=== PATIENT | female | born 1935 | race Caucasian/White ===

== ENCOUNTER → 2016-02-20 | Outpatient (CLI) | payer MEDICARE | LOC: RAD 16:08 | PROVIDERS: ATTEND Internal Medicine | DX: R41.3 Other amnesia (principal) | CPT/HCPCS: 70450 ==

== ENCOUNTER 2016-03-29 23:50 | Emergency (ER) | payer MEDICARE ==
[2016-03-30] MEDS ORDERED: LIDOCAINE 4%/TETRACAINE 0.5%/EPI 0.18% 5 ML TOPICAL SOLN TOP ONE (00:03)
[2016-03-30] MEDS ORDERED: DIPH/PERTUSS(ACELL)/TETANUS VAC/PF 0.5 ML SYR (>=10YO) IM ONE (00:04)
--- NOTE | 2016-03-30 00:05 | ER Document Report ---
ED Wound - General Stated Complaint: ANKLE LACERATION Time seen by provider: 00:00 Notes: Patient is a 80-year-old female that comes emergency department for chief complaint of a bleeding area on her left lateral ankle that started earlier this evening, patient is unsure if she scratched or grazed the area, the area has not stopped bleeding. Patient is on warfarin for atrial fibrillation. Patient states she does not think she is up-to-date on her tetanus. TRAVEL OUTSIDE OF THE [place] IN LAST 30 DAYS: No - Related Data Allergies/Adverse Reactions: hydromorphone HCl [From Dilaudid] Allergy (Intermediate, Verified 11/02/13 01:45 ) itching all over gabapentin [Gabapentin] Allergy (Verified 10/04/14 17:36) pregabalin [From Lyrica] Allergy (Verified 10/04/14 17:36) Past Medical History - General Information source: Patient - Social History Smoking Status: Never Smoker Frequency of alcohol use: None Drug Abuse: None Lives with: Family Family History: Reviewed & Not Pertinent - Past Medical History Cardiac Medical History: Reports: Hx Atrial Fibrillation, Hx Hypercholesterolemia, Hx Hypertension Denies: Hx Heart Attack Pulmonary Medical History: Reports: Hx Bronchitis - 1973, Hx Pneumonia - as a child Denies: Hx Asthma, Hx COPD Neurological Medical History: Denies: Hx Seizures Endocrine Medical History: Reports: Hx Diabetes Mellitus Type 2 GI Medical History: Denies: Hx Hepatitis, Hx Hiatal Hernia, Hx Ulcer Musculoskeltal Medical History: 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 Denies: Hx Mastectomy, Hx Open Heart Surgery, Hx Pacemaker - Immunizations Hx Diphtheria, Pertussis, Tetanus Vaccination: Yes Hx Pneumococcal Vaccination: 02/16/07 Review of Systems - Review of Systems Constitutional: No symptoms reported EENT: No symptoms reported Cardiovascular: No symptoms reported Respiratory: No symptoms reported Gastrointestinal: No symptoms reported Genitourinary: No symptoms reported Female Genitourinary: No symptoms reported Musculoskeletal: No symptoms reported Skin: See HPI Hematologic/Lymphatic: No symptoms reported Neurological/Psychological: No symptoms reported Physical Exam - Vital signs Vitals: Temp Pulse Resp BP Pulse Ox 98.1 F 84 20 122/63 96 03/30/16 01:20 03/30/16 01:20 03/30/16 01:20 03/30/16 01:20 03/30/16 01:20 Interpretation: Normal - General General appearance: Appears well, Alert In distress: None - HEENT Head: Normocephalic, Atraumatic Eyes: Normal Pupils: PERRL - Respiratory Respiratory status: No respiratory distress Chest status: Nontender Breath sounds: Normal Chest palpation: Normal - Cardiovascular Rhythm: Regular Heart sounds: Normal auscultation Murmur: No - Abdominal Inspection: Normal Distension: No distension Bowel sounds: Normal Tenderness: Nontender Organomegaly: No organomegaly - Back Back: Normal, Nontender - Extremities General upper extremity: Normal inspection, Nontender, Normal color, Normal ROM , Normal temperature General lower extremity: Other - Right lateral distal tibial area with a very small superficial laceration and a persistently bleeding varicose vein, otherwise unremarkable lower extremity exam - Neurological Neuro grossly intact: Yes Cognition: Normal Orientation: AAOx4 [place] Coma Scale Eye Opening: Spontaneous [place] Coma Scale Verbal: Oriented [place] Coma Scale Motor: Obeys Commands [place] Coma Scale Total: 15 Speech: Normal Motor strength normal: LUE, RUE, LLE, RLE Sensory: Normal - Psychological Associated symptoms: Normal affect, Normal mood - Skin Skin Temperature: Warm Skin Moisture: Dry Skin Color: Normal Course - Re-evaluation Re-evalutation: Crossing stitch performed because of continuing bleeding from a varicose vein. This was examined and no further bleeding was noted. Dressing applied. Patient will be covered with Bactrim because of lower extremity bleeding/wound and diabetes. Follow-up instructions and return precautions discussed. Patient and daughter state understanding and agreement. - Vital Signs Vital signs: Temp Pulse Resp BP Pulse Ox 98.1 F 84 20 122/63 96 03/30/16 01:20 03/30/16 01:20 03/30/16 01:20 03/30/16 01:20 03/30/16 01:20 Procedures - Laceration/Wound Repair right lateral ankle Wound length (cm): 0.5 Wound's Depth, Shape: Superficial Laceration pre-procedure: Sterile PPE donned, Sterile drapes applied, Other - Surgical cleanser Anesthetic type: Other - l.e.t. 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 Follow-up for removal of suture in about 5 days. Take antibiotic as directed. Return immediately for any concerning worsening symptoms including re-bleeding, swelling, redness, fever, pus drainage, etc. Prescriptions: Sulfamethoxazole/Trimethoprim [Bactrim Ds Tablet] 1 each PO BID #10 tablet
[2016-03-30] MEDS ORDERED: LIDOCAINE 1% INJ-PF (10 MG/ML) 30 ML SDV ONE (00:28)
[2016-03-30 01:30] VITALS: BP 122/63
== END 2016-03-30 01:21 | disposition home or self-care (01) ==
LOC: ER 23:50
PROC: 0HQMXZZ Repair Right Foot Skin, External Approach (ICD-10-PCS; principal; 2016-03-29)
DX: S91.012A Laceration without foreign body, left ankle, initial encounter (principal); Z79.01 Long term (current) use of anticoagulants; W45.8XXA Other foreign body or object entering through skin, initial encounter
CPT/HCPCS: 90471; 90715; 99283; J3490

== ENCOUNTER 2017-07-15 17:31 | Inpatient (IN) | payer MEDICARE ==
[2017-07-15 18:11] LABS: ABSOLUTE EOSINOPHILS # (AUTO) 0.2 10^3/uL (0.0-0.6); ABSOLUTE LYMPHOCYTES (AUTO) 1.8 10^3/uL (0.5-4.7); ABSOLUTE MONOCYTES (AUTO) 0.7 10^3/uL (0.1-1.4); ABSOLUTE NEUT (AUTO) 5.3 10^3/uL (1.7-8.2); BASOPHILS % (AUTO) 0.5 % (0-2); EOSINOPHILS % (AUTO) 2.1 % (0-6); HEMATOCRIT 41.2 % (36.0-47.0); HEMOGLOBIN 13.9 g/dL (12.0-15.5); LYMPHOCYTES % (AUTO) 22.2 % (13-45); MEAN CORPUSCULAR HEMOGLOBIN 31.2 pg (27.0-33.4); MEAN CORPUSCULAR HGB CONC 33.8 g/dL (32.0-36.0); MEAN CORPUSCULAR VOLUME 92 fl (80-97); MONOCYTES % (AUTO) 8.6 % (3-13); PLATELET COUNT 200 10^3/uL (150-450); RED BLOOD COUNT 4.46 10^6/uL (3.72-5.28); RED CELL DISTRIBUTION WIDTH 14.2 % (11.5-14.0); SEGMENTED NEUTROPHILS % (AUTO) 66.6 % (42-78); TOTAL CELLS COUNTED % (AUTO) 100 %
[2017-07-15 19:19] LABS: ALANINE AMINOTRANSFERASE 32 U/L (9-52); ALBUMIN 4.4 g/dL (3.5-5.0); ALKALINE PHOSPHATASE 89 U/L (38-126); ANION GAP 14 (5-19); ASPARTATE AMINO TRANSFERASE 33 U/L (14-36); BILIRUBIN,DIRECT 0.3 mg/dL (0.0-0.4); BILIRUBIN,TOTAL 0.3 mg/dL (0.2-1.3); BLOOD UREA NITROGEN 24 mg/dL (7-20); CALCIUM 9.9 mg/dL (8.4-10.2); CARBON DIOXIDE 29 mmol/L (22-30); CHLORIDE 102 mmol/L (98-107); GLUCOSE 100 mg/dL (75-110); POTASSIUM 4.1 mmol/L (3.6-5.0); SODIUM 144.7 mmol/L (137-145); TOTAL PROTEIN 7.8 g/dL (6.3-8.2)
[2017-07-15 19:23] LABS: ALCOHOL < 10 mg/dL (NONE DETECTED)
--- NOTE | 2017-07-15 19:54 | RADIOLOGY REPORT (SQ) ---
EXAM DESCRIPTION: CT HEAD WITHOUT COMPLETED DATE/TIME: 07/15/2017 7:33 pm REASON FOR STUDY: ams COMPARISON: 02/20/2016 TECHNIQUE: Axial images acquired through the brain without intravenous contrast. Images reviewed wi th bone, brain and subdural windows. Additional sagittal and coronal reconstructions were generated. Images stored on PACS. All CT scanners at this facility use dose modulation, iterative reconstruction, and/or weight based d osing when appropriate to reduce radiation dose to as low as reasonably achievable (ALARA). [facility]: Dose Right [facility]: CareDose [facility]: Dose Right [facility]: Teradose 4D [facility]: Smart PixelOptics RADIATION DOSE: CT Rad equipment meets quality standard of care and radiation dose reduction techniq ues were employed. CTDIvol: 53.2 mGy. DLP: 964 mGy-cm. mGy. LIMITATIONS: None. FINDINGS: VENTRICLES: Slightly prominent. CEREBRUM: Mild cortical atrophy. No masses. No hemorrhage. No midline shift. No evidence for acut e infarction. Few scattered areas of low density in the white matter most likely chronic small vessel ischemic changes. CEREBELLUM: No masses. No hemorrhage. No alteration of density. No evidence for acute infarction. EXTRAAXIAL SPACES: No fluid collections. No masses. ORBITS AND GLOBE: No intra- or extraconal masses. Normal contour of globe without masses. CALVARIUM: No fracture. PARANASAL SINUSES: No fluid or mucosal thickening. SOFT TISSUES: No mass or hematoma. OTHER: No other significant finding. IMPRESSION: MILD CHRONIC MICROVASCULAR ISCHEMIA. NO ACUTE IMAGING FINDINGS IN THE BRAIN. EVIDENCE OF ACUTE STROKE: NO. COMMENT: Quality ID # [id number]: Final reports with documentation of one or more dose reduction techniques (e.g., Automated exposure control, adjustment of the mA and/or kV according to patient size, use of iterative reconstruction technique) TECHNICAL DOCUMENTATION: JOB ID: [id number] [employer]- All Rights Reserved Reading location - IP/workstation name: [email or web address]
--- NOTE | 2017-07-15 20:00 | RADIOLOGY REPORT (SQ) ---
EXAM DESCRIPTION: CHEST SINGLE VIEW COMPLETED DATE/TIME: 07/15/2017 7:47 pm REASON FOR STUDY: ams COMPARISON: 10/01/2015 EXAM PARAMETERS: NUMBER OF VIEWS: One view. TECHNIQUE: Single frontal radiographic view of the chest acquired. RADIATION DOSE: NA LIMITATIONS: None. FINDINGS: LUNGS AND PLEURA: No opacities, masses or pneumothorax. No pleural effusion. MEDIASTINUM AND HILAR STRUCTURES: No masses. Contour normal. HEART AND VASCULAR STRUCTURES: Heart normal in size. Normal vasculature. BONES: No acute findings. HARDWARE: Pacemaker. OTHER: No other significant finding. IMPRESSION: NO ACUTE RADIOGRAPHIC FINDING IN THE CHEST. TECHNICAL DOCUMENTATION: JOB ID: [id number] [employer]- All Rights Reserved Reading location - IP/workstation name: [email or web address]
[2017-07-15] MEDS ORDERED: DILTIAZEM HCL 120 MG CAP.SR.24H PO ONE (20:26)
[2017-07-15] MEDS ORDERED: DILTIAZEM HCL/D5W 125 MG/125 ML RTUINJ IV PRN (20:26)
[2017-07-15 20:38] LABS: INTERNATIONAL RATION (INR) 1.76; PROTHROMBIN TIME 21.4 SEC (11.4-15.4)
[2017-07-15 20:39] LABS: PARTIAL THROMBOPLASTIN TIME 42.6 SEC (23.5-35.8)
[2017-07-15] MEDS ORDERED: DILTIAZEM HCL INJ 25 MG/5 ML VIAL IV ONE (22:23)
[2017-07-15] MEDS ORDERED: NORMAL SALINE 500 ML IV ONE (22:38)
[2017-07-15] MEDS ORDERED: FLECAINIDE ACETATE 100 MG TABLET PO ONE (22:39)
--- NOTE | 2017-07-15 23:11 | EKG REPORT ---
SEVERITY:- ABNORMAL ECG - ATRIAL FIBRILLATION REPOLARIZATION ABNORMALITY, PROB RATE RELATED : Confirmed by: Jairon Sullivan 15-Jul-2017 23:10:23
[2017-07-15] MEDS ORDERED: GLUCAGON,HUMAN RECOMB 1 MG INJ IM PRN (23:39)
[2017-07-15] MEDS ORDERED: DEXTROSE 50%-WATER 25 GM/50 ML DISP.SYRIN IV PRN ×2 (23:39)
[2017-07-15] MEDS ORDERED: DEXTROSE 40% GEL 15 GM TUBE PO PRN ×2 (23:39)
[2017-07-15] MEDS ORDERED: ACETAMINOPHEN 325 MG TABLET PO PRN (23:40)
[2017-07-15] MEDS ORDERED: MAGNESIUM HYDROXIDE SUSP 30 ML UDCUP PO PRN (23:40)
[2017-07-15 23:49] LABS: APPEARANCE,URINE CLOUDY; BILIRUBIN,URINE NEGATIVE (NEGATIVE); GLUCOSE, URINE 150 mg/dL (NEGATIVE); KETONES,URINE NEGATIVE (NEGATIVE); LEUKOCYTE ESTERASE,URINE MODERATE (NEGATIVE); NITRITE,URINE NEGATIVE (NEGATIVE); PROTEIN,URINE 30 mg/dL (NEGATIVE); URINE SPECIFIC GRAVITY 1.019; UROBILINOGEN,URINE NEGATIVE mg/dL (<2.0)
[2017-07-15 23:51] LABS: COLOR,URINE YELLOW
[2017-07-16 00:02] LABS: URINE AMPHETAMINES SCREEN NEGATIVE; URINE BARBITURATES SCREEN NEGATIVE; URINE BENZODIAZEPINES SCREEN NEGATIVE; URINE MARIJUANA (THC) SCREEN NEGATIVE; URINE METHADONE SCREEN NEGATIVE; URINE PHENCYCLIDINE SCREEN NEGATIVE
[2017-07-16 00:03] LABS: URINE COCAINE SCREEN NEGATIVE
[2017-07-16] MEDS ORDERED: WARFARIN SODIUM 5 MG TABLET PO ONE (00:15)
--- NOTE | 2017-07-16 00:29 | ER Document Report ---
ED General - General Chief Complaint: Altered Mental Status Stated Complaint: ALTERED MENTAL STATUS Time Seen by Provider: 07/15/17 18:18 TRAVEL OUTSIDE OF THE [place] IN LAST 30 DAYS: No - HPI Patient complains to provider of: Altered mental state Notes: Patient coming in with an expressive aphasia states ongoing family at bedside states symptoms started day prior to arrival. Patient states she has been having trouble with finding her words and also family at bedside states she had some intermittent slurred speech. Patient is does not give a history of stroke in the past however does have a history of atrial fibrillation. Upon patient patient to monitor the found the patient is in A. fib with RVR. Patient states otherwise compliant with her medications except for her evening doses. Patient denies any chest pain abdominal pain pain fevers chills nausea vomiting diarrhea head trauma. Patient resting comfortably upon my evaluation - Related Data Allergies/Adverse Reactions: hydromorphone HCl [From Dilaudid] Allergy (Intermediate, Verified 11/02/13 01:45 ) itching all over gabapentin [Gabapentin] Allergy (Verified 10/04/14 17:36) pregabalin [From Lyrica] Allergy (Verified 10/04/14 17:36) Past Medical History - Social History Smoking Status: Former Smoker Chew tobacco use (# tins/day): No Frequency of alcohol use: None Drug Abuse: None Family History: Reviewed & Not Pertinent Patient has suicidal ideation: No Patient has homicidal ideation: No - Past Medical History Cardiac Medical History: Reports: Hx Atrial Fibrillation, Hx Hypercholesterolemia, Hx Hypertension Denies: Hx Heart Attack Pulmonary Medical History: Reports: Hx Bronchitis - 1974, Hx Pneumonia - as a child Denies: Hx Asthma, Hx COPD Neurological Medical History: Denies: Hx Seizures Endocrine Medical History: Reports: Hx Diabetes Mellitus Type 2 Renal/ Medical History: Denies: Hx Peritoneal Dialysis GI Medical History: Denies: Hx Hepatitis, Hx Hiatal Hernia, Hx Ulcer Musculoskeltal Medical History: 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 Denies: Hx Mastectomy, Hx Open Heart Surgery, Hx Pacemaker - Immunizations Hx Diphtheria, Pertussis, Tetanus Vaccination: Yes Hx Pneumococcal Vaccination: 02/16/07 Review of Systems - Review of Systems Constitutional: No symptoms reported EENT: No symptoms reported Cardiovascular: No symptoms reported Respiratory: No symptoms reported Gastrointestinal: No symptoms reported Genitourinary: No symptoms reported Female Genitourinary: No symptoms reported Musculoskeletal: No symptoms reported Skin: No symptoms reported Hematologic/Lymphatic: No symptoms reported Neurological/Psychological: Other - Aphasia -: Yes All other systems reviewed and negative Physical Exam - Vital signs Vitals: Resp Pulse Ox 15 96 07/15/17 17:42 07/15/17 17:42 Interpretation: Normal - General General appearance: Appears well, Alert - HEENT Head: Normocephalic, Atraumatic Eyes: Normal Pupils: PERRL - Respiratory Respiratory status: No respiratory distress Chest status: Nontender Breath sounds: Normal Chest palpation: Normal - Cardiovascular Rhythm: Irregularly irregular, Tachycardia Heart sounds: Normal auscultation Murmur: No - Abdominal Inspection: Normal Distension: No distension Bowel sounds: Normal Tenderness: Nontender Organomegaly: No organomegaly - Back Back: Normal, Nontender - Extremities General upper extremity: Normal inspection, Nontender, Normal color, Normal ROM , Normal temperature General lower extremity: Normal inspection, Nontender, Normal color, Normal ROM , Normal temperature, Normal weight bearing. No: Murali's sign - Neurological Neuro grossly intact: Yes Cognition: Normal Orientation: AAOx4 [place] Coma Scale Eye Opening: Spontaneous [place] Coma Scale Verbal: Oriented [place] Coma Scale Motor: Obeys Commands [place] Coma Scale Total: 15 Speech: Normal Motor strength normal: LUE, RUE, LLE, RLE Sensory: Normal - Psychological Associated symptoms: Normal affect, Normal mood - Skin Skin Temperature: Warm Skin Moisture: Dry Skin Color: Normal Course - Re-evaluation Re-evalutation: 07/16/17 02:[address] did not show any signs of acute pathology patient's EKG shows A. fib with RVR patient was started on Cardizem given her home Cardizem dose laboratory studies not reveal any significant pathology for her symptoms patient states that while being here in ER she feels like her speech has improved. Did discuss with the hospitalist will admit the patient for further evaluation. - Vital Signs Vital signs: Temp Pulse Resp BP Pulse Ox 13 143/81 H 92 07/16/17 01:30 07/16/17 01:30 07/16/17 01:30 - Laboratory Result Diagrams: 07/15/17 17:10 07/15/17 18:50 Laboratory results interpreted by me: 07/15/17 07/15/17 07/15/17 17:10 17:10 18:50 RDW 14.2 H PT 21.4 H APTT 42.6 H BUN 24 H Est GFR ( Amer) 55 L Est GFR (Non-Af Amer) 45 L Urine Protein Urine Glucose (UA) Ur Leukocyte Esterase Urine Ascorbic Acid 07/15/17 23:21 RDW PT APTT BUN Est GFR ( Amer) Est GFR (Non-Af Amer) Urine Protein 30 H Urine Glucose (UA) 150 H Ur Leukocyte Esterase MODERATE H Urine Ascorbic Acid 40 H Critical Care Note - Critical Care Note Total time excluding time spent on procedures (mins): 35 Comments: Multiple evaluation for patient with A. fib RVR Discharge - Discharge Clinical Impression: Atrial fibrillation with RVR, Intermittent expressive aphasia Altered mental status Qualifiers: Altered mental status type: unspecified Qualified Code(s): R41.82 - Altered mental status, unspecified Condition: Good Disposition: ADMITTED INPATIENT Admitting Provider: Hospitalist [facility] Admitted: [facility]
[2017-07-16] MEDS ORDERED: FLECAINIDE ACETATE 100 MG TABLET ONE (00:37)
[2017-07-16] MEDS ORDERED: DILTIAZEM HCL 120 MG CAP.SR.24H PO ONE ×2 (01:00→04:00)
[2017-07-16] MEDS ORDERED: CARBAMAZEPINE 100 MG TAB.SR.12H PO ONE ×2 (03:45→03:59)
[2017-07-16 05:40] LABS: ABSOLUTE EOSINOPHILS # (AUTO) 0.2 10^3/uL (0.0-0.6); ABSOLUTE LYMPHOCYTES (AUTO) 1.5 10^3/uL (0.5-4.7); ABSOLUTE MONOCYTES (AUTO) 0.8 10^3/uL (0.1-1.4); ABSOLUTE NEUT (AUTO) 5.3 10^3/uL (1.7-8.2); BASOPHILS % (AUTO) 0.5 % (0-2); EOSINOPHILS % (AUTO) 2.7 % (0-6); HEMOGLOBIN 12.6 g/dL (12.0-15.5); LYMPHOCYTES % (AUTO) 19.1 % (13-45); MEAN CORPUSCULAR HEMOGLOBIN 31.1 pg (27.0-33.4); MEAN CORPUSCULAR VOLUME 91 fl (80-97); MONOCYTES % (AUTO) 10.4 % (3-13); PLATELET COUNT 174 10^3/uL (150-450); RED BLOOD COUNT 4.05 10^6/uL (3.72-5.28); RED CELL DISTRIBUTION WIDTH 14.4 % (11.5-14.0); SEGMENTED NEUTROPHILS % (AUTO) 67.3 % (42-78); TOTAL CELLS COUNTED % (AUTO) 100 %; WHITE BLOOD COUNT 7.9 10^3/uL (4.0-10.5)
--- NOTE | 2017-07-16 05:57 | PDOC H&P ---
History of Present Illness Admission Date/PCP: 07/16/17 00:30 JOVI SANCHEZ MD Patient complains of: Slurred speech History of Present Illness: CLARENCE MOLINA is a 81 year old female with an extensive past medical history of atrial fibrillation, obstructive sleep apnea, obesity, diabetes, chronic pain , bipolar, polymyalgia rheumatica and GERD. She presents with 1 week of altered mental status described as intermittent confusion, word finding difficulty and slurred speech. Each episode has resolved spontaneously to baseline without intervention. She presents to her primary care provider Dr. Ottoniel Oritz and is found to be in A. fib with RVR in the 120s. She is referred to the emergency room for evaluation. She started on IV Cardizem and receives flecainide resulting in a heart rate in 80s. She denies chest pain, headache, nausea vomiting, confusion or recent change in medications. Patient describes exceptional social stressor as her debilitated has been discharged from [facility] to home today. Workup is remarkable for A. fib with RVR and a subtherapeutic INR, she is referred to the hospitalist for admission. Past Medical History Cardiac Medical History: Reports: Atrial Fibrillation, Hyperlipidema, Hypertension Denies: Myocardial Infarction Pulmonary Medical History: Reports: Bronchitis - 1973, Pneumonia - as a child Denies: Asthma, Chronic Obstructive Pulmonary Disease (COPD) Neurological Medical History: Denies: Seizures Endocrine Medical History: Reports: Diabetes Mellitus Type 2 GI Medical History: Denies: Hepatitis, Hiatal Hernia Musculoskeltal Medical History: Reports: Arthritis - generalized Psychiatric Medical History: Denies: Depression Hematology: Denies: Anemia, Sickle Cell Disease Past Surgical History Past Surgical History: Reports: Appendectomy, Hysterectomy, Tonsillectomy Denies: Amputation, Mastectomy, Pacemaker Social History Information Source: Patient Lives with: Spouse/Significant other Smoking Status: Former Smoker Number of Years Smokin Last Time Smoked: 27 Frequency of Alcohol Use: None Hx Recreational Drug Use: No Drugs: None Hx Prescription Drug Abuse: No - Advance Directive Resuscitation Status: Full Code Family History Family History: COPD Parental Family History Reviewed: Yes Children Family History Reviewed: Yes Sibling(s) Family History Reviewed.: Yes Medication/Allergy Home Medications: Aspirin [Aspirin 81 mg Chewable Tablet] 81 mg PO DAILY 09/22/14 Atenolol 100 mg PO BID 09/22/14 Budesonide/Formoterol Fumarate [Symbicort HFA 160-4.5 mcg Inhaler 6 gm] 1 dose IH ASDIR PRN 09/22/14 Cholecalciferol (Vitamin D3) [Vitamin D3 2000 unit Tablet] 1 tab PO DAILY Citalopram Hydrobromide [Celexa 10 mg Tablet] 1 tab PO DAILY 09/22/14 Clobetasol Propionate [Clobetasol Propionate Cream] 1 dose TOP BID 09/22/14 Cyanocobalamin (Vitamin B-12) [Vitamin B-12 SR 2000 mcg Tablet] 2,000 mcg PO DAILY 09/22/14 Diltiazem HCl [Cartia Xt] 120 mg PO BID 09/22/14 Flecainide Acetate [Tambocor 100 mg Tablet] 100 mg PO BID 09/22/14 Levothyroxine Sodium [Synthroid 0.112 mg Tablet] 112 mcg PO DAILY 09/22/14 Lisinopril 20 mg PO DAILY 09/22/14 Methotrexate Sodium [Methotrexate] 15 mg PO ASDIR 09/22/14 NPH, Human Insulin Isophane [Novolin N (NPH) Insulin 100 unit/mL] 40 units SUBCUT MEALS 09/22/14 Nortriptyline HCl [Pamelor 25 mg Capsule] 25 mg PO QHS 09/22/14 Pantoprazole Sodium [Protonix] 40 mg PO BID 09/22/14 Simvastatin 20 mg PO DAILY 09/22/14 Tiotropium [place] [Spiriva Handihaler 18 mcg/dose (30 Dose)] 1 cap IH ASDIR PRN 09/22/14 Warfarin Sodium 5 mg PO DAILY 09/22/14 Carbamazepine [Carbamazepine ER] 100 mg PO BID 10/02/15 Amox Tr/Potassium Clavulanate [Augmentin 250-62.5 mg/5 ml Susp] 500 mg PO Q8 # 14 bottle 10/03/15 Meclizine HCl [Antivert 12.5 mg Tablet] 25 mg PO Q8 PRN #90 tablet 10/03/15 Sulfamethoxazole/Trimethoprim [Bactrim Ds Tablet] 1 each PO BID #10 tablet 03/30 Allergies/Adverse Reactions: hydromorphone HCl [From Dilaudid] Allergy (Intermediate, Verified 11/02/13 01:45 ) itching all over gabapentin [Gabapentin] Allergy (Verified 10/04/14 17:36) pregabalin [From Lyrica] Allergy (Verified 10/04/14 17:36) Review of Systems Constitutional: ABSENT: chills, fever(s), headache(s), weight gain, weight loss Eyes: ABSENT: visual disturbances Ears: ABSENT: hearing changes Cardiovascular: ABSENT: chest pain, dyspnea on exertion, edema, orthropnea, palpitations Respiratory: ABSENT: cough, hemoptysis Gastrointestinal: ABSENT: abdominal pain, constipation, diarrhea, hematemesis, hematochezia, nausea, vomiting Genitourinary: ABSENT: dysuria, hematuria Musculoskeletal: ABSENT: joint swelling Integumentary: ABSENT: rash, wounds Neurological: ABSENT: abnormal gait, abnormal speech, confusion, dizziness, focal weakness, syncope Psychiatric: ABSENT: anxiety, depression, homidical ideation, suicidal ideation Endocrine: ABSENT: cold intolerance, heat intolerance, polydipsia, polyuria Hematologic/Lymphatic: ABSENT: easy bleeding, easy bruising Physical Exam Vital Signs: Temp Pulse Resp BP Pulse Ox 98 F 81 20 138/75 H 92 07/16/17 04:04 07/16/17 04:04 07/16/17 04:04 07/16/17 04:04 07/16/17 04:04 Intake & Output 07/14/17 07/15/17 07/16/17 11:59 11:59 11:59 Weight 95.5 kg General appearance: PRESENT: no acute distress, cooperative, well-developed, well-nourished Head exam: PRESENT: atraumatic, normocephalic Eye exam: PRESENT: conjunctiva pink, EOMI, PERRLA. ABSENT: scleral icterus Ear exam: PRESENT: normal external ear exam Mouth exam: PRESENT: moist, tongue midline Neck exam: ABSENT: carotid bruit, JVD, lymphadenopathy, thyromegaly Respiratory exam: PRESENT: clear to auscultation chelo. ABSENT: rales, rhonchi, wheezes Cardiovascular exam: PRESENT: irregular rhythm, tachycardia. ABSENT: diastolic murmur, rubs, systolic murmur Pulses: PRESENT: normal dorsalis pedis pul Vascular exam: PRESENT: normal capillary refill GI/Abdominal exam: PRESENT: normal bowel sounds, soft. ABSENT: distended, guarding, mass, organolmegaly, rebound, tenderness Rectal exam: PRESENT: deferred Extremities exam: PRESENT: full ROM. ABSENT: calf tenderness, clubbing, pedal edema Neurological exam: PRESENT: alert, awake, oriented to person, oriented to place , oriented to time, oriented to situation, CN II-XII grossly intact. ABSENT: motor sensory deficit Psychiatric exam: PRESENT: anxious. ABSENT: homicidal ideation, suicidal ideation Skin exam: PRESENT: dry, intact, warm. ABSENT: cyanosis, rash Results Laboratory Results: 07/16/17 05:14 07/16/17 05:14 WBC 7.9 RBC 4.05 Hgb 12.6 Hct 37.0 MCV 91 MCH 31.1 MCHC 34.0 RDW 14.4 H Plt Count 174 Seg Neutrophils % 67.3 Lymphocytes % 19.1 Monocytes % 10.4 Eosinophils % 2.7 Basophils % 0.5 Absolute Neutrophils 5.3 Absolute Lymphocytes 1.5 Absolute Monocytes 0.8 Absolute Eosinophils 0.2 Absolute Basophils 0.0 Impressions: Head CT 07/15/17 19:10 IMPRESSION: MILD CHRONIC MICROVASCULAR ISCHEMIA. NO ACUTE IMAGING FINDINGS IN THE BRAIN. EVIDENCE OF ACUTE STROKE: NO. Chest X-Ray 07/15/17 19:11 IMPRESSION: NO ACUTE RADIOGRAPHIC FINDING IN THE CHEST. Assessment & Plan - Diagnosis (1) Altered mental status Qualifiers: Altered mental status type: unspecified Qualified Code(s): R41.82 - Altered mental status, unspecified Is this a current diagnosis for this admission?: Yes Plan: Toxic Encephalopathy versus TIA versus adjustment disorder with delirium. Patient currently at baseline will reevaluate after Tegretol, obtain MRI and carotid artery ultrasound, lipid profile. Permissive hypertension and reassurance (2) Subtherapeutic international normalized ratio (INR) Is this a current diagnosis for this admission?: Yes Plan: Arixtra bridge continue Coumadin follow-up INR (3) Atrial fibrillation with RVR Is this a current diagnosis for this admission?: Yes Plan: IV Cardizem titration to p.o. as possible, follow-up cardiac enzymes TSH - Time Time Spent: 30 to 50 Minutes - Inpatient Certification Medical Necessity: Need Close Monitoring Due to Risk of Patient Decompensation
[2017-07-16 05:59] LABS: ANION GAP 12 (5-19); BLOOD UREA NITROGEN 19 mg/dL (7-20); CARBON DIOXIDE 29 mmol/L (22-30); CHLORIDE 105 mmol/L (98-107); CHOLESTEROL 298.35 mg/dL (0-200); GLUCOSE 79 mg/dL (75-110); POTASSIUM 3.4 mmol/L (3.6-5.0); SODIUM 145.5 mmol/L (137-145); TRIGLYCERIDES 488 mg/dL (<150)
[2017-07-16] MEDS ORDERED: HEPARIN SOD (PORCINE) 5,000 UNIT/ML 1 ML SYRINGE SUBCUT SCH (06:00)
[2017-07-16 06:11] LABS: DIRECT LDL 91 mg/dL (<100)
[2017-07-16 07:19] LABS: INTERNATIONAL RATION (INR) 1.68; PROTHROMBIN TIME 20.6 SEC (11.4-15.4)
[2017-07-16] MEDS ORDERED: FONDAPARINUX SODIUM INJ 5 MG/0.4 ML DISP.SYRIN SUBCUT ONE (08:30)
[2017-07-16] MEDS: DOCUSATE SODIUM 100 MG CAPSULE PO SCH ×2 (09:14→18:14)
[2017-07-16] MEDS: INSULIN GLARGINE,HUM.REC.ANLOG 300 UNIT/3 ML INSULN.PEN SUBCUT SCH (09:14)
[2017-07-16] MEDS: BUDESONIDE/FORMOTEROL 160-4.5 MCG 60 PUFF/6 GM MDI IH SCH ×2 (09:16→18:12)
[2017-07-16] MEDS ORDERED: MECLIZINE HCL 12.5 MG TABLET PO PRN (09:18)
[2017-07-16] MEDS: DILTIAZEM HCL 120 MG CAP.SR.24H PO SCH ×2 (09:52→21:15)
[2017-07-16] MEDS: ASPIRIN 81 MG TABLET, ENT COATED PO SCH (09:53)
[2017-07-16] MEDS ORDERED: LEVOTHYROXINE SODIUM 0.112 MG TABLET PO ONE (10:00)
[2017-07-16] MEDS ORDERED: DILTIAZEM HCL 120 MG CAP.SR.24H PO SCH ×2 (10:00→18:00)
[2017-07-16] MEDS ORDERED: (PENDING PHARMACY ID) (Cholecalciferol (Vitamin D3) [Vitamin D3 2000 Unit Tablet] 2,000 UN PO SCH (10:00)
[2017-07-16] MEDS ORDERED: (PENDING PHARMACY ID) (Lactobacillus Acidophilus [Probiotic] 1 EACH) PO SCH (10:00)
[2017-07-16] MEDS ORDERED: ASPIRIN 81 MG TABLET, CHEWABLE PO SCH (10:00)
[2017-07-16] MEDS ORDERED: (PENDING PHARMACY ID) (Diltiazem Hcl [Diltiazem Er] 120 MG) PO SCH (10:00)
[2017-07-16] MEDS ORDERED: (PENDING PHARMACY ID) (Donepezil Hcl [Aricept] 10 MG) PO SCH (10:00)
[2017-07-16] MEDS ORDERED: [UNRECOGNIZED DRUG - OTHER] PO SCH (10:00)
[2017-07-16] MEDS ORDERED: CARBAMAZEPINE 100 MG TAB.SR.12H PO SCH ×2 (10:00→18:00)
[2017-07-16] MEDS ORDERED: CYANOCOBALAMIN PO SCH (10:00)
[2017-07-16] MEDS: DONEPEZIL HCL 5 MG TABLET PO SCH (10:33)
[2017-07-16] MEDS: LACTOBACILLUS ACIDOPHILUS 250 MG TAB PO SCH ×2 (10:33→18:14)
[2017-07-16] MEDS: FOLIC ACID 1 MG TABLET PO SCH (10:34)
[2017-07-16] MEDS: PRENATAL VITAMIN W DHA CAPSULE PO SCH (10:34)
[2017-07-16] MEDS: PROPAFENONE HCL 150 MG TABLET PO SCH ×2 (10:34→21:15)
[2017-07-16] MEDS: CYANOCOBALAMIN (VITAMIN B-12) 1,000 MCG TABLET PO SCH (10:34)
--- NOTE | 2017-07-16 10:34 | PROGRESS NOTE E ---
Progress Note NAME: CLARENCE MOLINA : 1935 AGE: 81Y DATE: 07/16/2017 ROOM: 318 SUBJECTIVE: The patient is sitting on the side of the bed. The patient states that she feels much better in comparison to when she came in. The patient's main concern is inpatient versus outpatient status as well as concern about her rate control. The patient denies any nausea, vomiting, diarrhea. No shortness of breath, dizziness, chest pain. No fevers or chills. The patient has been afebrile. Blood pressure has been in a good range. The patient does not voice any other concerns at this time. REVIEW OF SYSTEMS: The rest of the review of systems is negative. MEDICATIONS: Medications have been reviewed. OBJECTIVE: GENERAL: The patient is a 81-year-old female who is awake, alert, and oriented to person, place, time, and situation. She is verbal, conversational but slightly delayed, does not appear to be distressed. VITAL SIGNS: As follows: Temperature is 98.3, pulse is 117, respirations 18, blood pressure 137/82, oxygen saturation 95% on room air. SKIN: Warm and dry. No rash. She is not diaphoretic. HEENT: Pupils equal, round, reactive to light and accommodation. Conjunctivae pink. No JVP. CARDIOVASCULAR: Heart is irregularly irregular. There is no rub. CHEST: Clear, symmetrical, unlabored. ABDOMEN: Soft, nontender, nondistended. BACK: No CVA tenderness or sacral edema. EXTREMITIES: No clubbing, cyanosis, edema. PSYCHIATRIC: Appropriate affect. Pleasant mood. DIAGNOSTICS: Lab values are as follows. Hematology obtained on 07/16/2017: WBCs are 7.9, hemoglobin is 12.6, hematocrit is 37.0, platelet count is 174,000. Chemistry obtained on 07/16/2017: Sodium is 145, potassium 3.4, chloride is 104, carbon dioxide 29, BUN 19, creatinine 0.83, glucose 79, calcium is 9.0. Triglycerides are 488, cholesterol is 298, LDL 91, VLDL unable to calculate, HDL is 49. A1c is 8.4. TSH is 3.9. IMPRESSION AND PLAN: 1. ATRIAL FIBRILLATION WITH RAPID VENTRICULAR RESPONSE. The patient has been difficult to rate control. Have resumed the patient's home medications, and she has received IV Cardizem. Will continue to monitor. If this does persist, will proceed with Cardizem drip for conversion and follow. 2. SUBTHERAPEUTIC INR IN THE SETTING OF CHRONIC ANTICOAGULATION. Given the patient remains persistently in AFib, will continue to cover the patient with Arixtra until INR becomes therapeutic and follow. 3. APHASIA. This appeared to resolve as this was the patient's main TIA symptom, currently awaiting carotid Doppler as well as MRI. In the meantime, will continue to control the patient's rate and monitor for evolving symptoms. Will continue CVA protocol to include aspirin and statin therapy. 4. HYPOTHYROIDISM. The patient's TSH is unremarkable. 5. DIABETES MELLITUS, TYPE 2. Will continue the patient's home insulin as well as sliding-scale coverage. 6. HYPERTENSION. The patient's blood pressure has been in acceptable range. 7. DEMENTIA. Will continue the patient's home medications. DISPOSITION: THE PATIENT IS A FULL CODE. Pending the patient's symptomatology and diagnostic findings, will re-evaluate as needed. Time spent on this followup, including assessment/plan, physical examination, patient education, review of records, is 35 minutes. DICTATING PHYSICIAN: BLAISE PHELAN NP [id number] PHY#: [id number] ID: [id number] JOB#: [id number] ACCT: [id number] cc: >
[2017-07-16] MEDS: CARBAMAZEPINE 200 MG TABLET PO SCH ×2 (10:35→21:15)
[2017-07-16] MEDS: CHOLECALCIFEROL (D3) 1,000 UNIT TABLET PO SCH (10:39)
[2017-07-16] MEDS ORDERED: POTASSIUM CHLORIDE 10 MEQ TABLET.SA PO ONE (11:30)
[2017-07-16] MEDS ORDERED: (PENDING PHARMACY ID) (Nph, Human Insulin Isophane [Novolin N (Nph) Insulin 100 Unit/Ml] 4 SUBCUT SCH (13:00)
[2017-07-16] MEDS: INSULIN NPH (ISOPHANE), HUMAN 100 UNIT/ML 3 ML SUBCUT SCH ×2 (13:07→17:29)
[2017-07-16] MEDS: INSULIN LISPRO 100 UNIT/ML 3 ML VIAL SUBCUT PRN ×3 (13:08→21:16)
[2017-07-16] MEDS: CLOBETASOL PROPIONATE 0.05% CREAM 15 GM TP SCH (13:09)
[2017-07-16] MEDS ORDERED: ONDANSETRON HCL INJ/PF 4 MG/2 ML SDV ONE (14:55)
--- NOTE | 2017-07-16 16:06 | RADIOLOGY REPORT (SQ) ---
EXAM DESCRIPTION: CAROTID DOPPLER COMPLETED DATE/TIME: 07/16/2017 3:53 pm REASON FOR STUDY: tia I48.2 CHRONIC ATRIAL FIBRILLATION COMPARISON: None. TECHNIQUE: Grayscale ultrasound, Doppler velocity and spectra, and color Doppler images acquired of the extra-cranial carotid and vertebral arteries. Images stored on PACS. LIMITATIONS: None. FINDINGS: RIGHT CAROTID CCA Velocities: Within normal limits. ICA Velocities Peak systolic 80 cm/s. End diastolic 20 cm/s. Proximal ICA/CCA peak systolic ratio 1.2. Spectra normal. No significant plaque. LEFT CAROTID CCA Velocities: Within normal limits. ICA Velocities Peak systolic 98 cm/s. End diastolic 35 cm/s. Proximal ICA/CCA peak systolic ratio 1.3. Spectra normal. No significant plaque. VERTEBRAL ARTERIES: Antegrade flow. Normal waveforms. SUBCLAVIAN ARTERIES: No finding. OTHER: No other significant finding. IMPRESSION: NO HEMODYNAMICALLY SIGNIFICANT STENOSIS. COMMENT: Quality ID #[id number]: Velocity criteria are extrapolated from the diameter data as defined by t he Society of Radiologists in Ultrasound Consensus Conference. Radiology 2003: 229; 340-346. TECHNICAL DOCUMENTATION: JOB ID: [id number] [employer]- All Rights Reserved Reading location - IP/workstation name: [email or web address]
[2017-07-16] MEDS: LANSOPRAZOLE 30 MG TAB.RAP.DR PO SCH (16:19)
[2017-07-16] MEDS: ATORVASTATIN CALCIUM 40 MG TABLET PO SCH (21:15)
[2017-07-16] MEDS: NORTRIPTYLINE HCL 25 MG CAPSULE PO SCH (21:16)
[2017-07-16] MEDS ORDERED: NORTRIPTYLINE HCL 25 MG CAPSULE PO SCH (22:00)
[2017-07-16] MEDS ORDERED: WARFARIN SODIUM 5 MG TABLET PO SCH (22:00)
[2017-07-17] MEDS: LANSOPRAZOLE 30 MG TAB.RAP.DR PO SCH ×2 (05:24→17:48)
[2017-07-17] MEDS: LEVOTHYROXINE SODIUM 0.112 MG TABLET PO SCH (05:24)
[2017-07-17 05:35] LABS: ANION GAP 13 (5-19); BLOOD UREA NITROGEN 19 mg/dL (7-20); CALCIUM 9.6 mg/dL (8.4-10.2); CARBON DIOXIDE 28 mmol/L (22-30); CHLORIDE 104 mmol/L (98-107); GLUCOSE 133 mg/dL (75-110); POTASSIUM 4.1 mmol/L (3.6-5.0); SODIUM 144.8 mmol/L (137-145)
[2017-07-17] MEDS: INSULIN GLARGINE,HUM.REC.ANLOG 300 UNIT/3 ML INSULN.PEN SUBCUT SCH (08:31)
[2017-07-17] MEDS: INSULIN NPH (ISOPHANE), HUMAN 100 UNIT/ML 3 ML SUBCUT SCH ×3 (08:31→17:48)
[2017-07-17] MEDS: CARBAMAZEPINE 200 MG TABLET PO SCH ×2 (09:48→21:41)
[2017-07-17] MEDS: CYANOCOBALAMIN (VITAMIN B-12) 1,000 MCG TABLET PO SCH (09:48)
[2017-07-17] MEDS: LACTOBACILLUS ACIDOPHILUS 250 MG TAB PO SCH ×2 (09:48→17:48)
[2017-07-17] MEDS: DOCUSATE SODIUM 100 MG CAPSULE PO SCH ×2 (09:48→17:48)
[2017-07-17] MEDS: PRENATAL VITAMIN W DHA CAPSULE PO SCH (09:48)
[2017-07-17] MEDS: CHOLECALCIFEROL (D3) 1,000 UNIT TABLET PO SCH (09:48)
[2017-07-17] MEDS: PROPAFENONE HCL 150 MG TABLET PO SCH ×2 (09:48→21:41)
[2017-07-17] MEDS: ASPIRIN 81 MG TABLET, ENT COATED PO SCH (09:48)
[2017-07-17] MEDS: DONEPEZIL HCL 5 MG TABLET PO SCH (09:48)
[2017-07-17] MEDS: BUDESONIDE/FORMOTEROL 160-4.5 MCG 60 PUFF/6 GM MDI IH SCH ×2 (09:48→17:48)
[2017-07-17] MEDS: FOLIC ACID 1 MG TABLET PO SCH (09:48)
[2017-07-17] MEDS: DILTIAZEM HCL 120 MG CAP.SR.24H PO SCH (09:48)
[2017-07-17] MEDS: FONDAPARINUX SODIUM INJ 5 MG/0.4 ML DISP.SYRIN SUBCUT SCH (09:49)
[2017-07-17] MEDS: INSULIN LISPRO 100 UNIT/ML 3 ML VIAL SUBCUT PRN (12:17)
--- NOTE | 2017-07-17 15:22 | PDOC PROGRESS REPORT ---
Subjective Progress Note for:: 07/17/17 Subjective:: Patient is still feeling weak. No chest pain or difficulty breathing. She is concerned about her who is at home alone. Daughter has agreed to stay with the tonight so patient feels more comfortable staying in the hospital tonight. No palpitations. Appetite poor. No fever or chills. No nausea or vomiting. Moving her bowels and urinating without difficulty. No bleeding. Reason For Visit: APHASIA DM, ANXIETY Physical Exam Vital Signs: Temp Pulse Resp BP Pulse Ox 97.9 F 126 H 19 121/84 93 07/17/17 11:18 07/17/17 14:00 07/17/17 11:18 07/17/17 11:18 07/17/17 11:18 Intake & Output 07/16/17 07/17/17 07/18/17 06:59 06:59 06:59 Intake Total 1400 591 Balance 1400 591 Weight 95.1 kg General appearance: PRESENT: cooperative, mild distress Head exam: PRESENT: atraumatic, normocephalic Eye exam: ABSENT: conjunctival injection, scleral icterus Ear exam: PRESENT: normal external ear exam Mouth exam: PRESENT: moist, tongue midline Respiratory exam: PRESENT: prolonged expiratory phas, unlabored. ABSENT: rales , rhonchi, tachypnea, wheezes Cardiovascular exam: PRESENT: irregular rhythm, tachycardia. ABSENT: systolic murmur GI/Abdominal exam: PRESENT: normal bowel sounds, soft. ABSENT: distended, tenderness Musculoskeletal exam: PRESENT: ambulatory Neurological exam: PRESENT: alert, awake, oriented to person, oriented to place , oriented to situation Psychiatric exam: PRESENT: anxious Skin exam: PRESENT: dry, warm Results Laboratory Results: 07/17/17 04:40 07/17/17 04:40 Sodium 144.8 Potassium 4.1 Chloride 104 Carbon Dioxide 28 Anion Gap 13 BUN 19 Creatinine 0.80 Est GFR ( Amer) > 60 Est GFR (Non-Af Amer) > 60 Glucose 133 H Calcium 9.6 Magnesium 1.8 Impressions: Head CT 07/15/17 19:10 IMPRESSION: MILD CHRONIC MICROVASCULAR ISCHEMIA. NO ACUTE IMAGING FINDINGS IN THE BRAIN. EVIDENCE OF ACUTE STROKE: NO. Chest X-Ray 07/15/17 19:11 IMPRESSION: NO ACUTE RADIOGRAPHIC FINDING IN THE CHEST. Carotid Doppler Study 07/16/17 00:00 IMPRESSION: NO HEMODYNAMICALLY SIGNIFICANT STENOSIS. Assessment & Plan - Diagnosis (1) Atrial fibrillation with RVR Is this a current diagnosis for this admission?: Yes Plan: Patient's heart rate is poorly controlled consistently greater than 110. I have increased her diltiazem to 180 p.o. twice daily from 120 p.o. twice daily. Her anticoagulation with fondaparinux as a bridge to therapeutic INR continues. Will recheck INR in the morning and continue warfarin. At home she is on warfarin 2 mg with a 5 mg tab as needed so I am unclear about how she is actually taking it. We will continue 5 mg for now. (2) Stroke-like symptoms Is this a current diagnosis for this admission?: Yes Plan: Symptoms have resolved. Carotid duplex negative for stenosis. CT of the head negative for acute stroke. Echocardiogram pending. Continue aspirin statin and blood pressure control. (3) Diabetes type 2, uncontrolled Is this a current diagnosis for this admission?: Yes Plan: Blood sugars are intermittently fairly well-controlled and then elevated. There have been multiple major medication changes made since admission so I will hold medications as they are and reassess tomorrow. (4) Altered mental status Qualifiers: Altered mental status type: unspecified Qualified Code(s): R41.82 - Altered mental status, unspecified Is this a current diagnosis for this admission?: Yes Plan: Patient seems to be getting closer to her baseline. Not entirely clear what the etiology of the altered mental status or metabolic encephalopathy was. Could have been related to A. fib with RVR versus TIA. (5) Subtherapeutic international normalized ratio (INR) Is this a current diagnosis for this admission?: Yes (6) Dementia Is this a current diagnosis for this admission?: Yes Plan: Unknown type. Continue her donepezil. - Time Time Spent with patient: 25-34 minutes Medications reviewed and adjusted accordingly: Yes Anticipated discharge: Home - Inpatient Certification Based on my medical assessment, after consideration of the patient's comorbidities, presenting symptoms, or acuity I expect that the services needed warrant INPATIENT care.: Yes I certify that my determination is in accordance with my understanding of Medicare's requirements for reasonable and necessary INPATIENT services [42 CFR 412.3e].: Yes Medical Necessity: Need Close Monitoring Due to Risk of Patient Decompensation, Risk of Complication if Not Cared For in Hospital - Plan Summary Plan Summary: Patient is improving. Workup for stroke like symptoms not yet complete, echocardiogram pending. Increase diltiazem today so we will watch heart rate and blood pressure overnight. Also awaiting therapeutic INR for safety she lives at home with her disabled .
[2017-07-17 16:29] LABS: INTERNATIONAL RATION (INR) 1.49; PROTHROMBIN TIME 18.8 SEC (11.4-15.4)
[2017-07-17] MEDS: CLOBETASOL PROPIONATE 0.05% CREAM 15 GM TP SCH (17:49)
[2017-07-17] MEDS: ATORVASTATIN CALCIUM 40 MG TABLET PO SCH (21:40)
[2017-07-17] MEDS: DILTIAZEM HCL 180 MG CAPSULE.CR PO SCH (21:40)
[2017-07-17] MEDS: NORTRIPTYLINE HCL 25 MG CAPSULE PO SCH (21:41)
[2017-07-17] MEDS ORDERED: WARFARIN SODIUM 3 MG TABLET PO SCH (22:00)
[2017-07-18 05:20] LABS: INTERNATIONAL RATION (INR) 1.44; PROTHROMBIN TIME 18.3 SEC (11.4-15.4)
[2017-07-18] MEDS: LEVOTHYROXINE SODIUM 0.112 MG TABLET PO SCH (05:25)
[2017-07-18] MEDS: LANSOPRAZOLE 30 MG TAB.RAP.DR PO SCH ×2 (05:25→17:22)
[2017-07-18] MEDS: DONEPEZIL HCL 5 MG TABLET PO SCH (10:10)
[2017-07-18] MEDS: PRENATAL VITAMIN W DHA CAPSULE PO SCH (10:11)
[2017-07-18] MEDS: LACTOBACILLUS ACIDOPHILUS 250 MG TAB PO SCH ×2 (10:11→17:22)
[2017-07-18] MEDS: FOLIC ACID 1 MG TABLET PO SCH (10:11)
[2017-07-18] MEDS: DOCUSATE SODIUM 100 MG CAPSULE PO SCH ×2 (10:11→17:25)
[2017-07-18] MEDS: CARBAMAZEPINE 200 MG TABLET PO SCH ×2 (10:12→18:22)
[2017-07-18] MEDS: ASPIRIN 81 MG TABLET, ENT COATED PO SCH (10:12)
[2017-07-18] MEDS: PROPAFENONE HCL 150 MG TABLET PO SCH ×2 (10:12→21:16)
[2017-07-18] MEDS: DILTIAZEM HCL 180 MG CAPSULE.CR PO SCH (10:13)
[2017-07-18] MEDS: CHOLECALCIFEROL (D3) 1,000 UNIT TABLET PO SCH (10:13)
[2017-07-18] MEDS: CYANOCOBALAMIN (VITAMIN B-12) 1,000 MCG TABLET PO SCH (10:13)
[2017-07-18] MEDS: BUDESONIDE/FORMOTEROL 160-4.5 MCG 60 PUFF/6 GM MDI IH SCH ×2 (10:14→17:25)
[2017-07-18] MEDS: CLOBETASOL PROPIONATE 0.05% CREAM 15 GM TP SCH (10:15)
[2017-07-18] MEDS: FONDAPARINUX SODIUM INJ 5 MG/0.4 ML DISP.SYRIN SUBCUT SCH (10:15)
[2017-07-18] MEDS: INSULIN NPH (ISOPHANE), HUMAN 100 UNIT/ML 3 ML SUBCUT SCH ×2 (10:18→12:25)
[2017-07-18] MEDS: INSULIN GLARGINE,HUM.REC.ANLOG 300 UNIT/3 ML INSULN.PEN SUBCUT SCH (10:18)
[2017-07-18] MEDS ORDERED: WARFARIN SODIUM 3 MG TABLET PO SCH (11:41)
[2017-07-18] MEDS ORDERED: DILTIAZEM HCL 180 MG CAPSULE.CR PO SCH (11:49)
[2017-07-18] MEDS ORDERED: GLUCAGON,HUMAN RECOMB 1 MG INJ IM PRN ×3 (12:30→12:37)
[2017-07-18] MEDS ORDERED: DEXTROSE 50%-WATER 25 GM/50 ML DISP.SYRIN IV PRN ×6 (12:30→12:37)
[2017-07-18] MEDS ORDERED: DEXTROSE 40% GEL 15 GM TUBE PO PRN ×4 (12:34→12:37)
[2017-07-18] MEDS ORDERED: INSULIN REG, HUMAN 100 UNIT/ML 3 ML VIAL (PYX) SUBCUT PRN (12:34)
[2017-07-18] MEDS: INSULIN LISPRO 100 UNIT/ML 3 ML VIAL SUBCUT PRN ×2 (17:23→21:51)
[2017-07-18] MEDS: INSULIN LISPRO 100 UNIT/ML 3 ML VIAL SUBCUT SCH (17:23)
--- NOTE | 2017-07-18 17:32 | PDOC PROGRESS REPORT ---
Subjective Progress Note for:: 07/18/17 Subjective:: Patient is not having any chest pain or difficulty breathing. She does still feel like she is having a hard time getting her words out. She is able to ambulate without difficulty. No feeling of palpitations. Eating and drinking without too much difficulty. No bleeding or bruising. She tells me that her home dose of warfarin is 7.5 mg nightly. She did not know that she was subtherapeutic when she came into the hospital. We talked about her symptoms possibly being related to a subtherapeutic INR in the setting of A. fib. Reason For Visit: APHASIA DM, ANXIETY Physical Exam Vital Signs: Temp Pulse Resp BP Pulse Ox 97.6 F 107 H 18 130/67 H 96 07/18/17 07:47 07/18/17 14:00 07/18/17 07:47 07/18/17 07:47 07/18/17 07:47 Intake & Output 07/17/17 07/18/17 07/19/17 06:59 06:59 06:59 Intake Total 1400 1755 458 Output Total 200 Balance 1400 1555 458 Weight 95.1 kg 93.8 kg General appearance: PRESENT: no acute distress, cooperative, obese Head exam: PRESENT: atraumatic, normocephalic Eye exam: ABSENT: conjunctival injection, scleral icterus Mouth exam: PRESENT: moist, tongue midline Respiratory exam: PRESENT: clear to auscultation chelo, unlabored. ABSENT: rales , rhonchi, wheezes Cardiovascular exam: PRESENT: irregular rhythm, tachycardia. ABSENT: systolic murmur Pulses: PRESENT: normal radial pulses GI/Abdominal exam: PRESENT: normal bowel sounds, soft. ABSENT: distended, guarding, tenderness Extremities exam: ABSENT: pedal edema, tenderness Neurological exam: PRESENT: alert, awake, oriented to person, oriented to place , oriented to situation, other - Patient is speaking clearly and intelligibly, intermittently taking a few seconds to find her words. Psychiatric exam: PRESENT: appropriate affect. ABSENT: anxious Skin exam: PRESENT: dry, intact, warm Results Laboratory Results: 07/17/17 04:40 Impressions: Head CT 07/15/17 19:10 IMPRESSION: MILD CHRONIC MICROVASCULAR ISCHEMIA. NO ACUTE IMAGING FINDINGS IN THE BRAIN. EVIDENCE OF ACUTE STROKE: NO. Chest X-Ray 05/30/18 19:11 IMPRESSION: NO ACUTE RADIOGRAPHIC FINDING IN THE CHEST. Carotid Doppler Study 07/16/17 00:00 IMPRESSION: NO HEMODYNAMICALLY SIGNIFICANT STENOSIS. Assessment & Plan - Diagnosis (1) Atrial fibrillation with RVR Is this a current diagnosis for this admission?: Yes Plan: Patient states that her home diltiazem dose is 100 mg p.o. twice daily. Here she was not well controlled on 120 or 180 mg p.o. twice daily. I have increased her dose to 240 mg p.o. twice daily. I think that her blood pressure can tolerate this. I have discussed it with her nurse and we will monitor her closely. For her anticoagulation she will continue on warfarin and I have increased her dose to 7.5 mg nightly. Her INR had been slowly dropping over the past few days. Will check INR again in the morning. On admission she was started on a fondaparinux bridge and that will continue, I have discussed the appropriateness of this in the setting of A. fib anticoagulation with pharmacy and I was given the information by our pharmacist that this would be an appropriate bridge medication. (2) Stroke-like symptoms Is this a current diagnosis for this admission?: Yes Plan: Patient discussed that she is still having a little bit of difficulty getting her words out. We discussed subtherapeutic INR in A. fib as a possible etiology of her symptoms. We are working on full anticoagulation with warfarin. Carotid duplex did not show stenosis. CT head negative. Patient has a pacemaker and cannot get an MRI. She told me specifically that her pacemaker is not MRI compatible though she does not have a card describing the perinatal breastfeeding assistant and type of pacemaker. Echocardiogram pending. (3) Diabetes type 2, uncontrolled Is this a current diagnosis for this admission?: Yes Plan: Blood glucose has been labile. She was 72 this morning and is 300 this afternoon. I will decrease her evening glargine dose from 25-22 units to avoid a.m. hypoglycemia. I have increased her meal lispro dose to be added to the sliding scale. (4) Altered mental status Qualifiers: Altered mental status type: unspecified Qualified Code(s): R41.82 - Altered mental status, unspecified Is this a current diagnosis for this admission?: Yes Plan: Resolved. Possibly related to TIA. (5) Dementia Is this a current diagnosis for this admission?: Yes Plan: This seems mild. We will continue to monitor for safety. - Time Time Spent with patient: 25-34 minutes Medications reviewed and adjusted accordingly: Yes Anticipated discharge: Home - Inpatient Certification Based on my medical assessment, after consideration of the patient's comorbidities, presenting symptoms, or acuity I expect that the services needed warrant INPATIENT care.: Yes I certify that my determination is in accordance with my understanding of Medicare's requirements for reasonable and necessary INPATIENT services [42 CFR 412.3e].: Yes Medical Necessity: Need For Continuous Telemetry Monitoring
[2017-07-18] MEDS: DILTIAZEM HCL 240 MG CAPSULE.CR PO SCH (21:16)
[2017-07-18] MEDS: ATORVASTATIN CALCIUM 40 MG TABLET PO SCH (21:16)
[2017-07-18] MEDS: WARFARIN SODIUM 7.5 MG TABLET PO SCH (21:16)
[2017-07-18] MEDS: NORTRIPTYLINE HCL 25 MG CAPSULE PO SCH (21:16)
[2017-07-19] MEDS ORDERED: METOPROLOL TARTRATE PF/INJ 5 MG/5 ML SDV IV ONE ×2 (00:50→01:00)
[2017-07-19 05:04] LABS: HEMATOCRIT 34.3 % (36.0-47.0); HEMOGLOBIN 11.7 g/dL (12.0-15.5); MEAN CORPUSCULAR HEMOGLOBIN 31.5 pg (27.0-33.4); MEAN CORPUSCULAR HGB CONC 34.2 g/dL (32.0-36.0); MEAN CORPUSCULAR VOLUME 92 fl (80-97); PLATELET COUNT 164 10^3/uL (150-450); RED BLOOD COUNT 3.72 10^6/uL (3.72-5.28); RED CELL DISTRIBUTION WIDTH 13.8 % (11.5-14.0); WHITE BLOOD COUNT 7.4 10^3/uL (4.0-10.5)
[2017-07-19 05:08] LABS: INTERNATIONAL RATION (INR) 1.56; PROTHROMBIN TIME 19.4 SEC (11.4-15.4)
[2017-07-19] MEDS: LANSOPRAZOLE 30 MG TAB.RAP.DR PO SCH ×2 (05:22→17:17)
[2017-07-19] MEDS: LEVOTHYROXINE SODIUM 0.112 MG TABLET PO SCH (05:22)
[2017-07-19 05:29] LABS: ANION GAP 12 (5-19); BLOOD UREA NITROGEN 22 mg/dL (7-20); CALCIUM 9.5 mg/dL (8.4-10.2); CARBON DIOXIDE 27 mmol/L (22-30); CHLORIDE 100 mmol/L (98-107); POTASSIUM 4.4 mmol/L (3.6-5.0); SODIUM 139.1 mmol/L (137-145)
[2017-07-19 05:31] LABS: GLUCOSE 274 mg/dL (75-110)
--- NOTE | 2017-07-19 08:24 | EKG REPORT ---
SEVERITY:- ABNORMAL ECG - ATRIAL FIBRILLATION BORDERLINE PROLONGED QT INTERVAL : Confirmed by: Jairon Sullivan 19-Jul-2017 08:23:34
[2017-07-19] MEDS: INSULIN GLARGINE,HUM.REC.ANLOG 300 UNIT/3 ML INSULN.PEN SUBCUT SCH (08:56)
[2017-07-19] MEDS: FONDAPARINUX SODIUM INJ 5 MG/0.4 ML DISP.SYRIN SUBCUT SCH (08:56)
[2017-07-19] MEDS: PRENATAL VITAMIN W DHA CAPSULE PO SCH (08:57)
[2017-07-19] MEDS: BUDESONIDE/FORMOTEROL 160-4.5 MCG 60 PUFF/6 GM MDI IH SCH ×2 (08:57→17:16)
[2017-07-19] MEDS: DILTIAZEM HCL 240 MG CAPSULE.CR PO SCH (08:57)
[2017-07-19] MEDS: INSULIN LISPRO 100 UNIT/ML 3 ML VIAL SUBCUT PRN ×4 (08:57→21:12)
[2017-07-19] MEDS: INSULIN LISPRO 100 UNIT/ML 3 ML VIAL SUBCUT SCH ×3 (08:57→17:16)
[2017-07-19] MEDS: CYANOCOBALAMIN (VITAMIN B-12) 1,000 MCG TABLET PO SCH (08:58)
[2017-07-19] MEDS: CARBAMAZEPINE 200 MG TABLET PO SCH ×2 (08:58→21:12)
[2017-07-19] MEDS: DOCUSATE SODIUM 100 MG CAPSULE PO SCH ×2 (08:58→17:10)
[2017-07-19] MEDS: DONEPEZIL HCL 5 MG TABLET PO SCH (08:59)
[2017-07-19] MEDS: CHOLECALCIFEROL (D3) 1,000 UNIT TABLET PO SCH (08:59)
[2017-07-19] MEDS: FOLIC ACID 1 MG TABLET PO SCH (08:59)
[2017-07-19] MEDS: ASPIRIN 81 MG TABLET, ENT COATED PO SCH (08:59)
[2017-07-19] MEDS: PROPAFENONE HCL 150 MG TABLET PO SCH (09:00)
[2017-07-19] MEDS: LACTOBACILLUS ACIDOPHILUS 250 MG TAB PO SCH ×2 (09:00→17:17)
[2017-07-19] MEDS: CLOBETASOL PROPIONATE 0.05% CREAM 15 GM TP SCH (09:00)
[2017-07-19] MEDS ORDERED: CEFTRIAXONE 1 GM/D5W RTU 1 GM/50 ML RTUPB IV SCH (13:00)
[2017-07-19] MEDS ORDERED: METOPROLOL TARTRATE 25 MG TABLET PO ONE (13:30)
[2017-07-19] MEDS ORDERED: CEFTRIAXONE SODIUM 1,000 MG in DEXTROSE 5%-WATER 50 ML IV SCH (14:00)
[2017-07-19] MEDS ORDERED: LORAZEPAM 0.5 MG TABLET PO PRN (14:50)
[2017-07-19] MEDS ORDERED: GUAIFENESIN 600 MG TABLET.SA PO ONE (16:00)
[2017-07-19] MEDS: NORTRIPTYLINE HCL 25 MG CAPSULE PO SCH (21:12)
[2017-07-19] MEDS: DILTIAZEM HCL 180 MG CAPSULE.CR PO SCH (21:12)
[2017-07-19] MEDS: METOPROLOL TARTRATE 25 MG TABLET PO SCH (21:12)
[2017-07-19] MEDS: ATORVASTATIN CALCIUM 40 MG TABLET PO SCH (21:12)
[2017-07-19] MEDS: WARFARIN SODIUM 7.5 MG TABLET PO SCH (21:12)
[2017-07-19] MEDS: GUAIFENESIN 600 MG TABLET.SA PO SCH (21:12)
[2017-07-20] MEDS: LANSOPRAZOLE 30 MG TAB.RAP.DR PO SCH ×2 (05:26→17:22)
[2017-07-20] MEDS: LEVOTHYROXINE SODIUM 0.112 MG TABLET PO SCH (05:26)
[2017-07-20 06:35] LABS: HEMATOCRIT 37.4 % (36.0-47.0); HEMOGLOBIN 12.8 g/dL (12.0-15.5); MEAN CORPUSCULAR HEMOGLOBIN 31.1 pg (27.0-33.4); MEAN CORPUSCULAR HGB CONC 34.1 g/dL (32.0-36.0); MEAN CORPUSCULAR VOLUME 91 fl (80-97); PLATELET COUNT 182 10^3/uL (150-450); RED CELL DISTRIBUTION WIDTH 14.1 % (11.5-14.0); WHITE BLOOD COUNT 8.3 10^3/uL (4.0-10.5)
[2017-07-20 06:42] LABS: PROTHROMBIN TIME 21.8 SEC (11.4-15.4)
[2017-07-20 06:59] LABS: ANION GAP 13 (5-19); BLOOD UREA NITROGEN 26 mg/dL (7-20); CALCIUM 9.8 mg/dL (8.4-10.2); CARBON DIOXIDE 26 mmol/L (22-30); CHLORIDE 100 mmol/L (98-107); GLUCOSE 271 mg/dL (75-110); POTASSIUM 4.7 mmol/L (3.6-5.0); SODIUM 139.3 mmol/L (137-145)
[2017-07-20] MEDS: INSULIN GLARGINE,HUM.REC.ANLOG 300 UNIT/3 ML INSULN.PEN SUBCUT SCH (08:06)
[2017-07-20] MEDS: INSULIN LISPRO 100 UNIT/ML 3 ML VIAL SUBCUT SCH ×3 (08:07→17:23)
[2017-07-20] MEDS: INSULIN LISPRO 100 UNIT/ML 3 ML VIAL SUBCUT PRN ×2 (08:08→11:43)
[2017-07-20] MEDS: ASPIRIN 81 MG TABLET, ENT COATED PO SCH (09:05)
[2017-07-20] MEDS: BUDESONIDE/FORMOTEROL 160-4.5 MCG 60 PUFF/6 GM MDI IH SCH ×2 (09:05→17:30)
[2017-07-20] MEDS: GUAIFENESIN 600 MG TABLET.SA PO SCH ×2 (09:05→21:12)
[2017-07-20] MEDS: DONEPEZIL HCL 5 MG TABLET PO SCH (09:06)
[2017-07-20] MEDS: LACTOBACILLUS ACIDOPHILUS 250 MG TAB PO SCH ×2 (09:06→17:22)
[2017-07-20] MEDS: PRENATAL VITAMIN W DHA CAPSULE PO SCH (09:06)
[2017-07-20] MEDS: CHOLECALCIFEROL (D3) 1,000 UNIT TABLET PO SCH (09:06)
[2017-07-20] MEDS: CYANOCOBALAMIN (VITAMIN B-12) 1,000 MCG TABLET PO SCH (09:06)
[2017-07-20] MEDS: DOCUSATE SODIUM 100 MG CAPSULE PO SCH ×2 (09:07→17:22)
[2017-07-20] MEDS: FOLIC ACID 1 MG TABLET PO SCH (09:07)
[2017-07-20] MEDS: CARBAMAZEPINE 200 MG TABLET PO SCH ×2 (09:07→21:11)
[2017-07-20] MEDS: DILTIAZEM HCL 180 MG CAPSULE.CR PO SCH ×2 (09:07→21:12)
[2017-07-20] MEDS: FONDAPARINUX SODIUM INJ 5 MG/0.4 ML DISP.SYRIN SUBCUT SCH (09:08)
[2017-07-20] MEDS: METOPROLOL TARTRATE 25 MG TABLET PO SCH ×2 (09:08→21:11)
[2017-07-20] MEDS: CLOBETASOL PROPIONATE 0.05% CREAM 15 GM TP SCH (11:29)
[2017-07-20 15:12] LABS: ARTERIAL BLOOD BASE EXCESS 2.6 mmol/L; ARTERIAL BLOOD HCO3 26.8 mmol/L (20-26); ARTERIAL BLOOD O2 SATURATION 97.6 % (94-98); ARTERIAL BLOOD PCO2 39.8 mmHg (35-45); ARTERIAL BLOOD PH 7.45 (7.35-7.45); ARTERIAL BLOOD PO2 97.3 mmHg (80-100)
[2017-07-20 15:17] LABS: ARTERIAL BLOOD FIO2 3L
[2017-07-20 15:44] LABS: INTERNATIONAL RATION (INR) 1.91; PROTHROMBIN TIME 22.8 SEC (11.4-15.4)
--- NOTE | 2017-07-20 16:12 | PDOC PROGRESS REPORT ---
Subjective Progress Note for:: 07/20/17 Subjective:: Patient is feeling very sleepy today. She is willing to stay in the hospital if she needs to. She is not as talkative today she was yesterday. She states she has been sleeping a lot. Her appetite is poor. She is feeling weak. No chest pain or difficulty breathing. She would like for me to call her daughter. Reason For Visit: A. fib with RVR, subtherapeutic INR, urinary tract infection, weakness and confusion Physical Exam Vital Signs: Temp Pulse Resp BP Pulse Ox 98.1 F 117 H 20 113/86 H 100 07/20/17 16:01 07/20/17 16:01 07/20/17 16:01 07/20/17 16:01 07/20/17 16:01 Intake & Output 07/19/17 07/20/17 07/21/17 06:59 06:59 06:59 Intake Total 1260 1722 Output Total 100 400 Balance 1160 1322 Weight 94.8 kg 94.5 kg General appearance: PRESENT: cooperative, disheveled, mild distress Eye exam: ABSENT: conjunctival injection, scleral icterus Mouth exam: PRESENT: moist, tongue midline Respiratory exam: PRESENT: clear to auscultation chelo, unlabored. ABSENT: rales , rhonchi, wheezes Cardiovascular exam: PRESENT: RRR. ABSENT: systolic murmur GI/Abdominal exam: PRESENT: normal bowel sounds, soft. ABSENT: distended, guarding, tenderness Neurological exam: PRESENT: altered, oriented to person, oriented to place, oriented to situation. ABSENT: normal gait Psychiatric exam: PRESENT: anxious Skin exam: PRESENT: dry, warm Results Laboratory Results: 07/20/17 05:43 07/20/17 05:43 07/20/17 07/20/17 07/20/17 05:43 05:43 14:55 WBC 8.3 RBC 4.10 Hgb 12.8 Hct 37.4 MCV 91 MCH 31.1 MCHC 34.1 RDW 14.1 H Plt Count 182 Carbonic Acid 1.20 HCO3/H2CO3 Ratio 22:1 ABG pH 7.45 ABG pCO2 39.8 ABG pO2 97.3 ABG HCO3 26.8 H ABG O2 Saturation 97.6 ABG Base Excess 2.6 FiO2 3L Sodium 139.3 Potassium 4.7 Chloride 100 Carbon Dioxide 26 Anion Gap 13 BUN 26 H Creatinine 0.73 Est GFR ( Amer) > 60 Est GFR (Non-Af Amer) > 60 Glucose 271 H Calcium 9.8 Impressions: Head CT 07/15/17 19:10 IMPRESSION: MILD CHRONIC MICROVASCULAR ISCHEMIA. NO ACUTE IMAGING FINDINGS IN THE BRAIN. EVIDENCE OF ACUTE STROKE: NO. Chest X-Ray 07/15/17 19:11 IMPRESSION: NO ACUTE RADIOGRAPHIC FINDING IN THE CHEST. Carotid Doppler Study 07/16/17 00:00 IMPRESSION: NO HEMODYNAMICALLY SIGNIFICANT STENOSIS. Assessment & Plan - Diagnosis (1) Atrial fibrillation with RVR Is this a current diagnosis for this admission?: Yes Plan: Yesterday I stopped her Rythmol. I started her on metoprolol 25 mg every 12 hours. I have down titrated her diltiazem from 240 twice daily to 120 twice daily. Her rate is now well controlled. Pressure is stable. Her INR is up to 1.9 on her regular home dose of Coumadin 7.5 mg nightly. Will recheck INR in the morning. She is on a fondaparinux bridge. (2) Stroke-like symptoms Is this a current diagnosis for this admission?: Yes Plan: Patient came in with strokelike symptoms, a aphasia, subtherapeutic INR in the setting of A. fib. It is possible she was having TIAs. She is almost therapeutic with her INR and is anticoagulated with fondaparinux. Secondary to excessive somnolence and some confusion today CT scan of the head is being repeated. ABG is pending. Carotids were negative several days ago and her echocardiogram result is pending. (3) Diabetes type 2, uncontrolled Is this a current diagnosis for this admission?: Yes Plan: Blood glucose has been better controlled over the past day or so. Will continue to up titrate insulin as indicated for good control. Continue diabetic diet. (4) Altered mental status Qualifiers: Altered mental status type: unspecified Qualified Code(s): R41.82 - Altered mental status, unspecified Is this a current diagnosis for this admission?: Yes Plan: Not entirely clear etiology though it could be that the patient has a healthcare associated delirium with the diagnosis of baseline dementia. I have spoken with her daughter about the possibilities. We are checking CT scan of the head, ABG. She did have Ativan ordered yesterday for anxiety but per her nurse she did not receive any. I have ordered physical therapy so that we can assess her for safety with ambulation. Place fall precautions. (5) Dementia Is this a current diagnosis for this admission?: Yes Plan: When I mentioned dementia the patient's daughter told me that she did not have dementia. I told her that her mom was on Aricept and that is a medication for dementia, daughter was not aware of this. Please see altered mental status above. - Time Time Spent with patient: 35 or more minutes Medications reviewed and adjusted accordingly: Yes - Inpatient Certification Based on my medical assessment, after consideration of the patient's comorbidities, presenting symptoms, or acuity I expect that the services needed warrant INPATIENT care.: Yes I certify that my determination is in accordance with my understanding of Medicare's requirements for reasonable and necessary INPATIENT services [42 CFR 412.3e].: Yes Medical Necessity: Need for Neurological Checks, Risk of Complication if Not Cared For in Hospital
--- NOTE | 2017-07-20 16:28 | RADIOLOGY REPORT (SQ) ---
EXAM DESCRIPTION: CT HEAD WITHOUT COMPLETED DATE/TIME: 07/20/2017 4:15 pm REASON FOR STUDY: CHANGE IN MENTAL STATUS I48.2 CHRONIC ATRIAL FIBRILLATION COMPARISON: 07/15/2017 TECHNIQUE: Axial images acquired through the brain without intravenous contrast. Images reviewed wi th bone, brain and subdural windows. Additional sagittal and coronal reconstructions were generated. Images stored on PACS. All CT scanners at this facility use dose modulation, iterative reconstruction, and/or weight based d osing when appropriate to reduce radiation dose to as low as reasonably achievable (ALARA). [facility]: Dose Right [facility]: CareDose [facility]: Dose Right [facility]: Teradose 4D [facility]: Smart DramaFever RADIATION DOSE: CT Rad equipment meets quality standard of care and radiation dose reduction techniq ues were employed. CTDIvol: 48.5 mGy. DLP: 854 mGy-cm. mGy. LIMITATIONS: None. FINDINGS: VENTRICLES: The ventricles are slightly prominent. CEREBRUM: Mild cortical atrophy is present. No masses. No hemorrhage. No midline shift. No eviden ce for acute infarction. Few scattered areas of low density in the white matter most likely chronic s mall vessel ischemic changes. CEREBELLUM: No masses. No hemorrhage. No alteration of density. No evidence for acute infarction. EXTRAAXIAL SPACES: No fluid collections. No masses. ORBITS AND GLOBE: No intra- or extraconal masses. Normal contour of globe without masses. CALVARIUM: No fracture. PARANASAL SINUSES: No fluid or mucosal thickening. SOFT TISSUES: No mass or hematoma. OTHER: No other significant finding. IMPRESSION: MILD CHRONIC MICROVASCULAR ISCHEMIA. NO ACUTE IMAGING FINDINGS IN THE BRAIN. EVIDENCE OF ACUTE STROKE: NO. COMMENT: Quality ID # [id number]: Final reports with documentation of one or more dose reduction techniques (e.g., Automated exposure control, adjustment of the mA and/or kV according to patient size, use of iterative reconstruction technique) TECHNICAL DOCUMENTATION: JOB ID: [id number] [employer]- All Rights Reserved Reading location - IP/workstation name: [email or web address]
[2017-07-20] MEDS: CEFUROXIME 250 MG TABLET PO SCH (17:22)
--- NOTE | 2017-07-20 18:04 | XCELERA REPORT ---
[address] [address] Transthoracic Echocardiogram Report Name: CLARENCE MOLINA Age: 81 yrs Gender: Female : 1935 Patient Status: Inpatient Patient Location: [address] [place] [address] Study Date: 07/20/2017 10:21 AM Procedure: A complete two-dimensional transthoracic echocardiogram was performed (2D, M-mode, spectral and color flow Doppler). The study was technically adequate with some images being suboptimal in quality. Reason For Study: stroke like symptoms Ordering Physician: CHETNA RICO Performed By: Rosa Rdz Interpretation Summary The left ventricular ejection fraction is normal. LV diastolic function could not be adequately assessed. There is mild concentric left ventricular hypertrophy. The left ventricle is grossly normal size. Wall motion cannot be accurately commented on, but no definite regional wall motion abnormalities noted. The right ventricle is grossly normal size. The right ventricular systolic function is normal. The right atrium is normal in size The left atrium is mildly dilated. There is a trace to mild amount of mitral regurgitation There is no mitral valve stenosis. There is no aortic valve stenosis There is a trace amount of aortic regurgitation There is a mild amount of tricuspid regurgitation Right ventricular systolic pressure is at the upper limits of normal The aortic root is not well visualized but is probably normal size. The inferior vena cava appeared normal and decreased > 50% with respiration (RAP 5-10 mmHg) There is no pericardial effusion. No definite cardiac source of CVA/TIA noted on this particular trans- thoracic study. Consider TAMI if clinically indicated. May consider mobile cardiac telemetry monitoring (MCT) for ruling out transient AFIB. MMode/2D Measurements & Calculations RVDd: 3.3 cm LVIDd: 4.3 cm FS: 44.2 % Ao root diam: 2.4 cm IVSd: 1.4 cm LVIDs: 2.4 cm EDV(Teich): 83.2 ml Ao root area: 4.4 cm2 LVPWd: 1.3 cm ESV(Teich): 20.2 ml EF(Teich): 75.8 % LVOT diam: 1.7 cm LVOT area: 2.3 cm2 Doppler Measurements & Calculations Ao V2 max: LV V1 max PG: PA V2 max: TR max sarah: 137.4 cm/sec 2.8 mmHg 109.8 cm/sec 231.3 cm/sec Ao max PG: LV V1 max: PA max PG: TR max P.6 mmHg 83.4 cm/sec 4.9 mmHg 21.4 mmHg RUCHI(V,D): 1.4 cm2 Left Ventricle The left ventricle is grossly normal size. There is mild concentric left ventricular hypertrophy. The left ventricular ejection fraction is normal. LV diastolic function could not be adequately assessed. Wall motion cannot be accurately commented on, but no definite regional wall motion abnormalities noted. Right Ventricle The right ventricle is grossly normal size. There is normal right ventricular wall thickness. The right ventricular systolic function is normal. Atria The right atrium is normal in size. The left atrium is mildly dilated. Interarterial septum not well visualized and not well dopplered. Cannot comment on ASD/PFO presence. Mitral Valve There is mild mitral leaflet calcification. There is mild mitral annular calcification. There is no mitral valve stenosis. There is a trace to mild amount of mitral regurgitation. Aortic Valve The aortic valve is grossly normal. There is no aortic valve stenosis. There is a trace amount of aortic regurgitation. Tricuspid Valve The tricuspid valve is not well visualized secondary to technical limitations. There is no tricuspid stenosis. There is a mild amount of tricuspid regurgitation. Right ventricular systolic pressure is at the upper limits of normal. Pulmonic Valve The pulmonic valve is not well visualized. Great Vessels The aortic root is not well visualized but is probably normal size. The inferior vena cava appeared normal and decreased > 50% with respiration (RAP 5-10 mmHg). Effusions There is no pericardial effusion. Incidental Findings No definite cardiac source of CVA/TIA noted on this particular trans- thoracic study. Consider TAMI if clinically indicated. May consider mobile cardiac telemetry monitoring (MCT) for ruling out transient AFIB. : CHETNA RICO > Jairon Sullivan
[2017-07-20] MEDS ORDERED: DILTIAZEM HCL INJ 25 MG/5 ML VIAL IV ONE (18:45)
[2017-07-20] MEDS: WARFARIN SODIUM 7.5 MG TABLET PO SCH (21:11)
[2017-07-20] MEDS: ATORVASTATIN CALCIUM 40 MG TABLET PO SCH (21:12)
[2017-07-20] MEDS: NORTRIPTYLINE HCL 25 MG CAPSULE PO SCH (21:12)
[2017-07-20] MEDS ORDERED: DILTIAZEM HCL 120 MG CAP.SR.24H PO SCH ×2 (22:00)
[2017-07-20] MEDS ORDERED: DILTIAZEM HCL 120 MG CAP.SR.24H PO ONE (23:00)
[2017-07-21] MEDS ORDERED: METOPROLOL TARTRATE PF/INJ 5 MG/5 ML SDV IV ONE (01:30)
[2017-07-21] MEDS: LANSOPRAZOLE 30 MG TAB.RAP.DR PO SCH ×2 (05:58→17:14)
[2017-07-21] MEDS: LEVOTHYROXINE SODIUM 0.112 MG TABLET PO SCH (05:58)
[2017-07-21] MEDS: INSULIN LISPRO 100 UNIT/ML 3 ML VIAL SUBCUT SCH ×3 (07:53→17:21)
[2017-07-21] MEDS: INSULIN LISPRO 100 UNIT/ML 3 ML VIAL SUBCUT PRN ×4 (07:54→22:12)
[2017-07-21] MEDS: INSULIN GLARGINE,HUM.REC.ANLOG 300 UNIT/3 ML INSULN.PEN SUBCUT SCH (07:55)
[2017-07-21] MEDS: GUAIFENESIN 600 MG TABLET.SA PO SCH ×2 (09:23→21:58)
[2017-07-21] MEDS: METOPROLOL TARTRATE 25 MG TABLET PO SCH ×2 (09:26→21:54)
[2017-07-21] MEDS: CARBAMAZEPINE 200 MG TABLET PO SCH ×2 (09:26→21:51)
[2017-07-21] MEDS: CHOLECALCIFEROL (D3) 1,000 UNIT TABLET PO SCH (09:26)
[2017-07-21] MEDS: PRENATAL VITAMIN W DHA CAPSULE PO SCH (09:26)
[2017-07-21] MEDS: FOLIC ACID 1 MG TABLET PO SCH (09:27)
[2017-07-21] MEDS: CEFUROXIME 250 MG TABLET PO SCH ×2 (09:27→17:14)
[2017-07-21] MEDS: DOCUSATE SODIUM 100 MG CAPSULE PO SCH ×2 (09:27→17:14)
[2017-07-21] MEDS: LACTOBACILLUS ACIDOPHILUS 250 MG TAB PO SCH ×2 (09:27→17:30)
[2017-07-21] MEDS: ASPIRIN 81 MG TABLET, ENT COATED PO SCH (09:27)
[2017-07-21] MEDS: DILTIAZEM HCL 180 MG CAPSULE.CR PO SCH ×2 (09:27→21:53)
[2017-07-21] MEDS: CYANOCOBALAMIN (VITAMIN B-12) 1,000 MCG TABLET PO SCH (09:27)
[2017-07-21] MEDS: DONEPEZIL HCL 5 MG TABLET PO SCH (09:28)
[2017-07-21] MEDS: BUDESONIDE/FORMOTEROL 160-4.5 MCG 60 PUFF/6 GM MDI IH SCH ×2 (09:31→17:20)
[2017-07-21] MEDS: FONDAPARINUX SODIUM INJ 5 MG/0.4 ML DISP.SYRIN SUBCUT SCH (09:32)
[2017-07-21] MEDS: CLOBETASOL PROPIONATE 0.05% CREAM 15 GM TP SCH (09:32)
--- NOTE | 2017-07-21 14:00 | RADIOLOGY REPORT (SQ) ---
EXAM DESCRIPTION: CTA HEAD COMPLETED DATE/TIME: 07/21/2017 1:38 pm REASON FOR STUDY: worsen MS, slurred speech, r/o CVA, no MRI I48.2 CHRONIC ATRIAL FIBRILLATION COMPARISON: Noncontrast head CT dated 07/20/2017. TECHNIQUE: Post IV contrast scanning, thin section axial imaging through the brain to evaluate the a rterial structures. Source and MIP images are saved and reviewed on PACS. Advanced 3D imaging as volume-rendering, MIPs, SSD performed? yes All CT scanners at this facility use dose modulation, iterative reconstruction, and/or weight based d osing when appropriate to reduce radiation dose to as low as reasonably achievable (ALARA). [facility]: Dose Right [facility]: CareDose [facility]: Dose Right [facility]: Teradose 4D [facility]: [employer] Media CONTRAST TYPE AND DOSE: contrast/concentration: Isovue 370.00 mg/ml; Total Contrast Delivered: 80.0 ml; Total Saline Delivered: 75.0 ml RENAL FUNCTION: Creatinine 0.73. LIMITATIONS: None. FINDINGS: VENTRICLES: Normal size and contour. CEREBRUM: No masses. No hemorrhage. No midline shift. A few areas of low density in the white matter most likely due to chronic micro-vascular ischemic change. No evidence for acute infarction. No abnor mal enhancement. CEREBELLUM: No masses. No hemorrhage. No alteration of density. No evidence for acute infarction. EXTRAAXIAL SPACES: Mild age-related involutional change. No fluid collections. No masses. ORBITS AND GLOBE: No intra- or extraconal masses. Normal contour of globe without masses. CALVARIUM: No fracture. PARANASAL SINUSES: No fluid or mucosal thickening. SOFT TISSUES: No mass or hematoma. OTHER: No other significant finding. [place]: The anterior, middle, posterior cerebral arteries are all patent. No evidence of a neurysm or focal stenosis. POSTERIOR CIRCULATION: The distal vertebral arteries are patent as is the basilar artery. No aneurysm . OTHER: No other significant finding. IMPRESSION: 1. STABLE MILD CHRONIC MICROVASCULAR ISCHEMIC CHANGES. NO ACUTE FINDINGS. NO ENHANCING LESIONS. 2. NO CTA EVIDENCE OF STENOSIS OR ANEURYSM OF THE [place]. TECHNICAL DOCUMENTATION: JOB ID: [id number] Quality ID # [id number]: Final reports with documentation of one or more dose reduction techniques (e.g., Au tomated exposure control, adjustment of the mA and/or kV according to patient size, use of iterative reconstruction technique) 2010 [employer]- All Rights Reserved Reading location - IP/workstation name: [email or web address]
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
[2017-07-21] MEDS ORDERED: INSULIN GLARGINE,HUM.REC.ANLOG 300 UNIT/3 ML INSULN.PEN SUBCUT SCH (14:15)
[2017-07-21] MEDS ORDERED: INSULIN GLARGINE,HUM.REC.ANLOG 300 UNIT/3 ML INSULN.PEN SUBCUT ONE (18:00)
[2017-07-21] MEDS: ATORVASTATIN CALCIUM 40 MG TABLET PO SCH (21:51)
[2017-07-21] MEDS: NORTRIPTYLINE HCL 25 MG CAPSULE PO SCH (21:52)
[2017-07-21] MEDS: WARFARIN SODIUM 7.5 MG TABLET PO SCH (21:55)
[2017-07-22 05:02] LABS: HEMATOCRIT 36.3 % (36.0-47.0); HEMOGLOBIN 12.2 g/dL (12.0-15.5); MEAN CORPUSCULAR HGB CONC 33.8 g/dL (32.0-36.0); MEAN CORPUSCULAR VOLUME 92 fl (80-97); PLATELET COUNT 191 10^3/uL (150-450); RED BLOOD COUNT 3.94 10^6/uL (3.72-5.28); RED CELL DISTRIBUTION WIDTH 13.8 % (11.5-14.0)
[2017-07-22 05:07] LABS: INTERNATIONAL RATION (INR) 2.12; PROTHROMBIN TIME 24.8 SEC (11.4-15.4)
[2017-07-22] MEDS: LANSOPRAZOLE 30 MG TAB.RAP.DR PO SCH ×2 (05:55→16:19)
[2017-07-22] MEDS: LEVOTHYROXINE SODIUM 0.112 MG TABLET PO SCH (05:55)
[2017-07-22] MEDS: INSULIN GLARGINE,HUM.REC.ANLOG 300 UNIT/3 ML INSULN.PEN SUBCUT SCH (07:28)
[2017-07-22] MEDS: INSULIN LISPRO 100 UNIT/ML 3 ML VIAL SUBCUT PRN ×4 (07:28→23:08)
[2017-07-22] MEDS: INSULIN LISPRO 100 UNIT/ML 3 ML VIAL SUBCUT SCH ×3 (07:29→16:20)
[2017-07-22] MEDS: METOPROLOL TARTRATE 25 MG TABLET PO SCH (09:16)
[2017-07-22] MEDS: DONEPEZIL HCL 5 MG TABLET PO SCH (09:17)
[2017-07-22] MEDS: PRENATAL VITAMIN W DHA CAPSULE PO SCH (09:17)
[2017-07-22] MEDS: DILTIAZEM HCL 180 MG CAPSULE.CR PO SCH ×2 (09:17→23:07)
[2017-07-22] MEDS: CARBAMAZEPINE 200 MG TABLET PO SCH (09:17)
[2017-07-22] MEDS: DOCUSATE SODIUM 100 MG CAPSULE PO SCH ×2 (09:17→17:47)
[2017-07-22] MEDS: CHOLECALCIFEROL (D3) 1,000 UNIT TABLET PO SCH (09:18)
[2017-07-22] MEDS: FOLIC ACID 1 MG TABLET PO SCH (09:18)
[2017-07-22] MEDS: CYANOCOBALAMIN (VITAMIN B-12) 1,000 MCG TABLET PO SCH (09:18)
[2017-07-22] MEDS: CEFUROXIME 250 MG TABLET PO SCH (09:18)
[2017-07-22] MEDS: ASPIRIN 81 MG TABLET, ENT COATED PO SCH (09:18)
[2017-07-22] MEDS: GUAIFENESIN 600 MG TABLET.SA PO SCH (09:18)
[2017-07-22] MEDS: BUDESONIDE/FORMOTEROL 160-4.5 MCG 60 PUFF/6 GM MDI IH SCH ×2 (09:23→17:47)
[2017-07-22] MEDS: LACTOBACILLUS ACIDOPHILUS 250 MG TAB PO SCH ×2 (09:23→17:47)
[2017-07-22] MEDS: FONDAPARINUX SODIUM INJ 5 MG/0.4 ML DISP.SYRIN SUBCUT SCH (09:31)
[2017-07-22] MEDS: CLOBETASOL PROPIONATE 0.05% CREAM 15 GM TP SCH (09:33)
--- NOTE | 2017-07-22 12:38 | PDOC PROGRESS REPORT ---
Subjective Progress Note for:: 07/22/17 Subjective:: Patient has been getting progressively less arousable over the last 24 or so hours. When I talked to her this morning she was clearly somnolent, but able to answer some questions. I was called back this afternoon for decreasing level of consciousness. She is lying in bed, no acute distress, will not reliably follow commands. Intermittently moves all 4 extremities. Unintelligible mumbled speech Reason For Visit: APHASIA DM, ANXIETY Physical Exam Vital Signs: Temp Pulse Resp BP Pulse Ox 97.3 F 99 17 115/79 95 07/22/17 11:47 07/22/17 11:47 07/22/17 11:47 07/22/17 11:47 07/22/17 11:47 Intake & Output 07/21/17 07/22/17 07/23/17 05:59 05:59 05:59 Intake Total 1015 1315 205 Output Total 800 Balance 215 1315 205 Weight 205 lb 0.478 oz 206 lb 2.115 oz General appearance: PRESENT: no acute distress, obese Eye exam: PRESENT: PERRLA. ABSENT: nystagmus Respiratory exam: PRESENT: clear to auscultation chelo Cardiovascular exam: PRESENT: other - Irregularly irregular and tach cardiac GI/Abdominal exam: PRESENT: soft Extremities exam: PRESENT: other - No edema. Extremities are cool. She has some mottling of the knees. Neurological exam: PRESENT: other - Limited exam. Appears to respond to noxious stimuli on all 4 extremities.. ABSENT: alert Skin exam: PRESENT: dry, warm Results Laboratory Results: 07/22/17 04:40 07/20/17 05:43 07/22/17 04:40 WBC 10.0 RBC 3.94 Hgb 12.2 Hct 36.3 MCV 92 MCH 31.0 MCHC 33.8 RDW 13.8 Plt Count 191 07/17/17 23:30 Clean Catch Midstream Urine Culture - Final Proteus Mirabilis Enterococcus Faecalis(Group D) Impressions: Chest X-Ray 07/15/17 19:11 IMPRESSION: NO ACUTE RADIOGRAPHIC FINDING IN THE CHEST. Carotid Doppler Study 07/16/17 00:00 IMPRESSION: NO HEMODYNAMICALLY SIGNIFICANT STENOSIS. Head CT 07/20/17 00:00 IMPRESSION: MILD CHRONIC MICROVASCULAR ISCHEMIA. NO ACUTE IMAGING FINDINGS IN THE BRAIN. EVIDENCE OF ACUTE STROKE: NO. Head CTA 07/21/17 00:00 IMPRESSION: 1. STABLE MILD CHRONIC MICROVASCULAR ISCHEMIC CHANGES. NO ACUTE FINDINGS. NO ENHANCING LESIONS. 2. NO CTA EVIDENCE OF STENOSIS OR ANEURYSM OF THE [place]. Assessment & Plan - Diagnosis (1) Acute encephalopathy Is this a current diagnosis for this admission?: Yes Plan: Unclear etiology. Appears to wax and wane. Reviewing the chart it looks like she was very confused and minimally arousable on presentation, became more arousable and was ambulatory with assistance, and has now become unarousable again. Laboratory data is unremarkable. Neurologic exam is nonfocal, she just appears globally weak. She is not gotten any new medications that would cause sedation. Her Tegretol and Pamelor are long-standing medications. I will check a Tegretol level. Check an ABG. 2 different CTs of her head been nondiagnostic, and we cannot get an MRI because of her pacemaker. (2) Atrial fibrillation with RVR Is this a current diagnosis for this admission?: Yes Plan: Current medications are not controlling her rate. I will get a cardiology consultation. (3) Dementia Qualifiers: Dementia type: Alzheimer's disease Is this a current diagnosis for this admission?: Yes Plan: Presumptive Alzheimer's. On Aricept at baseline. (4) Stroke-like symptoms Is this a current diagnosis for this admission?: Yes
[2017-07-22 12:57] LABS: ARTERIAL BLOOD BASE EXCESS 2.2 mmol/L; ARTERIAL BLOOD H2CO3 1.22 mmol/L (1.05-1.35); ARTERIAL BLOOD HCO3 26.6 mmol/L (20-26); ARTERIAL BLOOD PCO2 40.5 mmHg (35-45); ARTERIAL BLOOD PH 7.44 (7.35-7.45); ARTERIAL BLOOD PO2 78.6 mmHg (80-100); ARTERIAL BLOOD TOTAL CO2 27.8 mmol/L (21-25)
[2017-07-22 13:00] LABS: ARTERIAL BLOOD FIO2 3L
[2017-07-22] MEDS ORDERED: IPRATROPIUM/ALBUTEROL 0.5-2.5 MG/3 ML AMPUL NEB PRN (17:01)
--- NOTE | 2017-07-22 20:21 | PDOC CONSULTATION ---
Consultation Consult Date: 07/22/17 Attending physician:: FELISHA RENTERIA History of Present Illness Admission Date/PCP: 07/16/17 09:45 BLAISE RAY MD Patient complains of: Fatigue, tiredness and difficulty with speech History of Present Illness: CLARENCE MOLINA is a 81 year old female with an extensive past medical history of atrial fibrillation, obstructive sleep apnea, obesity, diabetes, chronic pain , bipolar, polymyalgia rheumatica and GERD. She presents with 1 week of altered mental status described as intermittent confusion, word finding difficulty and slurred speech. Each episode has resolved spontaneously to baseline without intervention. She presents to her primary care provider Dr. Ottoniel Ortiz and is found to be in A. fib with RVR in the 120s. She is referred to the emergency room for evaluation. She started on IV Cardizem and receives flecainide resulting in a heart rate in 80s. She denies chest pain, headache, nausea vomiting, confusion or recent change in medications. Patient describes exceptional social stressor as her debilitated has been discharged from retirement to home today. Workup is remarkable for A. fib with RVR and a subtherapeutic INR, she is referred to the hospitalist for admission. Patient was referred to me for further evaluation for atrial fibrillation. It seems patient was on some antiarrhythmic therapy which were subsequently discontinued during this admission. It seems antiarrhythmic she was on was not working for her. I was asked to see if we should restart on any antiarrhythmic. Patient has a backup pacemaker. Patient has history of atrial fibrillation on chronic Coumadin therapy. Patient has been noted to be confused and difficulty with her speech. Her recent presentation is suggestive of possible stroke but CT scan of the brain was negative. Patient cannot have a brain MRI due to pacemaker being present. Past Medical History Cardiac Medical History: Reports: Atrial Fibrillation, Hyperlipidema, Hypertension Denies: Myocardial Infarction Pulmonary Medical History: Reports: Bronchitis - 1974, Pneumonia - as a child Denies: Asthma, Chronic Obstructive Pulmonary Disease (COPD) Neurological Medical History: Denies: Seizures Endocrine Medical History: Reports: Diabetes Mellitus Type 2 GI Medical History: Denies: Hepatitis, Hiatal Hernia Musculoskeltal Medical History: Reports: Arthritis - generalized Psychiatric Medical History: Denies: Depression Hematology: Denies: Anemia, Sickle Cell Disease Past Surgical History Past Surgical History: Reports: Appendectomy, Hysterectomy, Tonsillectomy Denies: Amputation, Mastectomy, Pacemaker Social History Information Source: Relative Lives with: Spouse/Significant other Smoking Status: Former Smoker Number of Years Smokin Last Time Smoked: 27 Frequency of Alcohol Use: None Hx Recreational Drug Use: No Drugs: None Hx Prescription Drug Abuse: No - Advance Directive Resuscitation Status: Full Code Surrogate healthcare decision maker:: Patient's daughter is the surrogate decision-maker Family History Family History: COPD Parental Family History Reviewed: Yes Children Family History Reviewed: Yes Sibling(s) Family History Reviewed.: Yes Medication/Allergy Home Medications: Aspirin [Aspirin EC] 81 mg PO DAILY 07/16/17 Carbamazepine [Tegretol 200 Mg Tablet] 400 mg PO BID 07/16/17 Cholecalciferol (Vitamin D3) [Vitamin D3 2000 unit Tablet] 2,000 unit PO DAILY 07/16/17 Clobetasol Propionate [Clobetasol Propionate Cream] 1 applic TP DAILY 07/16/17 Cyanocobalamin (Vitamin B-12) [Vitamin B-12 SR 2000 mcg Tablet] 2,000 mcg PO DAILY 07/16/17 Diltiazem HCl [Diltiazem ER] 120 mg PO Q12 07/16/17 Donepezil HCl [Aricept] 10 mg PO DAILY 07/16/17 Folic Acid [Folvite 1 mg Tablet] 1 mg PO DAILY 07/16/17 Lactobacillus Acidophilus [Probiotic] 1 each PO ASDIR PRN 07/16/17 Levothyroxine Sodium [Synthroid] 112 mcg PO DAILY 07/16/17 Lisinopril [Prinivil] 40 mg PO DAILY 07/16/17 Meclizine HCl [Antivert 12.5 mg Tablet] 12.5 mg PO TIDP PRN 07/16/17 NPH, Human Insulin Isophane [Novolin N (NPH) Insulin 100 unit/mL] 40 unit SUBCUT PC 07/16/17 Nortriptyline HCl [Pamelor 25 Mg Capsule] 50 mg PO QHS 07/16/17 Pantoprazole Sodium [Protonix] 40 mg PO BID 07/16/17 Prenat 115/Iron Fum/Folic/Dss [ 19 Tablet] 1 tab PO DAILY 07/16/17 Propafenone HCl [Rythmol 150 Mg Tablet] 150 mg PO BID 07/16/17 Warfarin Sodium [Coumadin 2 mg Tablet] 2 mg PO DAILY 07/16/17 Warfarin Sodium [Coumadin 5 mg Tablet] 5 mg PO ASDIR PRN 07/16/17 Allergies/Adverse Reactions: hydromorphone HCl [From Dilaudid] Allergy (Intermediate, Verified 11/02/13 01:45 ) itching all over gabapentin [Gabapentin] Allergy (Verified 10/04/14 17:36) pregabalin [From Lyrica] Allergy (Verified 10/04/14 17:36) Review of Systems ROS unobtainable: Due to mental status Physical Exam Vital Signs: Temp Pulse Resp BP Pulse Ox 98.6 F 62 17 114/80 95 07/22/17 19:51 07/22/17 19:51 07/22/17 19:51 07/22/17 19:51 07/22/17 19:51 Intake & Output 07/21/17 07/22/17 07/23/17 06:59 06:59 06:59 Intake Total 715 1315 410 Output Total 800 Balance -85 1315 410 Weight 93 kg 93.5 kg Exam: GENERAL: well-nourished and in no acute distress. Patient noted to be lethargic but is arousable. Orientation could not be checked. She does answer some simple questions. HEAD: Atraumatic, normocephalic. EYES: Pupils equal round and reactive to light, extraocular movements intact, sclera anicteric, conjunctiva are normal. ENT: TMs normal, nares patent, oropharynx clear without exudates. Moist mucous membranes. No oral ulcerations or bleeding gums noted NECK: supple without lymphadenopathy. Trachea is central. No cervical or axillary lymphadenopathy noted. Carotids are 2+, JVD WNL LUNGS: Respiration seems nonlabored, no significant accessory muscle action noted. Breath sounds clear to auscultation bilaterally and equal noted. No wheezes rales or rhonchi noted. No significant dullness noted on percussion. CHEST: Palpation of the chest wall shows no significant chest wall tenderness. 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 ABDOMEN: Soft, no significant tenderness appreciated, normoactive bowel sounds. No guarding, no rebound. No rigidity noted . No masses appreciated. EXTREMITIES: Pedal pulses are 1-2+, no calf tenderness noted. No clubbing or cyanosis. 1+ pedal edema noted NEUROLOGICAL: Neurological exam shows patient to be lethargic with difficulty finding proper words. A full neurological exam was not performed. Patient however noted to move all 4 extremities. No facial asymmetry noted.. PSYCH: Could not be checked SKIN: No significant ecchymosis, skin is noted to be warm. MUSCULOSKELETAL EXAM: No significant acute joint swelling noted. Results Laboratory Results: 07/22/17 04:40 07/20/17 05:43 07/22/17 07/22/17 04:40 12:40 WBC 10.0 RBC 3.94 Hgb 12.2 Hct 36.3 MCV 92 MCH 31.0 MCHC 33.8 RDW 13.8 Plt Count 191 Carbonic Acid 1.22 HCO3/H2CO3 Ratio 21:1 ABG pH 7.44 ABG pCO2 40.5 ABG pO2 78.6 L ABG HCO3 26.6 H ABG O2 Saturation 96.0 ABG Base Excess 2.2 FiO2 3L 07/17/17 23:30 Clean Catch Midstream Urine Culture - Final Proteus Mirabilis Enterococcus Faecalis(Group D) EKG Comments: Twelve-lead EKG from July 19 shows atrial fibrillation with rapid ventricular response. No acute ST-T wave changes noted. Impressions: Chest X-Ray 07/15/17 19:11 IMPRESSION: NO ACUTE RADIOGRAPHIC FINDING IN THE CHEST. Carotid Doppler Study 07/16/17 00:00 IMPRESSION: NO HEMODYNAMICALLY SIGNIFICANT STENOSIS. Head CT 07/20/17 00:00 IMPRESSION: MILD CHRONIC MICROVASCULAR ISCHEMIA. NO ACUTE IMAGING FINDINGS IN THE BRAIN. EVIDENCE OF ACUTE STROKE: NO. Head CTA 07/21/17 00:00 IMPRESSION: 1. STABLE MILD CHRONIC MICROVASCULAR ISCHEMIC CHANGES. NO ACUTE FINDINGS. NO ENHANCING LESIONS. 2. NO CTA EVIDENCE OF STENOSIS OR ANEURYSM OF THE [place]. Assessment & Plan - Diagnosis (1) Atrial fibrillation with RVR Is this a current diagnosis for this admission?: Yes (2) Diabetes Qualifiers: Diabetes mellitus type: type 2 Diabetes mellitus mcc insulin use: unspecified mcc insulin use status Diabetes mellitus complication status : with unspecified complications Qualified Code(s): E11.8 - Type 2 diabetes mellitus with unspecified complications Is this a current diagnosis for this admission?: Yes (3) Altered mental status Qualifiers: Altered mental status type: unspecified Qualified Code(s): R41.82 - Altered mental status, unspecified Is this a current diagnosis for this admission?: Yes (4) Stroke-like symptoms Is this a current diagnosis for this admission?: Yes - Notes Notes: Atrial fibrillation with rapid ventricular response: Currently would recommend rate control with either Cardizem or beta-radha. Do not feel we need to restart any antiarrhythmic at this point. Patient seems to be tolerating atrial fibrillation well. At this point will recommend continuing chronic anticoagulation. May consider switch to Eliquis which may be easier to monitor and adjust than chronic Coumadin therapy. Diabetes: Currently being well managed by hospitalist. Altered mental status: Because not clear. Tegretol level is noted to come back high. Strokelike symptoms: CT scan and CTA has been negative. Patient cannot have MRI. Continue to observe for any evolutions symptoms. Patient will benefit from physical therapy evaluation. - Time Time Spent: 30 to 50 Minutes - CODE STATUS was discussed, patient remains full code. Surrogate decision-maker patient's daughter. Multiple medical problems were addressed. More than 50% of the time spent coordinating care, discussing management plans with involved caregivers. Management plans discussed with involved personnels. Medical decision making was of moderate to high complexity , patient's has multiple comorbidities. Medications reviewed and adjusted accordingly: Yes
[2017-07-22] MEDS: METOPROLOL SUCCINATE 50 MG TAB.SR.24H PO SCH (23:05)
[2017-07-22] MEDS: ATORVASTATIN CALCIUM 40 MG TABLET PO SCH (23:05)
[2017-07-22] MEDS: WARFARIN SODIUM 7.5 MG TABLET PO SCH (23:07)
[2017-07-22] MEDS: METOPROLOL SUCCINATE 25 MG TAB.SR.24H PO SCH (23:07)
[2017-07-23] MEDS: LEVOTHYROXINE SODIUM 0.112 MG TABLET PO SCH (05:55)
[2017-07-23] MEDS: LANSOPRAZOLE 30 MG TAB.RAP.DR PO SCH ×2 (05:55→16:36)
[2017-07-23 07:15] LABS: ABSOLUTE EOSINOPHILS # (AUTO) 0.2 10^3/uL (0.0-0.6); ABSOLUTE LYMPHOCYTES (AUTO) 2.1 10^3/uL (0.5-4.7); ABSOLUTE MONOCYTES (AUTO) 1.4 10^3/uL (0.1-1.4); ABSOLUTE NEUT (AUTO) 7.3 10^3/uL (1.7-8.2); BASOPHILS % (AUTO) 0.4 % (0-2); EOSINOPHILS % (AUTO) 1.9 % (0-6); HEMATOCRIT 37.9 % (36.0-47.0); HEMOGLOBIN 13.1 g/dL (12.0-15.5); LYMPHOCYTES % (AUTO) 18.8 % (13-45); MEAN CORPUSCULAR HEMOGLOBIN 31.9 pg (27.0-33.4); MEAN CORPUSCULAR HGB CONC 34.7 g/dL (32.0-36.0); MEAN CORPUSCULAR VOLUME 92 fl (80-97); MONOCYTES % (AUTO) 12.6 % (3-13); PLATELET COUNT 199 10^3/uL (150-450); RED BLOOD COUNT 4.12 10^6/uL (3.72-5.28); RED CELL DISTRIBUTION WIDTH 14.4 % (11.5-14.0); SEGMENTED NEUTROPHILS % (AUTO) 66.3 % (42-78); TOTAL CELLS COUNTED % (AUTO) 100 %; WHITE BLOOD COUNT 10.9 10^3/uL (4.0-10.5)
[2017-07-23 07:58] LABS: ALANINE AMINOTRANSFERASE 24 U/L (9-52); ALKALINE PHOSPHATASE 93 U/L (38-126); ANION GAP 10 (5-19); ASPARTATE AMINO TRANSFERASE 36 U/L (14-36); BILIRUBIN,DIRECT 0.4 mg/dL (0.0-0.4); BILIRUBIN,TOTAL 0.5 mg/dL (0.2-1.3); BLOOD UREA NITROGEN 18 mg/dL (7-20); CALCIUM 9.5 mg/dL (8.4-10.2); CARBON DIOXIDE 28 mmol/L (22-30); CHLORIDE 102 mmol/L (98-107); GLUCOSE 232 mg/dL (75-110); POTASSIUM 4.5 mmol/L (3.6-5.0); SODIUM 140.3 mmol/L (137-145); TOTAL PROTEIN 7.8 g/dL (6.3-8.2)
[2017-07-23] MEDS: INSULIN LISPRO 100 UNIT/ML 3 ML VIAL SUBCUT SCH ×3 (08:02→17:08)
[2017-07-23] MEDS: INSULIN LISPRO 100 UNIT/ML 3 ML VIAL SUBCUT PRN ×3 (08:03→17:18)
[2017-07-23] MEDS: INSULIN GLARGINE,HUM.REC.ANLOG 300 UNIT/3 ML INSULN.PEN SUBCUT SCH (08:03)
[2017-07-23] MEDS: BUDESONIDE/FORMOTEROL 160-4.5 MCG 60 PUFF/6 GM MDI IH SCH ×2 (09:21→17:07)
[2017-07-23] MEDS: PRENATAL VITAMIN W DHA CAPSULE PO SCH (09:25)
[2017-07-23] MEDS: DILTIAZEM HCL 180 MG CAPSULE.CR PO SCH ×2 (09:26→21:01)
[2017-07-23] MEDS: METOPROLOL SUCCINATE 25 MG TAB.SR.24H PO SCH ×2 (09:27→21:00)
[2017-07-23] MEDS: DONEPEZIL HCL 5 MG TABLET PO SCH (09:27)
[2017-07-23] MEDS: FOLIC ACID 1 MG TABLET PO SCH (09:27)
[2017-07-23] MEDS: METOPROLOL SUCCINATE 50 MG TAB.SR.24H PO SCH ×2 (09:27→21:02)
[2017-07-23] MEDS: CHOLECALCIFEROL (D3) 1,000 UNIT TABLET PO SCH (09:27)
[2017-07-23] MEDS: ASPIRIN 81 MG TABLET, ENT COATED PO SCH (09:27)
[2017-07-23] MEDS: CYANOCOBALAMIN (VITAMIN B-12) 1,000 MCG TABLET PO SCH (09:28)
[2017-07-23] MEDS: LACTOBACILLUS ACIDOPHILUS 250 MG TAB PO SCH ×2 (09:28→17:07)
[2017-07-23] MEDS: DOCUSATE SODIUM 100 MG CAPSULE PO SCH ×2 (09:28→17:07)
[2017-07-23] MEDS: CLOBETASOL PROPIONATE 0.05% CREAM 15 GM TP SCH (09:28)
--- NOTE | 2017-07-23 16:12 | PDOC PROGRESS REPORT ---
Subjective Progress Note for:: 07/23/17 Subjective:: Wide awake and complaining about back and leg pain Reason For Visit: APHASIA DM, ANXIETY Physical Exam Vital Signs: Temp Pulse Resp BP Pulse Ox 98.2 F 120 H 16 112/69 94 07/23/17 12:00 07/23/17 14:00 07/23/17 12:00 07/23/17 12:00 07/23/17 12:00 Intake & Output 07/22/17 07/23/17 07/24/17 05:59 05:59 05:59 Intake Total 1315 715 237 Balance 1315 715 237 Weight 206 lb 2.115 oz 206 lb 12.697 oz General appearance: PRESENT: no acute distress Respiratory exam: PRESENT: clear to auscultation chelo Cardiovascular exam: PRESENT: other - Irregularly irregular and tachycardic GI/Abdominal exam: PRESENT: soft Extremities exam: PRESENT: +1 edema - Pitting mostly below the knees and sacral Neurological exam: PRESENT: awake, oriented to person, oriented to place, CN II- XII grossly intact. ABSENT: oriented to time, oriented to situation, motor sensory deficit Psychiatric exam: PRESENT: agitated - Mildly. Somewhat argumentative. Did not seem to be able to grasp that her pain medication was putting her to sleep. Skin exam: PRESENT: warm Results Laboratory Results: 07/23/17 06:27 07/23/17 07:20 07/23/17 07/23/17 07/23/17 06:27 06:27 07:20 WBC 10.9 H RBC 4.12 Hgb 13.1 Hct 37.9 MCV 92 MCH 31.9 MCHC 34.7 RDW 14.4 H Plt Count 199 Seg Neutrophils % 66.3 Lymphocytes % 18.8 Monocytes % 12.6 Eosinophils % 1.9 Basophils % 0.4 Absolute Neutrophils 7.3 Absolute Lymphocytes 2.1 Absolute Monocytes 1.4 Absolute Eosinophils 0.2 Absolute Basophils 0.0 Sodium 140.3 Potassium 4.5 Chloride 102 Carbon Dioxide 28 Anion Gap 10 BUN 18 Creatinine 0.65 Est GFR ( Amer) > 60 Est GFR (Non-Af Amer) > 60 Glucose 232 H Calcium 9.5 Phosphorus 4.0 Magnesium 2.0 Total Bilirubin 0.5 AST 36 ALT 24 Alkaline Phosphatase 93 Ammonia Total Protein 7.8 Albumin 4.0 TSH 3.33 07/23/17 07:20 WBC RBC Hgb Hct MCV MCH MCHC RDW Plt Count Seg Neutrophils % Lymphocytes % Monocytes % Eosinophils % Basophils % Absolute Neutrophils Absolute Lymphocytes Absolute Monocytes Absolute Eosinophils Absolute Basophils Sodium Potassium Chloride Carbon Dioxide Anion Gap BUN Creatinine Est GFR ( Amer) Est GFR (Non-Af Amer) Glucose Calcium Phosphorus Magnesium Total Bilirubin AST ALT Alkaline Phosphatase Ammonia < 8.7 L Total Protein Albumin TSH 07/23/17 06:27 NT-Pro-B Natriuret Pep 596 H Impressions: Chest X-Ray 07/15/17 19:11 IMPRESSION: NO ACUTE RADIOGRAPHIC FINDING IN THE CHEST. Carotid Doppler Study 07/16/17 00:00 IMPRESSION: NO HEMODYNAMICALLY SIGNIFICANT STENOSIS. Head CT 07/20/17 00:00 IMPRESSION: MILD CHRONIC MICROVASCULAR ISCHEMIA. NO ACUTE IMAGING FINDINGS IN THE BRAIN. EVIDENCE OF ACUTE STROKE: NO. Head CTA 07/21/17 00:00 IMPRESSION: 1. STABLE MILD CHRONIC MICROVASCULAR ISCHEMIC CHANGES. NO ACUTE FINDINGS. NO ENHANCING LESIONS. 2. NO CTA EVIDENCE OF STENOSIS OR ANEURYSM OF [place]. Assessment & Plan - Diagnosis (1) Acute encephalopathy Is this a current diagnosis for this admission?: Yes Plan: Now appears evident that she was Tegretol toxic. I have held her Tegretol for 24 hours. She complains continuously about pain in her back and legs. Restart Tegretol at a lower dose. (2) Atrial fibrillation with RVR Is this a current diagnosis for this admission?: Yes Plan: Cardiology input noted and appreciated. Continue to increase her medications as blood pressure tolerates to achieve better rate control. (3) Dementia Qualifiers: Dementia type: Alzheimer's disease Is this a current diagnosis for this admission?: Yes Plan: Presumptive Alzheimer's. On Aricept at baseline. Probably needs to have Namenda added in, however given her recent sedation I will hold off on that so as to not complicate the picture. (4) Stroke-like symptoms Is this a current diagnosis for this admission?: Yes Plan: Resolved (5) Chronic back pain greater than 3 months duration Is this a current diagnosis for this admission?: Yes Plan: Continue to try and adjust her medications for symptom control without excessive sedation. Physical therapy should help. Planning for her to go to rehab after discharge here. I think we can move her along soon.
[2017-07-23] MEDS ORDERED: DIGOXIN 0.25 MG TABLET PO ONE (16:30)
[2017-07-23] MEDS ORDERED: FUROSEMIDE INJ/PF 40 MG/4 ML SDV IV ONE (16:45)
--- NOTE | 2017-07-23 20:10 | PDOC PROGRESS REPORT ---
Subjective Progress Note for:: 07/23/17 Subjective:: Patient seems to be doing better with gradual improvement. Patient having difficulty with word finding and other speech difficulty. She is however noted to be more alert today. Patient laying in bed comfortable.. Patient is atrial fibrillation, rate reasonably well controlled. Review of systems: Rest review of systems negative. Medications: Medications have been reviewed. Reason For Visit: APHASIA DM, ANXIETY Physical Exam Vital Signs: Temp Pulse Resp BP Pulse Ox 97.5 F 117 H 16 143/81 H 96 07/23/17 15:48 07/23/17 19:00 07/23/17 15:48 07/23/17 15:48 07/23/17 15:48 Intake & Output 07/22/17 07/23/17 07/24/17 06:59 06:59 06:59 Intake Total 1315 710 479 Balance 1315 710 479 Weight 93.5 kg 93.8 kg Exam: GENERAL: well-nourished and in no acute distress. Patient is alert orientation cannot be properly checked due to speech difficulty.. HEAD: Atraumatic, normocephalic. EYES: Pupils equal round and reactive to light, extraocular movements intact, sclera anicteric, conjunctiva are normal. ENT: TMs normal, nares patent, oropharynx clear without exudates. Moist mucous membranes. No oral ulcerations or bleeding gums noted NECK: supple without lymphadenopathy or JVD. Trachea is central. No cervical or axillary lymphadenopathy noted. Carotids are 2+ LUNGS: Breath sounds bibasilar fine crackles at bases. No significant dullness noted. CHEST: Palpation of chest wall shows no significant chest wall tenderness. 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 ABDOMEN: Soft, no significant tenderness appreciated, normoactive bowel sounds. No guarding, no rebound. No rigidity noted . No masses appreciated. EXTREMITIES: Pedal pulses are 1-2+, no calf tenderness noted, Trace + pedal edema noted. No clubbing or cyanosis. NEUROLOGICAL: Patient is alert she is able to move all 4 extremities with command but actual strength cannot be checked. Patient has speech difficulty. PSYCH: Mood and judgment could not be checked because of speech difficulty. SKIN: No significant ecchymosis, rash, ulcerations or signs of pruritus noted. MUSCULOSKELETAL EXAM: No significant joint swelling noted. Results Laboratory Results: 07/23/17 06:27 07/23/17 07:20 07/23/17 07/23/17 07/23/17 06:27 06:27 07:20 WBC 10.9 H RBC 4.12 Hgb 13.1 Hct 37.9 MCV 92 MCH 31.9 MCHC 34.7 RDW 14.4 H Plt Count 199 Seg Neutrophils % 66.3 Lymphocytes % 18.8 Monocytes % 12.6 Eosinophils % 1.9 Basophils % 0.4 Absolute Neutrophils 7.3 Absolute Lymphocytes 2.1 Absolute Monocytes 1.4 Absolute Eosinophils 0.2 Absolute Basophils 0.0 Sodium 140.3 Potassium 4.5 Chloride 102 Carbon Dioxide 28 Anion Gap 10 BUN 18 Creatinine 0.65 Est GFR ( Amer) > 60 Est GFR (Non-Af Amer) > 60 Glucose 232 H Calcium 9.5 Phosphorus 4.0 Magnesium 2.0 Total Bilirubin 0.5 AST 36 ALT 24 Alkaline Phosphatase 93 Ammonia Total Protein 7.8 Albumin 4.0 TSH 3.33 07/23/17 07:20 WBC RBC Hgb Hct MCV MCH MCHC RDW Plt Count Seg Neutrophils % Lymphocytes % Monocytes % Eosinophils % Basophils % Absolute Neutrophils Absolute Lymphocytes Absolute Monocytes Absolute Eosinophils Absolute Basophils Sodium Potassium Chloride Carbon Dioxide Anion Gap BUN Creatinine Est GFR ( Amer) Est GFR (Non-Af Amer) Glucose Calcium Phosphorus Magnesium Total Bilirubin AST ALT Alkaline Phosphatase Ammonia < 8.7 L Total Protein Albumin TSH 07/23/17 06:27 NT-Pro-B Natriuret Pep 596 H EKG Comments: Shows atrial fibrillation with controlled ventricular response. Impressions: Chest X-Ray 07/15/17 19:11 IMPRESSION: NO ACUTE RADIOGRAPHIC FINDING IN THE CHEST. Carotid Doppler Study 07/16/17 00:00 IMPRESSION: NO HEMODYNAMICALLY SIGNIFICANT STENOSIS. Head CT 07/20/17 00:00 IMPRESSION: MILD CHRONIC MICROVASCULAR ISCHEMIA. NO ACUTE IMAGING FINDINGS IN THE BRAIN. EVIDENCE OF ACUTE STROKE: NO. Head CTA 07/21/17 00:00 IMPRESSION: 1. STABLE MILD CHRONIC MICROVASCULAR ISCHEMIC CHANGES. NO ACUTE FINDINGS. NO ENHANCING LESIONS. 2. NO CTA EVIDENCE OF STENOSIS OR ANEURYSM OF THE [place]. Assessment & Plan - Diagnosis (1) Atrial fibrillation with RVR Is this a current diagnosis for this admission?: Yes (2) Diabetes Qualifiers: Diabetes mellitus type: type 2 Diabetes mellitus technician terminal and repeater insulin use: unspecified technician terminal and repeater insulin use status Diabetes mellitus complication status : with unspecified complications Qualified Code(s): E11.8 - Type 2 diabetes mellitus with unspecified complications Is this a current diagnosis for this admission?: Yes (3) Altered mental status Qualifiers: Altered mental status type: unspecified Qualified Code(s): R41.82 - Altered mental status, unspecified Is this a current diagnosis for this admission?: Yes (4) Stroke-like symptoms Is this a current diagnosis for this admission?: Yes - Notes Notes: Overall generally better. Did not find any family member at bedside today. Will continue to follow. Patient cardiac status seems stable. Medications reviewed. No medication changes recommended. Once we find patient's family members, will discuss switch to Eliquis or other newer oral anticoagulants. Atrial fibrillation with rapid ventricular response: Currently would recommend rate control with either Cardizem or beta-radha. Do not feel we need to restart any antiarrhythmic at this point. Patient seems to be tolerating atrial fibrillation well. At this point will recommend continuing chronic anticoagulation. May consider switch to Eliquis which may be easier to monitor and adjust than chronic Coumadin therapy. Diabetes: Currently being well managed by hospitalist. Altered mental status: Because not clear. Tegretol level is noted to come back high. Strokelike symptoms: CT scan and CTA has been negative. Patient cannot have MRI. Continue to observe for any evolutions symptoms. Status post pacemaker placement: Pacemaker seems to be working adequately. Patient will benefit from physical therapy evaluation. - Time Time with patient: Greater than 35 minutes - CODE STATUS was discussed, patient remains full code. Surrogate decision-maker unchanged. Multiple medical problems were addressed. More than 50% of the time spent coordinating care, discussing management plans with involved caregivers. Management plans discussed with involved personnels. Medical decision making was of moderate to high complexity, patient's has multiple comorbidities. Medications reviewed and adjusted accordingly: Yes
[2017-07-23] MEDS: ATORVASTATIN CALCIUM 40 MG TABLET PO SCH (21:00)
[2017-07-23] MEDS: CARBAMAZEPINE 200 MG TAB.SR.12H PO SCH (21:01)
[2017-07-23] MEDS: WARFARIN SODIUM 7.5 MG TABLET PO SCH (21:02)
[2017-07-23] MEDS ORDERED: NORTRIPTYLINE HCL 25 MG CAPSULE PO SCH (22:00)
[2017-07-24 05:23] LABS: INTERNATIONAL RATION (INR) 1.98; PROTHROMBIN TIME 23.4 SEC (11.4-15.4)
[2017-07-24 05:45] LABS: ALBUMIN 3.6 g/dL (3.5-5.0); ANION GAP 15 (5-19); BLOOD UREA NITROGEN 23 mg/dL (7-20); CALCIUM 9.3 mg/dL (8.4-10.2); CARBON DIOXIDE 26 mmol/L (22-30); CHLORIDE 98 mmol/L (98-107); GLUCOSE 282 mg/dL (75-110); POTASSIUM 4.3 mmol/L (3.6-5.0); SODIUM 138.7 mmol/L (137-145)
[2017-07-24] MEDS: LEVOTHYROXINE SODIUM 0.112 MG TABLET PO SCH (05:48)
[2017-07-24] MEDS: LANSOPRAZOLE 30 MG TAB.RAP.DR PO SCH ×2 (05:48→16:38)
[2017-07-24] MEDS: INSULIN LISPRO 100 UNIT/ML 3 ML VIAL SUBCUT PRN ×3 (08:45→16:36)
[2017-07-24] MEDS: INSULIN LISPRO 100 UNIT/ML 3 ML VIAL SUBCUT SCH ×3 (08:45→15:55)
[2017-07-24] MEDS: INSULIN GLARGINE,HUM.REC.ANLOG 300 UNIT/3 ML INSULN.PEN SUBCUT SCH (08:47)
[2017-07-24] MEDS: CHOLECALCIFEROL (D3) 1,000 UNIT TABLET PO SCH (09:15)
[2017-07-24] MEDS: DOCUSATE SODIUM 100 MG CAPSULE PO SCH ×2 (09:15→17:24)
[2017-07-24] MEDS: DONEPEZIL HCL 5 MG TABLET PO SCH (09:16)
[2017-07-24] MEDS: DILTIAZEM HCL 180 MG CAPSULE.CR PO SCH (09:16)
[2017-07-24] MEDS: LACTOBACILLUS ACIDOPHILUS 250 MG TAB PO SCH ×2 (09:16→17:23)
[2017-07-24] MEDS: FOLIC ACID 1 MG TABLET PO SCH (09:16)
[2017-07-24] MEDS: CARBAMAZEPINE 200 MG TAB.SR.12H PO SCH (09:16)
[2017-07-24] MEDS: METOPROLOL SUCCINATE 50 MG TAB.SR.24H PO SCH (09:16)
[2017-07-24] MEDS: ASPIRIN 81 MG TABLET, ENT COATED PO SCH (09:17)
[2017-07-24] MEDS: PRENATAL VITAMIN W DHA CAPSULE PO SCH (09:17)
[2017-07-24] MEDS: METOPROLOL SUCCINATE 25 MG TAB.SR.24H PO SCH (09:17)
[2017-07-24] MEDS: CYANOCOBALAMIN (VITAMIN B-12) 1,000 MCG TABLET PO SCH (09:17)
[2017-07-24] MEDS: CLOBETASOL PROPIONATE 0.05% CREAM 15 GM TP SCH (09:18)
[2017-07-24] MEDS: BUDESONIDE/FORMOTEROL 160-4.5 MCG 60 PUFF/6 GM MDI IH SCH ×2 (09:18→17:24)
[2017-07-24] MEDS ORDERED: POLYETHYLENE GLYCOL 3350 POWDER 17 GM/1 PACKET PO SCH (10:00)
[2017-07-24] MEDS ORDERED: DIGOXIN 0.125 MG TABLET PO SCH (10:00)
--- NOTE | 2017-07-24 11:25 | PDOC PROGRESS REPORT ---
Subjective Progress Note for:: 07/24/17 Subjective:: Patient seems to be doing better with gradual improvement. Patient is significantly more alert and has marked improvement in her speech. Patient is atrial fibrillation, rate reasonably well controlled. Review of systems: Rest review of systems negative. Medications: Medications have been reviewed. Reason For Visit: APHASIA DM, ANXIETY Physical Exam Vital Signs: Temp Pulse Resp BP Pulse Ox 98.0 F 134 H 20 139/103 H 99 07/24/17 07:34 07/24/17 07:34 07/24/17 07:34 07/24/17 07:34 07/24/17 07:34 Intake & Output 07/23/17 07/24/17 07/25/17 06:59 06:59 06:59 Intake Total 710 1204 Balance 710 1204 Weight 93.8 kg 97.4 kg Exam: GENERAL: well-nourished and in no acute distress. Alert and oriented x 2 HEAD: Atraumatic, normocephalic. EYES: Pupils equal round and reactive to light, extraocular movements intact, sclera anicteric, conjunctiva are normal. ENT: TMs normal, nares patent, oropharynx clear without exudates. Moist mucous membranes. No oral ulcerations or bleeding gums noted NECK: supple without lymphadenopathy. Trachea is central. No cervical or axillary lymphadenopathy noted. Carotids are 2+, JVD WNL LUNGS: Respiration seems nonlabored, no significant accessory muscle action noted. Breath sounds clear to auscultation bilaterally and equal noted. No wheezes rales or rhonchi noted. No significant dullness noted on percussion. CHEST: Palpation of the chest wall shows no significant chest wall tenderness. 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 ABDOMEN: Soft, no significant tenderness appreciated, normoactive bowel sounds. No guarding, no rebound. No rigidity noted . No masses appreciated. EXTREMITIES: Pedal pulses are 1-2+, no calf tenderness noted. No clubbing or cyanosis. negative pedal edema noted NEUROLOGICAL: Focused neurological exam showed no significant neurologic deficit. no focal weakness appreciated. Speech significantly improved. PSYCH: Normal mood, normal affect. Judgment and insight within normal limits. SKIN: No significant ecchymosis, skin is noted to be warm. MUSCULOSKELETAL EXAM: No significant acute joint swelling noted. Results Laboratory Results: 07/23/17 06:27 07/24/17 04:23 07/24/17 04:23 Sodium 138.7 Potassium 4.3 Chloride 98 Carbon Dioxide 26 Anion Gap 15 BUN 23 H Creatinine 0.62 Est GFR ( Amer) > 60 Est GFR (Non-Af Amer) > 60 Glucose 282 H Calcium 9.3 Phosphorus 4.0 Magnesium 1.9 Albumin 3.6 07/23/17 07/24/17 06:27 04:23 NT-Pro-B Natriuret Pep 596 H 790 H EKG Comments: Shows atrial fibrillation with controlled ventricular response Impressions: Chest X-Ray 07/15/17 19:11 IMPRESSION: NO ACUTE RADIOGRAPHIC FINDING IN THE CHEST. Carotid Doppler Study 07/16/17 00:00 IMPRESSION: NO HEMODYNAMICALLY SIGNIFICANT STENOSIS. Head CT 07/20/17 00:00 IMPRESSION: MILD CHRONIC MICROVASCULAR ISCHEMIA. NO ACUTE IMAGING FINDINGS IN THE BRAIN. EVIDENCE OF ACUTE STROKE: NO. Head CTA 07/21/17 00:00 IMPRESSION: 1. STABLE MILD CHRONIC MICROVASCULAR ISCHEMIC CHANGES. NO ACUTE FINDINGS. NO ENHANCING LESIONS. 2. NO CTA EVIDENCE OF STENOSIS OR ANEURYSM OF THE [place]. Assessment & Plan - Diagnosis (1) Atrial fibrillation with RVR Is this a current diagnosis for this admission?: Yes (2) Diabetes Qualifiers: Diabetes mellitus type: type 2 Diabetes mellitus lobsterman insulin use: unspecified group home insulin use status Diabetes mellitus complication status : with unspecified complications Qualified Code(s): E11.8 - Type 2 diabetes mellitus with unspecified complications Is this a current diagnosis for this admission?: Yes (3) Altered mental status Qualifiers: Altered mental status type: unspecified Qualified Code(s): R41.82 - Altered mental status, unspecified Is this a current diagnosis for this admission?: Yes (4) Stroke-like symptoms Is this a current diagnosis for this admission?: Yes (5) Cardiac pacemaker in situ Is this a current diagnosis for this admission?: Yes - Notes Notes: Patient doing reasonably well. I am told that patient is likely to be discharged later on today. Patient is reasonably stable from cardiac standpoint. Atrial fibrillation with rapid ventricular response: Continue with rate control and chronic anticoagulation strategy. Do not feel we need to restart any antiarrhythmic at this point. Patient seems to be tolerating atrial fibrillation well. At this point will recommend continuing chronic anticoagulation. May consider switch to Eliquis which may be easier to monitor and adjust than chronic Coumadin therapy. Diabetes: Currently being well managed by hospitalist. Altered mental status: This has significantly improved. Patient's speech has improved. Most likely related to Tegretol toxicity. Strokelike symptoms: CT scan and CTA has been negative. Patient cannot have MRI. Patient it seems like did not really have a stroke but symptoms could have been related to Tegretol toxicity. Patient will benefit from physical therapy evaluation. - Time Time with patient: Greater than 35 minutes - CODE STATUS was discussed, patient remains full code. Surrogate decision-maker unchanged. Multiple medical problems were addressed. More than 50% of the time spent coordinating care, discussing management plans with involved caregivers. Management plans discussed with involved personnels. Medical decision making was of moderate to high complexity, patient's has multiple comorbidities. Medications reviewed and adjusted accordingly: Yes
--- NOTE | 2017-07-24 12:56 | PDOC TRANSFER SUMMARY ---
General - Admit/Disc Date/PCP Admission Date/Primary Care Provider: 07/16/17 09:45 BLAISE RAY MD Discharge Date: 07/24/17 - Discharge Diagnosis (1) Acute encephalopathy Is this a current diagnosis for this admission?: Yes Summary: Turned out to be Tegretol toxic. She had been on the same dose of Tegretol for quite some time, but apparently metabolizes more slowly now. Restarted at a lower dose. (2) Atrial fibrillation with RVR Is this a current diagnosis for this admission?: Yes Summary: Had previously been on Rythmol which had become ineffective. That was stopped and she was changed over to combination of diltiazem, metoprolol, and digoxin. (3) Dementia Is this a current diagnosis for this admission?: Yes (4) Chronic back pain greater than 3 months duration Is this a current diagnosis for this admission?: Yes Summary: Tegretol and nortriptyline doses were adjusted. - Additional Information Resuscitation Status: Full Code Discharge Diet: Cardiac, Diabetic Discharge Activity: Activity As Tolerated Prescriptions: Atorvastatin Calcium [Lipitor 40 mg Tablet] 40 mg PO QHS #30 tablet Budesonide/Formoterol Fumarate [Symbicort HFA 160-4.5 mcg Inhaler 6 gm] 1 puff IH BID #1 inhaler Carbamazepine [Tegretol Xr 200 mg Tab.sr] 200 mg PO Q12 #60 tab.sr.12h Digoxin [Lanoxin 0.125 mg Tablet] 0.125 mg PO DAILY #30 tablet Diltiazem HCl [Cardizem Cd 180 mg Capsule] 180 mg PO Q12 #60 capsule.cr Furosemide [Lasix 40 mg Tablet] 40 mg PO DAILY #30 tablet Metoprolol Succinate [Toprol Xl 25 mg Tab.sr] 25 mg PO Q12 #60 tab.sr.24h Metoprolol Succinate [Toprol Xl 50 mg Tab.sr] 50 mg PO Q12 #60 tab.sr.24h Nortriptyline HCl [Pamelor 25 mg Capsule] 25 mg PO QHS #30 capsule Warfarin Sodium [Coumadin 7.5 mg Tablet] 7.5 mg PO QHS #30 tablet Home Medications: Aspirin [Aspirin EC] 81 mg PO DAILY 07/16/17 Cholecalciferol (Vitamin D3) [Vitamin D3 2000 unit Tablet] 2,000 unit PO DAILY 07/16/17 Clobetasol Propionate [Clobetasol Propionate Cream] 1 applic TP DAILY 07/16/17 Cyanocobalamin (Vitamin B-12) [Vitamin B-12 SR 2000 mcg Tablet] 2,000 mcg PO DAILY 07/16/17 Donepezil HCl [Aricept] 10 mg PO DAILY 07/16/17 Folic Acid [Folvite 1 mg Tablet] 1 mg PO DAILY 07/16/17 Lactobacillus Acidophilus [Probiotic] 1 each PO ASDIR PRN 07/16/17 Levothyroxine Sodium [Synthroid] 112 mcg PO DAILY 07/16/17 NPH, Human Insulin Isophane [Novolin N (NPH) Insulin 100 unit/mL] 40 unit SUBCUT PC 07/16/17 Pantoprazole Sodium [Protonix] 40 mg PO BID 07/16/17 Prenat 115/Iron Fum/Folic/Dss [ 19 Tablet] 1 tab PO DAILY 07/16/17 Acetaminophen [Tylenol 325 mg Tablet] 650 mg PO Q4HP PRN tablet 07/24/17 Atorvastatin Calcium [Lipitor 40 mg Tablet] 40 mg PO QHS #30 tablet 07/24/17 Budesonide/Formoterol Fumarate [Symbicort HFA 160-4.5 mcg Inhaler 6 gm] 1 puff IH BID #1 inhaler 07/24/17 Carbamazepine [Tegretol Xr 200 mg Tab.sr] 200 mg PO Q12 #60 tab.sr.12h 07/24/17 Digoxin [Lanoxin 0.125 mg Tablet] 0.125 mg PO DAILY #30 tablet 07/24/17 Diltiazem HCl [Cardizem Cd 180 mg Capsule] 180 mg PO Q12 #60 capsule.cr Furosemide [Lasix 40 mg Tablet] 40 mg PO DAILY #30 tablet 07/24/17 Metoprolol Succinate [Toprol Xl 25 mg Tab.sr] 25 mg PO Q12 #60 tab.sr.24h Metoprolol Succinate [Toprol Xl 50 mg Tab.sr] 50 mg PO Q12 #60 tab.sr.24h Nortriptyline HCl [Pamelor 25 mg Capsule] 25 mg PO QHS #30 capsule 07/24/17 Polyethylene Glycol 3350 [Miralax Powder 17 gm/Packet] 17 gm PO DAILY powd.pack 06/08/18 Warfarin Sodium [Coumadin 7.5 mg Tablet] 7.5 mg PO QHS #30 tablet 07/24/17 History of Present Illness Admission Date/PCP: 07/16/17 09:45 BLAISE RAY MD Patient complains of: Slurred speech History of Present Illness: CLARENCE mathis a 81 year old female with an extensive past medical history of atrial fibrillation, obstructive sleep apnea, obesity, diabetes, chronic pain , bipolar, polymyalgia rheumatica and GERD. She presents with 1 week of altered mental status described as intermittent confusion, word finding difficulty and slurred speech. Each episode has resolved spontaneously to baseline without intervention. She presents to her primary care provider Dr. Ottoniel Ortiz and is found to be in A. fib with RVR in the 120s. She is referred to the emergency room for evaluation. She started on IV Cardizem and receives flecainide resulting in a heart rate in 80s. She denies chest pain, headache, nausea vomiting, confusion or recent change in medications. Patient describes exceptional social stressor as her debilitated has been discharged from care home to home today. Workup is remarkable for A. fib with RVR and a subtherapeutic INR, she is referred to the hospitalist for admission. Hospital Course Hospital Course: Initially she cleared to the point where she was able to ambulate to the door and back with a walker. A mild urinary tract infection was treated, so we initially thought that her confusion and lethargy had been as a result of her urinary tract infection. However her symptoms returned after couple days. She got progressively more lethargic. We undertook a fairly extensive neurologic workup that was nondiagnostic. I checked a Tegretol level which was markedly elevated at 18 the upper end of normal being 12 by this assay. I held her Tegretol for 24 hours, she woke up, but complained of back pain. I restarted her Tegretol and Pamelor at a lower dose. Pain control appears to be adequate, she is fully awake. She had uncontrolled atrial fibrillation with rapid ventricular response. We stopped her Rythmol and started her on Cardizem and metoprolol. Those doses have been titrated up. She was seen in consultation by cardiology who suggested we add digoxin. This point her rate is controlled, though still varies fairly widely depending upon her activity level. Her INR was low on presentation, we slightly increased her warfarin, and it is at the low end of normal. This will need to be followed over time as always. She initially insisted on going home, but this afternoon has decided she needs to go to rehab to get strengthened up first. Physical Exam Vital Signs: Temp Pulse Resp BP Pulse Ox 98.3 F 110 H 20 120/88 H 91 L 07/24/17 12:35 07/24/17 12:35 07/24/17 12:35 07/24/17 12:35 07/24/17 12:35 Intake & Output 07/23/17 07/24/17 07/25/17 05:59 05:59 05:59 Intake Total 715 959 245 Output Total 0 Balance 715 959 245 Weight 206 lb 12.697 oz 214 lb 11.684 oz General appearance: PRESENT: no acute distress, obese Respiratory exam: PRESENT: clear to auscultation chelo Cardiovascular exam: PRESENT: other - Irregularly irregular GI/Abdominal exam: PRESENT: soft. ABSENT: tenderness Neurological exam: PRESENT: alert Psychiatric exam: PRESENT: flat affect Skin exam: PRESENT: warm Results Laboratory Results: 07/23/17 06:27 07/24/17 04:23 07/24/17 04:23 Sodium 138.7 Potassium 4.3 Chloride 98 Carbon Dioxide 26 Anion Gap 15 BUN 23 H Creatinine 0.62 Est GFR ( Amer) > 60 Est GFR (Non-Af Amer) > 60 Glucose 282 H Calcium 9.3 Phosphorus 4.0 Magnesium 1.9 Albumin 3.6 07/23/17 07/24/17 06:27 04:23 NT-Pro-B Natriuret Pep 596 H 790 H Impressions: Chest X-Ray 07/15/17 19:11 IMPRESSION: NO ACUTE RADIOGRAPHIC FINDING IN THE CHEST. Carotid Doppler Study 07/16/17 00:00 IMPRESSION: NO HEMODYNAMICALLY SIGNIFICANT STENOSIS. Head CT 07/20/17 00:00 IMPRESSION: MILD CHRONIC MICROVASCULAR ISCHEMIA. NO ACUTE IMAGING FINDINGS IN THE BRAIN. EVIDENCE OF ACUTE STROKE: NO. Head CTA 07/21/17 00:00 IMPRESSION: 1. STABLE MILD CHRONIC MICROVASCULAR ISCHEMIC CHANGES. NO ACUTE FINDINGS. NO ENHANCING LESIONS. 2. NO CTA EVIDENCE OF STENOSIS OR ANEURYSM OF THE [place]. Transfer Plan - Time Spent with Patient Time spent with patient: Greater than 30 Minutes Qualifiers - * PATIENT BEING DISCHARGED WITH ANY OF THE FOLLOWING DIAGNOSIS: No
[2017-07-24 15:44] VITALS: BP 133/96
[2017-07-24] MEDS ORDERED: MAGNESIUM CITRATE 296 ML BOTTLE PO ONE (16:30)
[2017-07-24] MEDS ORDERED: FUROSEMIDE 40 MG TABLET PO SCH (18:00)
== END 2017-07-24 18:22 | DRG 308 ==
LOC: ER 17:31 → EH 07-16 00:30 → 3W 07-16 03:25 → INTOOBSV 07-16 09:45 → OBSVTOIN 07-16 09:45
PROVIDERS: ADMIT Internal Medicine; ATTEND Internal Medicine
DX: I48.2 Chronic atrial fibrillation (principal); G92 Toxic encephalopathy; R47.01 Aphasia; N39.0 Urinary tract infection, site not specified; T42.1X5A Adverse effect of iminostilbenes, initial encounter; I10 Essential (primary) hypertension; M15.9 Polyosteoarthritis, unspecified; G47.33 Obstructive sleep apnea (adult) (pediatric); E66.9 Obesity, unspecified; F31.9 Bipolar disorder, unspecified; M35.3 Polymyalgia rheumatica; K21.9 Gastro-esophageal reflux disease without esophagitis; G89.29 Other chronic pain; E78.5 Hyperlipidemia, unspecified; G30.9 Alzheimer's disease, unspecified; Z95.0 Presence of cardiac pacemaker; R79.1 Abnormal coagulation profile; E03.9 Hypothyroidism, unspecified; E11.65 Type 2 diabetes mellitus with hyperglycemia; R00.0 Tachycardia, unspecified; M54.9 Dorsalgia, unspecified; F41.9 Anxiety disorder, unspecified; F02.80 Dementia in other diseases classified elsewhere, unspecified severity, without behavioral disturbance, psychotic disturbance, mood disturbance, and anxiety; Z90.710 Acquired absence of both cervix and uterus; Z88.6 Allergy status to analgesic agent; Z88.8 Allergy status to other drugs, medicaments and biological substances; Z90.49 Acquired absence of other specified parts of digestive tract; Z87.891 Personal history of nicotine dependence; Z79.82 Long term (current) use of aspirin; Z79.899 Other long term (current) drug therapy; Z79.4 Long term (current) use of insulin; Z79.02 Long term (current) use of antithrombotics/antiplatelets; Z63.79 Other stressful life events affecting family and household; Z68.34 Body mass index [BMI] 34.0-34.9, adult
CPT/HCPCS: 36415; 36600; 70450; 70496; 71045; 80048; 80053; 80061; 80069; 80156; 80307; 81001; 82140; 82803; 82962; 83036; 83690; 83735; 83880; 84100; 84443; 84484; 85025; 85027; 85610; 85730; 87086; 87088; 87186; 93005; 93010; 93306; 93880; 96365; 96366; 99285; G0378; G8978-GP; G8979-GP; G8980-GP; G8987-GO; G8988-GO; G8989-GO; J0696; J1652; J1815; J1940; J2405; J3490; J7040

== ENCOUNTER 2017-08-31 13:23 | Inpatient (IN) | payer MEDICARE ==
--- NOTE | 2017-08-31 14:18 | ER Document Report ---
ED Medical Screen (RME) - General Chief Complaint: Breathing Difficulty Stated Complaint: DIFFICULTY BREATHING Time Seen by Provider: 08/31/17 14:12 Notes: RAPID MEDICAL EVALUATION DISCLOSURE I have seen this patient as part of a Rapid Medical Evaluation and, if applicable, placed any initially appropriate orders. The patient will be seen and fully evaluated, including a full history and physical exam, by a provider ( in Main ED or Fast Track) when a room becomes available. 81-year-old female PMH CHF on Lasix here with complaints of shortness of breath over the past 2 days progressively worsening. The shortness of breath is worse with lying flat and exertion. She does wear nasal cannula oxygen 24 7 at home. She also has some leg swelling. She does not have any chest pain discomfort tightness. She was just [facility] ago however she has been unable to get an appointment with her doctor therefore she has not had any of her medications (including Lasix) in the past 2 weeks. EXAM Mild bibasilar rales Minimally tachycardic Mild BLE pitting edema TRAVEL OUTSIDE OF THE [place] IN LAST 30 DAYS: No - Related Data Allergies/Adverse Reactions: hydromorphone HCl [From Dilaudid] Allergy (Intermediate, Verified 08/31/17 13:23 ) itching all over gabapentin [Gabapentin] Allergy (Verified 08/31/17 13:23) pregabalin [From Lyrica] Allergy (Verified 08/31/17 13:23) Past Medical History - Past Medical History Cardiac Medical History: Reports: Hx Atrial Fibrillation, Hx Hypercholesterolemia, Hx Hypertension Denies: Hx Heart Attack Pulmonary Medical History: Reports: Hx Bronchitis - 1974, Hx Pneumonia - as a child Denies: Hx Asthma, Hx COPD Neurological Medical History: Denies: Hx Seizures Endocrine Medical History: Reports: Hx Diabetes Mellitus Type 2 Renal/ Medical History: Denies: Hx Peritoneal Dialysis GI Medical History: Denies: Hx Hepatitis, Hx Hiatal Hernia, Hx Ulcer Musculoskeltal Medical History: Reports Hx Arthritis - generalized Psychiatric Medical History: Denies: Hx Depression Infectious Medical History: Denies: Hx Hepatitis Past Surgical History: Reports: Hx Appendectomy, Hx Hysterectomy, Hx Tonsillectomy. Denies: Hx Mastectomy, Hx Open Heart Surgery, Hx Pacemaker - Immunizations Hx Diphtheria, Pertussis, Tetanus Vaccination: Yes History of Influenza Vaccine for 11/2016 - 04/2017 Season: Yes Influenza Administration Date for 11/2016 - 04/2017 Season: 11/16/16 Physical Exam - Vital signs Vitals: Temp Pulse Resp BP Pulse Ox 97.8 F 109 H 20 123/102 H 92 08/31/17 13:40 08/31/17 13:40 08/31/17 13:40 08/31/17 13:40 08/31/17 13:40 Course - Vital Signs Vital signs: Temp Pulse Resp BP Pulse Ox 97.8 F 109 H 20 123/102 H 92 08/31/17 13:40 08/31/17 13:40 08/31/17 13:40 08/31/17 13:40 08/31/17 13:40 Doctor's Discharge - Discharge Referrals: BLAISE RAY MD [Primary Care Provider] - Follow up as needed
[2017-08-31] MEDS ORDERED: DILTIAZEM HCL INJ 25 MG/5 ML VIAL IV ONE (15:03)
[2017-08-31 15:06] LABS: ABSOLUTE BASOPHILS # (AUTO) 0.1 10^3/uL (0.0-0.2); ABSOLUTE EOSINOPHILS # (AUTO) 0.2 10^3/uL (0.0-0.6); ABSOLUTE LYMPHOCYTES (AUTO) 1.1 10^3/uL (0.5-4.7); ABSOLUTE MONOCYTES (AUTO) 0.5 10^3/uL (0.1-1.4); ABSOLUTE NEUT (AUTO) 4.1 10^3/uL (1.7-8.2); EOSINOPHILS % (AUTO) 4.1 % (0-6); HEMATOCRIT 33.2 % (36.0-47.0); LYMPHOCYTES % (AUTO) 18.4 % (13-45); MEAN CORPUSCULAR HEMOGLOBIN 30.6 pg (27.0-33.4); MEAN CORPUSCULAR HGB CONC 33.2 g/dL (32.0-36.0); MEAN CORPUSCULAR VOLUME 92 fl (80-97); MONOCYTES % (AUTO) 8.7 % (3-13); PLATELET COUNT 266 10^3/uL (150-450); RED CELL DISTRIBUTION WIDTH 15.6 % (11.5-14.0); SEGMENTED NEUTROPHILS % (AUTO) 67.8 % (42-78); TOTAL CELLS COUNTED % (AUTO) 100 %
--- NOTE | 2017-08-31 15:09 | ER Document Report ---
ED General - General Chief Complaint: Breathing Difficulty Stated Complaint: DIFFICULTY BREATHING Time Seen by Provider: 08/31/17 14:12 Mode of Arrival: Ambulatory Information source: Patient Notes: 81-year-old female presents with complaints of shortness breath difficulty breathing. Patient has a history of A. fib is on Coumadin, Cardizem. Notes that she was placed in care facility and has not received her medications the way she is supposed to. Patient denies any fevers or chills denies any nausea vomiting patient does state that she is on 2 L nasal cannula at home but has been feeling short of breath TRAVEL OUTSIDE OF THE [place] IN LAST 30 DAYS: No - HPI Onset: Other Onset/Duration: Worse Quality of pain: No pain Severity: Moderate Pain Level: Denies Associated symptoms: Nonproductive cough, Shortness of breath Exacerbated by: Walking Relieved by: Denies Similar symptoms previously: Yes Recently seen / treated by doctor: Yes - Related Data Allergies/Adverse Reactions: hydromorphone HCl [From Dilaudid] Allergy (Intermediate, Verified 08/31/17 14:22 ) itching all over gabapentin [Gabapentin] Allergy (Verified 08/31/17 14:22) pregabalin [From Lyrica] Allergy (Verified 08/31/17 14:22) Past Medical History - Social History Smoking Status: Former Smoker Cigarette use (# per day): No Chew tobacco use (# tins/day): No Smoking Education Provided: No Frequency of alcohol use: None Drug Abuse: None Family History: COPD Patient has suicidal ideation: No Patient has homicidal ideation: No - Past Medical History Cardiac Medical History: Reports: Hx Atrial Fibrillation, Hx Hypercholesterolemia, Hx Hypertension Denies: Hx Heart Attack Pulmonary Medical History: Reports: Hx Bronchitis - 1973, Hx Pneumonia - as a child Denies: Hx Asthma, Hx COPD Neurological Medical History: Denies: Hx Seizures Endocrine Medical History: Reports: Hx Diabetes Mellitus Type 2 Renal/ Medical History: Denies: Hx Peritoneal Dialysis GI Medical History: Denies: Hx Hepatitis, Hx Hiatal Hernia, Hx Ulcer Musculoskeletal Medical History: Reports Hx Arthritis - generalized Psychiatric Medical History: Denies: Hx Depression Infectious Medical History: Denies: Hx Hepatitis Past Surgical History: Reports: Hx Appendectomy, Hx Hysterectomy, Hx Tonsillectomy. Denies: Hx Mastectomy, Hx Open Heart Surgery, Hx Pacemaker - Immunizations Hx Diphtheria, Pertussis, Tetanus Vaccination: Yes Hx Pneumococcal Vaccination: 02/16/07 Review of Systems - Review of Systems Notes: REVIEW OF SYSTEMS: CONSTITUTIONAL : Denies fever, chills, or sweats. Denies recent illness. EENT: Denies eye, ear, throat, or mouth pain or symptoms. Denies nasal or sinus congestion or discharge. Denies throat, tongue, or mouth swelling or difficulty swallowing. CARDIOVASCULAR: Admits to history of A. fib. RESPIRATORY: Denies cough, cold, or chest congestion. Denies shortness of breath, difficulty breathing, or wheezing. GASTROINTESTINAL: Admits to shortness of breath difficulty breathing GENITOURINARY: Denies difficulty urinating, painful urination, burning, frequency, blood in urine, or discharge. FEMALE GENITOURINARY: Denies vaginal bleeding, heavy or abnormal periods, irregular periods. Denies vaginal discharge or odor. MUSCULOSKELETAL: Denies back or neck pain or stiffness. Denies joint pain or swelling. SKIN: Denies rash, lesions or sores. HEMATOLOGIC : Denies easy bruising or bleeding. LYMPHATIC: Denies swollen, enlarged glands. NEUROLOGICAL: Denies confusion or altered mental status. Denies passing out or loss of consciousness. Denies dizziness or lightheadedness. Denies headache. Denies weakness or paralysis or loss of use of either side. Denies problems with gait or speech. Denies sensory loss, numbness, or tingling. Denies seizures. PSYCHIATRIC: Denies anxiety or stress. Denies depression, suicidal ideation, or homicidal ideation. ALL OTHER SYSTEMS REVIEWED AND NEGATIVE. PHYSICAL EXAMINATION: GENERAL: Well-appearing, well-nourished and in no acute distress. Patient on 3 L nasal cannula HEAD: Atraumatic, normocephalic. EYES: Pupils equal round and reactive to light, extraocular movements intact, conjunctiva are normal. ENT: Nares patent, oropharynx clear without exudates. Moist mucous membranes. NECK: Normal range of motion, supple without lymphadenopathy LUNGS: Breath sounds clear to auscultation bilaterally and equal. No wheezes rales or rhonchi. HEART: Regular rate rhythm heart rate anywhere between 120s-150s ABDOMEN: Soft, nontender, nondistended abdomen. No guarding, no rebound. No masses appreciated. Female : deferred Musculoskeletal: Normal range of motion, no pitting or edema. No cyanosis. NEUROLOGICAL: Cranial nerves grossly intact. Normal speech, normal gait. Normal sensory, motor exams PSYCH: Normal mood, normal affect. SKIN: Warm, Dry, normal turgor, no rashes or lesions noted. Dictation was performed using [employer] voice recognition software Physical Exam - Vital signs Vitals: Temp Pulse Resp BP Pulse Ox 97.8 F 109 H 20 123/102 H 92 08/31/17 13:40 08/31/17 13:40 08/31/17 13:40 08/31/17 13:40 08/31/17 13:40 Course - Re-evaluation Re-evalutation: 08/31/17 15:08 Patient noted to be in A. fib RVR heart rate max 140s CTA pending 08/31/17 15:09 08/31/17 17:11 Patient heart rate is 110s and stable for admission CTA pending - Vital Signs Vital signs: Temp Pulse Resp BP Pulse Ox 97.8 F 109 H 15 148/98 H 96 08/31/17 13:40 08/31/17 13:40 08/31/17 16:00 08/31/17 15:00 08/31/17 16:00 - Laboratory Result Diagrams: 08/31/17 14:38 08/31/17 14:38 Laboratory results interpreted by me: 08/31/17 08/31/17 08/31/17 14:38 14:38 14:38 RBC 3.60 L Hgb 11.0 L Hct 33.2 L RDW 15.6 H PT Glucose 199 H NT-Pro-B Natriuret Pep 815 H 08/31/17 14:38 RBC Hgb Hct RDW PT 25.1 H Glucose NT-Pro-B Natriuret Pep - Diagnostic Test Radiology reviewed: Image reviewed, Reports reviewed Discharge - Discharge Clinical Impression: Atrial fibrillation with RVR, Subtherapeutic international normalized ratio ( INR) Condition: Stable Disposition: ADMITTED INPATIENT Admitting Provider: Hospitalist Unit Admitted: IMCU Referrals: BLAISE RAY MD [Primary Care Provider] - Follow up as needed
[2017-08-31 15:20] LABS: INTERNATIONAL RATION (INR) 2.16; PROTHROMBIN TIME 25.1 SEC (11.4-15.4)
[2017-08-31 15:30] LABS: ANION GAP 12 (5-19); BLOOD UREA NITROGEN 11 mg/dL (7-20); CALCIUM 8.9 mg/dL (8.4-10.2); CARBON DIOXIDE 28 mmol/L (22-30); CHLORIDE 101 mmol/L (98-107); GLUCOSE 199 mg/dL (75-110); POTASSIUM 4.6 mmol/L (3.6-5.0)
[2017-08-31] MEDS: DILTIAZEM HCL/D5W 125 MG/125 ML RTUINJ IV PRN (15:40)
[2017-08-31 15:41] LABS: TROPONIN I 0.017 ng/mL
--- NOTE | 2017-08-31 15:44 | RADIOLOGY REPORT (SQ) ---
EXAM DESCRIPTION: CHEST SINGLE VIEW COMPLETED DATE/TIME: 08/31/2017 3:13 pm REASON FOR STUDY: SOB COMPARISON: CHEST FILM 07/15/2017, 10/01/2015 EXAM PARAMETERS: NUMBER OF VIEWS: One view. TECHNIQUE: Single frontal radiographic view of the chest acquired. RADIATION DOSE: NA LIMITATIONS: Obese patient, portable technique FINDINGS: LUNGS AND PLEURA: No opacities, masses or pneumothorax. No pleural effusion. MEDIASTINUM AND HILAR STRUCTURES: No masses. Contour normal. HEART AND VASCULAR STRUCTURES: Stable mild cardiomegaly BONES: No acute findings. HARDWARE: Left-sided pacemaker OTHER: No other significant finding. IMPRESSION: NO ACUTE RADIOGRAPHIC FINDING IN THE CHEST. TECHNICAL DOCUMENTATION: JOB ID: [id number] [employer]- All Rights Reserved Reading location - IP/workstation name: [email or web address]
[2017-08-31] MEDS ORDERED: ONDANSETRON 4 MG TAB.RAPDIS PO PRN (17:24)
[2017-08-31] MEDS ORDERED: ACETAMINOPHEN 325 MG TABLET PO PRN ×2 (17:24→21:35)
[2017-08-31] MEDS ORDERED: GLUCAGON,HUMAN RECOMB 1 MG INJ IM PRN (17:32)
[2017-08-31] MEDS ORDERED: DEXTROSE 50%-WATER 25 GM/50 ML DISP.SYRIN IV PRN ×2 (17:32)
[2017-08-31] MEDS ORDERED: DEXTROSE 40% GEL 15 GM TUBE PO PRN ×2 (17:32)
--- NOTE | 2017-08-31 17:58 | PDOC H&P ---
History of Present Illness Admission Date/PCP: 08/31/17 17:30 BLAISE RAY MD History of Present Illness: CLARENCE MOLINA is a 81 year old female with multiple comorbidities including A. fib, HTN, HLD, ОЛЬГА, obesity, DM, bipolar disorder and polymyalgia rheumatica, presents with chief complaint of shortness of breath. On arrival to ER patient is found to be in atrial fibrillation with RVR. She denies fever , cough, chest pain or diaphoresis. Patient states she was placed in assisted living and has not received her medication the way she is supposed to take it. Patient has underlying oxygen dependent COPD for which she has been on oxygen . Despite being on oxygen patient continued to have shortness of breath is worsening. She denies nausea, vomiting, abdominal pain or diarrhea. She does not have any urinary complaints. No orthopnea or paroxysmal nocturnal dyspnea. No dizziness, headache or blurring of vision. Her blood works are unremarkable and her chest x-ray reported as no acute cardiopulmonary pathology. Past Medical History Cardiac Medical History: Reports: Atrial Fibrillation, Hyperlipidema, Hypertension Denies: Myocardial Infarction Pulmonary Medical History: Reports: Bronchitis - 1973, Pneumonia - as a child Denies: Asthma, Chronic Obstructive Pulmonary Disease (COPD) Neurological Medical History: Denies: Seizures Endocrine Medical History: Reports: Diabetes Mellitus Type 2 GI Medical History: Denies: Hepatitis, Hiatal Hernia Musculoskeltal Medical History: Reports: Arthritis - generalized Psychiatric Medical History: Denies: Depression Hematology: Denies: Anemia, Sickle Cell Disease Past Surgical History Past Surgical History: Reports: Appendectomy, Hysterectomy, Tonsillectomy Denies: Amputation, Mastectomy, Pacemaker Social History Smoking Status: Former Smoker Frequency of Alcohol Use: None Hx Recreational Drug Use: No Drugs: None Hx Prescription Drug Abuse: No - Advance Directive Resuscitation Status: Full Code Family History Family History: COPD Parental Family History Reviewed: Yes Children Family History Reviewed: Yes Sibling(s) Family History Reviewed.: Yes Medication/Allergy Home Medications: Aspirin [Aspirin EC] 81 mg PO DAILY 07/16/17 Cholecalciferol (Vitamin D3) [Vitamin D3 2000 unit Tablet] 2,000 unit PO DAILY 07/16/17 Clobetasol Propionate [Clobetasol Propionate Cream] 1 applic TP DAILY 07/16/17 Cyanocobalamin (Vitamin B-12) [Vitamin B-12 SR 2000 mcg Tablet] 2,000 mcg PO DAILY 07/16/17 Donepezil HCl [Aricept] 10 mg PO DAILY 07/16/17 Folic Acid [Folvite 1 mg Tablet] 1 mg PO DAILY 07/16/17 Lactobacillus Acidophilus [Probiotic] 1 each PO ASDIR PRN 07/16/17 Levothyroxine Sodium [Synthroid] 112 mcg PO DAILY 07/16/17 NPH, Human Insulin Isophane [Novolin N (NPH) Insulin 100 unit/mL] 40 unit SUBCUT PC 07/16/17 Pantoprazole Sodium [Protonix] 40 mg PO BID 07/16/17 Prenat 115/Iron Fum/Folic/Dss [ 19 Tablet] 1 tab PO DAILY 07/16/17 Acetaminophen [Tylenol 325 mg Tablet] 650 mg PO Q4HP PRN tablet 07/24/17 Atorvastatin Calcium [Lipitor 40 mg Tablet] 40 mg PO QHS #30 tablet 07/24/17 Budesonide/Formoterol Fumarate [Symbicort HFA 160-4.5 mcg Inhaler 6 gm] 1 puff IH BID #1 inhaler 07/24/17 Carbamazepine [Tegretol Xr 200 mg Tab.sr] 200 mg PO Q12 #60 tab.sr.12h 07/24/17 Digoxin [Lanoxin 0.125 mg Tablet] 0.125 mg PO DAILY #30 tablet 07/24/17 Diltiazem HCl [Cardizem Cd 180 mg Capsule] 180 mg PO Q12 #60 capsule.cr Furosemide [Lasix 40 mg Tablet] 40 mg PO DAILY #30 tablet 07/24/17 Metoprolol Succinate [Toprol Xl 25 mg Tab.sr] 25 mg PO Q12 #60 tab.sr.24h Metoprolol Succinate [Toprol Xl 50 mg Tab.sr] 50 mg PO Q12 #60 tab.sr.24h Nortriptyline HCl [Pamelor 25 mg Capsule] 25 mg PO QHS #30 capsule 07/24/17 Polyethylene Glycol 3350 [Miralax Powder 17 gm/Packet] 17 gm PO DAILY powd.pack 07/24/17 Warfarin Sodium [Coumadin 7.5 mg Tablet] 7.5 mg PO QHS #30 tablet 07/24/17 Allergies/Adverse Reactions: hydromorphone HCl [From Dilaudid] Allergy (Intermediate, Verified 08/31/17 14:22 ) itching all over gabapentin [Gabapentin] Allergy (Verified 08/31/17 14:22) pregabalin [From Lyrica] Allergy (Verified 08/31/17 14:22) Review of Systems Constitutional: PRESENT: as per HPI Eyes: PRESENT: as per HPI Cardiovascular: PRESENT: as per HPI Respiratory: PRESENT: as per HPI Gastrointestinal: PRESENT: as per HPI Neurological: PRESENT: as per HPI Psychiatric: PRESENT: as per HPI Physical Exam Vital Signs: Temp Pulse Resp BP Pulse Ox 97.8 F 109 H 15 148/98 H 96 08/31/17 13:40 08/31/17 13:40 08/31/17 16:00 08/31/17 15:00 08/31/17 16:00 General appearance: PRESENT: mild distress Head exam: PRESENT: atraumatic Eye exam: PRESENT: conjunctiva pink Mouth exam: PRESENT: moist Respiratory exam: PRESENT: wheezes Cardiovascular exam: PRESENT: irregular rhythm, tachycardia GI/Abdominal exam: PRESENT: normal bowel sounds, soft. ABSENT: distended, guarding, mass, organolmegaly, rebound, tenderness Neurological exam: PRESENT: alert, awake, oriented to time, oriented to situation Psychiatric exam: PRESENT: normal mood Results Impressions: Chest X-Ray 08/31/17 14:16 IMPRESSION: NO ACUTE RADIOGRAPHIC FINDING IN THE CHEST. Assessment & Plan - Diagnosis (1) Atrial fibrillation with RVR Is this a current diagnosis for this admission?: Yes Plan: Patient is admitted with inpatient status to [facility]. Has been started on Cardizem drip. (2) COPD (chronic obstructive pulmonary disease) Qualifiers: Emphysema type: unspecified Is this a current diagnosis for this admission?: Yes Plan: Patient started on bronchodilator. (3) Hypertension Qualifiers: Hypertension type: essential hypertension Qualified Code(s): I10 - Essential (primary) hypertension Is this a current diagnosis for this admission?: Yes Plan: Continue her home medications. (4) Type 2 diabetes mellitus Is this a current diagnosis for this admission?: Yes Plan: I will continue her home medication and has been started on sliding scale (5) Hyperlipidemia Qualifiers: Hyperlipidemia type: unspecified Qualified Code(s): E78.5 - Hyperlipidemia , unspecified Is this a current diagnosis for this admission?: Yes Plan: Continue home medications. (6) Polymyalgia rheumatica Is this a current diagnosis for this admission?: Yes Plan: Stable. Continue home medications. - Time Time Spent: 30 to 50 Minutes - Inpatient Certification Medical Necessity: Need Close Monitoring Due to Risk of Patient Decompensation, Need For IV Fluids, Need For Continuous Telemetry Monitoring
--- NOTE | 2017-08-31 18:12 | RADIOLOGY REPORT (SQ) ---
EXAM DESCRIPTION: CTA CHEST COMPLETED DATE/TIME: 08/31/2017 6:00 pm REASON FOR STUDY: afib, sob COMPARISON: Plain radiograph TECHNIQUE: CT scan of the chest performed using helical scanning technique with dynamic intravenous contrast injection. Images reviewed with lung, soft tissue and bone windows. Reconstructed coronal and sagittal MPR images reviewed. Additional 3 dimensional post-processing performed to develop Maximal Intensity Projection images ([place] P). All images stored on PACS. All CT scanners at this facility use dose modulation, iterative reconstruction, and/or weight based d osing when appropriate to reduce radiation dose to as low as reasonably achievable (ALARA). [facility]: Dose Right [facility]: CareDose [facility]: Dose Right [facility]: Teradose 4D [facility]: [employer] CONTRAST TYPE AND DOSE: contrast/concentration: Isovue 370.00 mg/ml; Total Contrast Delivered: 75.0 ml; Total Saline Delivered: 70.0 ml Contrast bolus optimized for the pulmonary arteries. Not diagnostic for the aorta. RENAL FUNCTION: GFR > 60. RADIATION DOSE: CT Rad equipment meets quality standard of care and radiation dose reduction techniq ues were employed. CTDIvol: 15.0 - 15.5 mGy. DLP: 636 mGy-cm. . LIMITATIONS: None. FINDINGS: LUNGS AND PLEURA: Minimal hazy parenchymal opacities. Suggests vascular congestion. No e ffusions. AORTA AND GREAT VESSELS: No aneurysm. Contrast bolus not optimized for the aorta. HEART: No pericardial effusion. No significant coronary artery calcifications. PULMONARY ARTERIES: No emboli visualized in the main pulmonary arteries or the segmental branches. HILAR AND MEDIASTINAL STRUCTURES: No identified masses or abnormal nodes. HARDWARE: Pacemaker. UPPER ABDOMEN: No significant findings. Limited exam. THYROID AND OTHER SOFT TISSUES: No masses. No adenopathy. BONES: No acute or significant finding. 3D MIPS: Confirm above findings. OTHER: No other significant finding. IMPRESSION: Congestive failure with mild pulmonary edema. No pulmonary emboli. COMMENT: Quality ID # [id number]: Final reports with documentation of one or more dose reduction techniques (e.g., Automated exposure control, adjustment of the mA and/or kV according to patient size, use of iterative reconstruction technique) TECHNICAL DOCUMENTATION: JOB ID: [id number] [employer]- All Rights Reserved Reading location - IP/workstation name: [email or web address]
--- NOTE | 2017-08-31 19:21 | EKG REPORT ---
SEVERITY:- ABNORMAL ECG - ATRIAL FIBRILLATION PROLONGED QT INTERVAL : Confirmed by: Jairon Sullivan 31-Aug-2017 19:20:43
[2017-08-31] MEDS: APIXABAN 5 MG TABLET PO SCH (20:03)
[2017-08-31] MEDS: IPRATROPIUM/ALBUTEROL 0.5-2.5 MG/3 ML AMPUL NEB SCH (20:15)
[2017-08-31] MEDS: CARBAMAZEPINE 200 MG TAB.SR.12H PO SCH (22:29)
[2017-08-31] MEDS: NORTRIPTYLINE HCL 25 MG CAPSULE PO SCH (22:35)
[2017-08-31] MEDS: DILTIAZEM HCL 180 MG CAPSULE.CR PO SCH (22:35)
[2017-08-31] MEDS: INSULIN LISPRO 100 UNIT/ML 3 ML VIAL SUBCUT PRN (22:35)
[2017-08-31] MEDS: METOPROLOL SUCCINATE 25 MG TAB.SR.24H PO SCH (22:35)
[2017-08-31] MEDS: BUDESONIDE/FORMOTEROL 160-4.5 MCG 60 PUFF/6 GM MDI IH SCH (22:36)
[2017-08-31] MEDS: ATORVASTATIN CALCIUM 40 MG TABLET PO SCH (22:37)
[2017-08-31] MEDS: METOPROLOL SUCCINATE 50 MG TAB.SR.24H PO SCH (22:37)
[2017-09-01] MEDS: IPRATROPIUM/ALBUTEROL 0.5-2.5 MG/3 ML AMPUL NEB SCH ×4 (02:12→20:04)
[2017-09-01 05:02] LABS: ABSOLUTE BASOPHILS # (AUTO) 0.1 10^3/uL (0.0-0.2); ABSOLUTE EOSINOPHILS # (AUTO) 0.3 10^3/uL (0.0-0.6); ABSOLUTE LYMPHOCYTES (AUTO) 1.4 10^3/uL (0.5-4.7); ABSOLUTE MONOCYTES (AUTO) 0.6 10^3/uL (0.1-1.4); ABSOLUTE NEUT (AUTO) 5.3 10^3/uL (1.7-8.2); BASOPHILS % (AUTO) 0.9 % (0-2); EOSINOPHILS % (AUTO) 3.7 % (0-6); HEMATOCRIT 31.3 % (36.0-47.0); HEMOGLOBIN 10.3 g/dL (12.0-15.5); MEAN CORPUSCULAR HEMOGLOBIN 30.1 pg (27.0-33.4); MEAN CORPUSCULAR HGB CONC 32.8 g/dL (32.0-36.0); MEAN CORPUSCULAR VOLUME 92 fl (80-97); PLATELET COUNT 282 10^3/uL (150-450); RED BLOOD COUNT 3.42 10^6/uL (3.72-5.28); RED CELL DISTRIBUTION WIDTH 15.5 % (11.5-14.0); SEGMENTED NEUTROPHILS % (AUTO) 69.4 % (42-78); TOTAL CELLS COUNTED % (AUTO) 100 %; WHITE BLOOD COUNT 7.7 10^3/uL (4.0-10.5)
[2017-09-01 05:22] LABS: ANION GAP 15 (5-19); BLOOD UREA NITROGEN 12 mg/dL (7-20); CALCIUM 9.1 mg/dL (8.4-10.2); CARBON DIOXIDE 23 mmol/L (22-30); CHLORIDE 101 mmol/L (98-107); GLUCOSE 286 mg/dL (75-110); POTASSIUM 4.6 mmol/L (3.6-5.0); SODIUM 138.6 mmol/L (137-145)
[2017-09-01] MEDS: LEVOTHYROXINE SODIUM 0.112 MG TABLET PO SCH (06:02)
[2017-09-01] MEDS: LANSOPRAZOLE 30 MG TAB.RAP.DR PO SCH (06:02)
[2017-09-01] MEDS ORDERED: DILTIAZEM HCL/D5W 125 MG/125 ML RTUINJ IV ONE (06:52)
[2017-09-01] MEDS: DILTIAZEM HCL/D5W 125 MG/125 ML RTUINJ IV PRN (06:54)
[2017-09-01] MEDS: INSULIN NPH (ISOPHANE), HUMAN 100 UNIT/ML 3 ML SUBCUT SCH ×3 (08:28→18:07)
[2017-09-01] MEDS: INSULIN LISPRO 100 UNIT/ML 3 ML VIAL SUBCUT PRN ×4 (08:28→22:23)
[2017-09-01] MEDS ORDERED: (PENDING PHARMACY ID) (Nph, Human Insulin Isophane [Novolin N (Nph) Insulin 100 Unit/Ml] 4 SUBCUT SCH (09:00)
[2017-09-01] MEDS ORDERED: ALPRAZOLAM 0.5 MG TABLET PO PRN (09:37)
[2017-09-01] MEDS ORDERED: FOLIC ACID 1 MG TABLET PO SCH (10:00)
[2017-09-01] MEDS ORDERED: [UNRECOGNIZED DRUG - OTHER] PO SCH (10:00)
[2017-09-01] MEDS ORDERED: (PENDING PHARMACY ID) (Donepezil Hcl [Aricept] 10 MG) PO SCH (10:00)
[2017-09-01] MEDS ORDERED: POLYETHYLENE GLYCOL 3350 POWDER 17 GM/1 PACKET PO SCH (10:00)
[2017-09-01] MEDS ORDERED: CLOBETASOL PROPIONATE 0.05% CREAM 15 GM TP SCH (10:00)
[2017-09-01] MEDS ORDERED: CYANOCOBALAMIN (VITAMIN B-12) 1,000 MCG TABLET PO SCH (10:00)
[2017-09-01] MEDS ORDERED: DILTIAZEM HCL 120 MG CAP.SR.24H PO SCH (10:00)
[2017-09-01] MEDS ORDERED: PRENATAL VITAMIN W DHA CAPSULE PO SCH (10:00)
[2017-09-01] MEDS ORDERED: (PENDING PHARMACY ID) (Cholecalciferol (Vitamin D3) [Vitamin D3 2000 Unit Tablet] 2,000 UN PO SCH (10:00)
[2017-09-01] MEDS ORDERED: FUROSEMIDE 40 MG TABLET PO SCH (10:00)
[2017-09-01] MEDS ORDERED: CYANOCOBALAMIN PO SCH (10:00)
[2017-09-01] MEDS ORDERED: (PENDING PHARMACY ID) (Lactobacillus Acidophilus [Probiotic] 1 EACH) PO SCH (10:00)
[2017-09-01] MEDS ORDERED: ASPIRIN 81 MG TABLET, ENT COATED PO SCH (10:00)
[2017-09-01] MEDS ORDERED: DONEPEZIL HCL 5 MG TABLET PO SCH (10:00)
[2017-09-01] MEDS ORDERED: CHOLECALCIFEROL (D3) 1,000 UNIT TABLET PO SCH (10:00)
[2017-09-01] MEDS ORDERED: LACTOBACILLUS ACIDOPHILUS 250 MG TAB PO SCH (10:00)
[2017-09-01] MEDS ORDERED: DIGOXIN 0.125 MG TABLET PO SCH (10:00)
[2017-09-01] MEDS: APIXABAN 5 MG TABLET PO SCH ×2 (10:30→18:06)
[2017-09-01] MEDS: DILTIAZEM HCL 180 MG CAPSULE.CR PO SCH ×2 (10:46→22:13)
[2017-09-01] MEDS: CARBAMAZEPINE 200 MG TAB.SR.12H PO SCH ×2 (10:47→22:21)
[2017-09-01] MEDS: BUDESONIDE/FORMOTEROL 160-4.5 MCG 60 PUFF/6 GM MDI IH SCH ×2 (10:48→22:14)
[2017-09-01] MEDS: METOPROLOL SUCCINATE 50 MG TAB.SR.24H PO SCH (10:50)
[2017-09-01] MEDS: METOPROLOL SUCCINATE 25 MG TAB.SR.24H PO SCH (10:50)
--- NOTE | 2017-09-01 12:21 | PDOC PROGRESS REPORT ---
Subjective Progress Note for:: 09/01/17 Subjective:: This is 81 years old female patient admitted with chief complaint of shortness of breath. Patient is found to have A. fib with RVR for which patient has been started on Cardizem drip. This morning her heart rate is trended down to 86. Cardizem drip was discontinued and patient switched to p.o. Cardizem. She did report this her shortness of breath has been subsiding. She complains of sleepless night and she asks for sleep. Reason For Visit: A.FIB WITH RVR Physical Exam Vital Signs: Temp Pulse Resp BP Pulse Ox 97.8 F 90 18 132/90 H 97 09/01/17 07:41 09/01/17 12:00 09/01/17 08:11 09/01/17 08:00 09/01/17 08:11 Intake & Output 08/31/17 09/01/17 09/02/17 06:59 06:59 06:59 Intake Total 85 Output Total 300 Balance -215 Weight 94.1 kg General appearance: PRESENT: no acute distress Head exam: PRESENT: atraumatic Respiratory exam: PRESENT: clear to auscultation chelo. ABSENT: rales, rhonchi, wheezes Cardiovascular exam: PRESENT: RRR. ABSENT: diastolic murmur, rubs, systolic murmur GI/Abdominal exam: PRESENT: normal bowel sounds, soft. ABSENT: distended, guarding, mass, organolmegaly, rebound, tenderness Neurological exam: PRESENT: alert, awake, oriented to time, oriented to situation Psychiatric exam: PRESENT: normal mood Results Laboratory Results: 09/01/17 04:41 09/01/17 04:41 09/01/17 09/01/17 04:41 04:41 WBC 7.7 RBC 3.42 L Hgb 10.3 L Hct 31.3 L MCV 92 MCH 30.1 MCHC 32.8 RDW 15.5 H Plt Count 282 Seg Neutrophils % 69.4 Lymphocytes % 18.0 Monocytes % 8.0 Eosinophils % 3.7 Basophils % 0.9 Absolute Neutrophils 5.3 Absolute Lymphocytes 1.4 Absolute Monocytes 0.6 Absolute Eosinophils 0.3 Absolute Basophils 0.1 Sodium 138.6 Potassium 4.6 Chloride 101 Carbon Dioxide 23 Anion Gap 15 BUN 12 Creatinine 0.72 Est GFR ( Amer) > 60 Est GFR (Non-Af Amer) > 60 Glucose 286 H Calcium 9.1 Impressions: Chest X-Ray 08/31/17 14:16 IMPRESSION: NO ACUTE RADIOGRAPHIC FINDING IN THE CHEST. Chest/Abdomen CTA 08/31/17 15:03 IMPRESSION: Congestive failure with mild pulmonary edema. No pulmonary emboli. Assessment & Plan - Diagnosis (1) Atrial fibrillation with RVR Is this a current diagnosis for this admission?: Yes Plan: Improving. Patient switched to p.o. Cardizem. She is potential discharge for tomorrow (2) COPD (chronic obstructive pulmonary disease) Qualifiers: Emphysema type: unspecified Is this a current diagnosis for this admission?: Yes Plan: Patient started on bronchodilator. (3) Hypertension Qualifiers: Hypertension type: essential hypertension Qualified Code(s): I10 - Essential (primary) hypertension Is this a current diagnosis for this admission?: Yes Plan: Continue her home medications. (4) Type 2 diabetes mellitus Is this a current diagnosis for this admission?: Yes Plan: I will continue her home medication and has been started on sliding scale (5) Hyperlipidemia Qualifiers: Hyperlipidemia type: unspecified Qualified Code(s): E78.5 - Hyperlipidemia , unspecified Is this a current diagnosis for this admission?: Yes Plan: Continue home medications. (6) Polymyalgia rheumatica Is this a current diagnosis for this admission?: Yes Plan: Stable. Continue home medications.
[2017-09-01] MEDS ORDERED: POLYETHYLENE GLYCOL 3350 POWDER 17 GM/1 PACKET PO PRN (13:30)
[2017-09-01] MEDS: NORTRIPTYLINE HCL 25 MG CAPSULE PO SCH (22:15)
[2017-09-01] MEDS: ATORVASTATIN CALCIUM 40 MG TABLET PO SCH (22:15)
[2017-09-02] MEDS: IPRATROPIUM/ALBUTEROL 0.5-2.5 MG/3 ML AMPUL NEB SCH ×2 (02:15→08:58)
[2017-09-02] MEDS: LANSOPRAZOLE 30 MG TAB.RAP.DR PO SCH (05:25)
[2017-09-02] MEDS: LEVOTHYROXINE SODIUM 0.112 MG TABLET PO SCH (05:25)
[2017-09-02 05:46] LABS: ABSOLUTE BASOPHILS # (AUTO) 0.1 10^3/uL (0.0-0.2); ABSOLUTE EOSINOPHILS # (AUTO) 0.2 10^3/uL (0.0-0.6); ABSOLUTE LYMPHOCYTES (AUTO) 1.3 10^3/uL (0.5-4.7); ABSOLUTE MONOCYTES (AUTO) 0.6 10^3/uL (0.1-1.4); ABSOLUTE NEUT (AUTO) 3.3 10^3/uL (1.7-8.2); EOSINOPHILS % (AUTO) 4.1 % (0-6); HEMATOCRIT 31.8 % (36.0-47.0); HEMOGLOBIN 10.8 g/dL (12.0-15.5); LYMPHOCYTES % (AUTO) 24.6 % (13-45); MEAN CORPUSCULAR HEMOGLOBIN 30.5 pg (27.0-33.4); MEAN CORPUSCULAR HGB CONC 33.8 g/dL (32.0-36.0); MEAN CORPUSCULAR VOLUME 90 fl (80-97); MONOCYTES % (AUTO) 10.5 % (3-13); PLATELET COUNT 232 10^3/uL (150-450); RED BLOOD COUNT 3.53 10^6/uL (3.72-5.28); RED CELL DISTRIBUTION WIDTH 15.1 % (11.5-14.0); SEGMENTED NEUTROPHILS % (AUTO) 59.8 % (42-78); TOTAL CELLS COUNTED % (AUTO) 100 %; WHITE BLOOD COUNT 5.5 10^3/uL (4.0-10.5)
[2017-09-02 06:08] LABS: ANION GAP 12 (5-19); BLOOD UREA NITROGEN 13 mg/dL (7-20); CARBON DIOXIDE 29 mmol/L (22-30); CHLORIDE 105 mmol/L (98-107); GLUCOSE 67 mg/dL (75-110); POTASSIUM 3.6 mmol/L (3.6-5.0); SODIUM 145.9 mmol/L (137-145)
--- NOTE | 2017-09-02 07:56 | PDOC DISCHARGE SUMMARY ---
General - Admit/Disc Date/PCP Admission Date/Primary Care Provider: 08/31/17 17:30 BLAISE RAY MD Discharge Date: 09/02/17 - Discharge Diagnosis (1) Atrial fibrillation with RVR Is this a current diagnosis for this admission?: Yes (2) COPD (chronic obstructive pulmonary disease) Is this a current diagnosis for this admission?: Yes (3) Hypertension Is this a current diagnosis for this admission?: Yes (4) Type 2 diabetes mellitus Is this a current diagnosis for this admission?: Yes (5) Hyperlipidemia Is this a current diagnosis for this admission?: Yes (6) Polymyalgia rheumatica Is this a current diagnosis for this admission?: Yes - Additional Information Resuscitation Status: Full Code Prescriptions: Apixaban [Eliquis 5 mg Tablet] 5 mg PO BID #60 tablet Diltiazem HCl [Cardizem Cd 180 mg Capsule] 180 mg PO Q12 #60 capsule.cr Home Medications: Aspirin [Aspirin EC] 81 mg PO DAILY 07/16/17 Cholecalciferol (Vitamin D3) [Vitamin D3 2000 unit Tablet] 2,000 unit PO DAILY 07/16/17 Clobetasol Propionate [Clobetasol Propionate Cream] 1 applic TP DAILY 07/16/17 Cyanocobalamin (Vitamin B-12) [Vitamin B-12 SR 2000 mcg Tablet] 2,000 mcg PO DAILY 07/16/17 Donepezil HCl [Aricept] 10 mg PO DAILY 07/16/17 Folic Acid [Folvite 1 mg Tablet] 1 mg PO DAILY 07/16/17 Lactobacillus Acidophilus [Probiotic] 1 each PO DAILY 07/16/17 Levothyroxine Sodium [Synthroid] 112 mcg PO Q6AM 07/16/17 NPH, Human Insulin Isophane [Novolin N (NPH) Insulin 100 unit/mL] 40 unit SUBCUT PC 07/16/17 Pantoprazole Sodium [Protonix] 40 mg PO BID 07/16/17 Prenat 115/Iron Fum/Folic/Dss [ 19 Tablet] 1 tab PO DAILY 07/16/17 Atorvastatin Calcium [Lipitor 40 mg Tablet] 40 mg PO QHS #30 tablet 07/24/17 Carbamazepine [Tegretol Xr 200 mg Tab.sr] 200 mg PO Q12 #60 tab.sr.12h 07/24/17 Digoxin [Lanoxin 0.125 mg Tablet] 0.125 mg PO DAILY #30 tablet 07/24/17 Furosemide [Lasix 40 mg Tablet] 40 mg PO DAILY #30 tablet 07/24/17 Metoprolol Succinate [Toprol Xl 25 mg Tab.sr] 25 mg PO Q12 #60 tab.sr.24h Metoprolol Succinate [Toprol Xl 50 mg Tab.sr] 50 mg PO Q12 #60 tab.sr.24h Nortriptyline HCl [Pamelor 25 mg Capsule] 25 mg PO QHS #30 capsule 07/24/17 Polyethylene Glycol 3350 [Miralax Powder 17 gm/Packet] 17 gm PO DAILY powd.pack 07/24/17 Acetaminophen [Tylenol 325 mg Tablet] 650 mg PO Q4HP PRN 08/31/17 Budesonide/Formoterol Fumarate [Symbicort HFA 160-4.5 mcg Inhaler 6 gm] 1 puff IH Q12 08/31/17 Apixaban [Eliquis 5 mg Tablet] 5 mg PO BID #60 tablet 09/02/17 Diltiazem HCl [Cardizem Cd 180 mg Capsule] 180 mg PO Q12 #60 capsule.cr History of Present Illness History of Present Illness: CLARENCE MOLINA is a 81 year old female with multiple comorbidities including A. fib, HTN, HLD, ОЛЬГА, obesity, DM, bipolar disorder and polymyalgia rheumatica, presents with chief complaint of shortness of breath. On arrival to ER patient is found to be in atrial fibrillation with RVR. She denies fever , cough, chest pain or diaphoresis. Patient states she was placed in assisted living and has not received her medication the way she is supposed to take it. Patient has underlying oxygen dependent COPD for which she has been on oxygen . Despite being on oxygen patient continued to have shortness of breath is worsening. She denies nausea, vomiting, abdominal pain or diarrhea. She does not have any urinary complaints. No orthopnea or paroxysmal nocturnal dyspnea. No dizziness, headache or blurring of vision. Her blood works are unremarkable and her chest x-ray reported as no acute cardiopulmonary pathology. Hospital Course Hospital Course: This is 81 years old female patient admitted with chief complaint of shortness of breath. Patient is found to have A. fib with RVR for which patient has been started on Cardizem drip. Cardizem drip was discontinued once her heart rate controlled and patient switched to p.o. Cardizem. Her shortness of breath has subsided patient. Patient also reports she has a restful night. I will send her home with Cardizem 180 mg twice a day and Eliquis 5 mg p.o. twice daily. I discontinued her warfarin. This morning I seen patient resting in bed comfortably. She is awake alert and oriented. Advised her to comply with her medication and to keep up with her upcoming appointment with her primary care physician. Physical Exam Vital Signs: Temp Pulse Resp BP Pulse Ox 97.9 F 62 17 138/77 H 95 09/02/17 03:39 09/02/17 03:39 09/02/17 03:39 09/02/17 03:39 09/02/17 03:39 Intake & Output 09/01/17 09/02/17 09/03/17 06:59 06:59 06:59 Intake Total 85 1464 Output Total 300 Balance -215 1464 Weight 94.1 kg 97.3 kg General appearance: PRESENT: no acute distress Head exam: PRESENT: atraumatic Eye exam: PRESENT: conjunctiva pink Mouth exam: PRESENT: moist Neck exam: ABSENT: carotid bruit, JVD, lymphadenopathy, thyromegaly Respiratory exam: PRESENT: clear to auscultation chelo. ABSENT: rales, rhonchi, wheezes Cardiovascular exam: PRESENT: irregular rhythm GI/Abdominal exam: PRESENT: normal bowel sounds, soft. ABSENT: distended, guarding, mass, organolmegaly, rebound, tenderness Neurological exam: PRESENT: alert, awake, oriented to time, oriented to situation Psychiatric exam: PRESENT: normal mood Results Laboratory Results: 09/02/17 04:44 09/02/17 04:44 09/02/17 09/02/17 04:44 04:44 WBC 5.5 RBC 3.53 L Hgb 10.8 L Hct 31.8 L MCV 90 MCH 30.5 MCHC 33.8 RDW 15.1 H Plt Count 232 Seg Neutrophils % 59.8 Lymphocytes % 24.6 Monocytes % 10.5 Eosinophils % 4.1 Basophils % 1.0 Absolute Neutrophils 3.3 Absolute Lymphocytes 1.3 Absolute Monocytes 0.6 Absolute Eosinophils 0.2 Absolute Basophils 0.1 Sodium 145.9 H Potassium 3.6 Chloride 105 Carbon Dioxide 29 Anion Gap 12 BUN 13 Creatinine 0.64 Est GFR ( Amer) > 60 Est GFR (Non-Af Amer) > 60 Glucose 67 L Calcium 9.0 Impressions: Chest X-Ray 08/31/17 14:16 IMPRESSION: NO ACUTE RADIOGRAPHIC FINDING IN THE CHEST. Chest/Abdomen CTA 08/31/17 15:03 IMPRESSION: Congestive failure with mild pulmonary edema. No pulmonary emboli. Qualifiers - * PATIENT BEING DISCHARGED WITH ANY OF THE FOLLOWING DIAGNOSIS: No
[2017-09-02 08:21] VITALS: BP 146/84
== END 2017-09-02 10:06 | disposition home or self-care (01) | DRG 310 ==
LOC: ER 13:23 → EH 17:30 → 3W 19:02
PROVIDERS: ADMIT Internal Medicine; ATTEND Internal Medicine
DX: I48.91 Unspecified atrial fibrillation (principal); E78.00 Pure hypercholesterolemia, unspecified; I10 Essential (primary) hypertension; E11.8 Type 2 diabetes mellitus with unspecified complications; M19.90 Unspecified osteoarthritis, unspecified site; M35.3 Polymyalgia rheumatica; F31.9 Bipolar disorder, unspecified; Z79.01 Long term (current) use of anticoagulants
CPT/HCPCS: 36415; 71045; 71275; 80048; 82962; 83880; 84484; 85025; 85610; 93005; 93010; 94640; 99285; J1815; J3490; J7620

== ENCOUNTER 2018-04-13 08:06 | Day surgery (SDC) | payer MEDICARE ==
[2018-03-31 11:59] LABS: HEMATOCRIT 38.5 % (36.0-47.0); HEMOGLOBIN 13.2 g/dL (12.0-15.5); MEAN CORPUSCULAR HEMOGLOBIN 31.3 pg (27.0-33.4); MEAN CORPUSCULAR HGB CONC 34.3 g/dL (32.0-36.0); MEAN CORPUSCULAR VOLUME 91 fl (80-97); PLATELET COUNT 222 10^3/uL (150-450); RED BLOOD COUNT 4.23 10^6/uL (3.72-5.28); RED CELL DISTRIBUTION WIDTH 13.5 % (11.5-14.0); WHITE BLOOD COUNT 5.1 10^3/uL (4.0-10.5)
[2018-03-31 12:02] LABS: PARTIAL THROMBOPLASTIN TIME 30.4 SEC (23.5-35.8); PROTHROMBIN TIME 13.7 SEC (11.4-15.4)
[2018-03-31 12:23] LABS: BLOOD UREA NITROGEN 10 mg/dL (7-20); CALCIUM 9.8 mg/dL (8.4-10.2); GLUCOSE 249 mg/dL (75-110)
[2018-03-31 12:24] LABS: ANION GAP 10 (5-19); CARBON DIOXIDE 32 mmol/L (22-30); CHLORIDE 100 mmol/L (98-107); POTASSIUM 4.5 mmol/L (3.6-5.0)
--- NOTE | 2018-04-01 00:28 | EKG REPORT ---
SEVERITY:- BORDERLINE ECG - SINUS RHYTHM BORDERLINE T ABNORMALITIES, ANT-LAT LEADS : Confirmed by: Alena Jensen MD 01-Apr-2018 00:28:02
[~2018-04-13 08:06] MED LIST: CEFAZOLIN 1 GM/D5W RTU 1 GM/50 ML RTUPB IV ONE; CEFAZOLIN 1 GM/D5W RTU 1 GM/50 ML RTUPB IV PRN; LACTATED RINGERS 1000 ML IV PRN; LIDOCAINE 0.5% INJ-PF (5 MG/ML) 50 ML SDV SUBCUT PRN
[2018-04-13] MEDS ORDERED: POVIDONE-IODINE 5% OPH PREP SOLN 30 ML ONE (08:23)
[2018-04-13] MEDS ORDERED: LIDOCAINE 1%/EPINEPHRINE INJ 20 ML VIAL ONE (08:23)
[2018-04-13] MEDS ORDERED: SODIUM BICARBONATE 8.4% INJ 50 MEQ/50 ML DISP.SYRIN ONE (08:23)
[2018-04-13] MEDS ORDERED: MIDAZOLAM 2 MG/2 ML INJ ONE (09:11)
[2018-04-13] MEDS ORDERED: MORPHINE SULFATE 10 MG/ML INJ ONE (09:11)
[2018-04-13] MEDS ORDERED: PROPOFOL INJ 200 MG/20 ML VIAL IV ONE (09:12)
[2018-04-13 09:56] LABS: INTERNATIONAL RATION (INR) 0.92; PROTHROMBIN TIME 12.8 SEC (11.4-15.4)
[2018-04-13 09:57] LABS: PARTIAL THROMBOPLASTIN TIME 26.4 SEC (23.5-35.8)
--- NOTE | 2018-04-13 11:42 | Operative Report ---
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 Patient was brought into the operating room and placed on the operating room table in a supine position. Patient was then prepped with a Betadine scrub and Betadine solution and draped in a sterile and aseptic manner. The area was then marked. 12 O'clock was marked towards the nose 3 O'clock was marked towards the upper eyelid 6:00 was marked towards the sikh 9:00 was marked towards the lower cheek The area was then anesthetized with 1% lidocaine with epinephrine and bicarbonate for its anesthetic and hemostatic effects. The area was then excised and marked at 12:00. The specimen was sent for frozen section. The results came back that the deep and lateral margins were free. We had considered a primary closure but this would go against the natural relaxed skin tension lines. A primary closure would be too tight and would have increased chance of dehiscence. This will leave more of a scar so we decided to use a rotation flap reconstruction which would camouflage the scar better and take tension off of the closure so that would be less chances of complications. The design of the flap took into consideration that there would be no forces on the lower eyelid. Patient had a very weak eyelid and we cannot put any forces on the eyelid otherwise we will end up developing an ectropion. The forces were directed towards the nose and the upper lip and the sikh area. Then we went ahead and outlined the flap and anesthetized it. We then incised the flap and developed a flap maintaining the subdermal plexus. Then we undermined 360 to allow for plate like scarring and minimize trap door deformity. Throughout the case hemostasis was achieved with the bipolar. We then sutured the flap into its new position using 5-0 Vicryl for the subcutaneous and deep dermis. Skin was closed with a interrupted stitch using 5-0 Prolene with knots being tied on the outside. We then applied tincture benzoin and Steri-Strips followed by a light pressure dressing. Patient was then reversed from anesthesia and taken to the [facility] for recovery. The patient tolerated well. There were no complications. Lesion size was approximately 1.9 cm please see pathology for actual size. Portions of this note may be dictated using [employer] voice recognition software. Occasional variations and spelling and vocabulary could be possible and are unintentional. Additionally, there is a chance that some errors may not be caught or corrected. Please notify the author of any discrepancies noted or if any statements are un clear. Subjective: No complaints Objective: Vital signs stable afebrile No bleeding Dressing intact Assessment and plan: Doing well. Elevate the operative site. Resume medications. Take antibiotics for 1 day Follow-up Full instructions were given to the patient and family and they understand Portions of this note may be dictated using [employer] voice recognition software. Occasional variations and spelling and vocabulary could be possible and are unintentional. Additionally, there is a chance that some errors may not be caught or corrected. Please notify the offer of any discrepancies noted or if any statements are unclear.
--- NOTE | 2018-04-13 11:43 | Discharge Summary ---
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 Leave the steri-strip tapes on for 5 days, then removal. Then cleaning wound with peroxide and apply Neosporin/bacitracin 3 times per day. Antibiotics for 1 day, then discontinue. Elevate operative area to decrease swelling. Do not strain, or lift heavy objects. Call for excessive bleeding, increased temperature of 101, uncontrolled pain, or excessive nausea or vomiting. You may reach Dr. Hoang through his office at [phone]. In the event of an emergency after hours, then contact Dr. Hoang through [facility]. Return to the office for a postop check on . The time will be scheduled by the nursing staff of [facility] prior to discharge. Please give the patient a copy of their labs and EKG so they can bring this to their PMD. Thank you Portions of this note may be dictated using [employer] voice recognition software. Occasional variations and spelling and vocabulary could be possible and are unintentional. Additionally, there is a chance that some errors may not be caught or corrected. Please notify the offer of any discrepancies noted or if any statements are unclear. Referrals: BLAISE RAY MD [Primary Care Provider] - Discharge Diet: As Tolerated Discharge Activity: No Lifting/Push/Pulling Report the Following to Your Physician Immediately: Unusual Bleeding - Keep head elevated. Do not rub the eyes.
[2018-04-13] MEDS ORDERED: ONDANSETRON HCL INJ/PF 4 MG/2 ML SDV IV PRN (12:23)
[2018-04-13] MEDS ORDERED: PROMETHAZINE HCL INJ 25 MG/1 ML VIAL IV PRN (12:23)
[2018-04-13] MEDS ORDERED: FENTANYL CITRATE INJ/PF 100 MCG/2 ML AMPUL IV PRN ×3 (12:23)
[2018-04-13] MEDS ORDERED: DIPHENHYDRAMINE HCL 50 MG/ML VIAL IV PRN (12:23)
[2018-04-13] MEDS ORDERED: MEPERIDINE HCL/PF INJ 25 MG/1 ML DISP.SYRIN IV PRN (12:23)
[2018-04-13 13:12] VITALS: BP 128/79
== END 2018-04-13 13:05 | disposition home or self-care (01) ==
LOC: OROUT 08:06
PROVIDERS: ATTEND Plastic Surgery
DX: C44.1992 Other specified malignant neoplasm of skin of left lower eyelid, including canthus (principal); E07.9 Disorder of thyroid, unspecified; R06.02 Shortness of breath; Z85.828 Personal history of other malignant neoplasm of skin; E11.9 Type 2 diabetes mellitus without complications; I11.9 Hypertensive heart disease without heart failure; I48.91 Unspecified atrial fibrillation; Z88.5 Allergy status to narcotic agent; Z88.8 Allergy status to other drugs, medicaments and biological substances; Z79.4 Long term (current) use of insulin; Z79.01 Long term (current) use of anticoagulants; Z79.899 Other long term (current) drug therapy; Z79.51 Long term (current) use of inhaled steroids; Z79.891 Long term (current) use of opiate analgesic
CPT/HCPCS: 93005; 36415 ×2; 82947; 85027; 85610 ×2; 85730 ×2; 80048; 88305 ×2; 88331 ×2; 93010; 14060; J2250; J0690; J3490 ×3; J2704; 300; J2270

== ENCOUNTER 2018-05-11 09:06 | Day surgery (SDC) | payer MEDICARE ==
[~2018-05-11 09:06] MED LIST changes: +BACITRACIN ZINC OINTMENT 15 GM ONE; -CEFAZOLIN 1 GM/D5W RTU 1 GM/50 ML RTUPB IV ONE; -LACTATED RINGERS 1000 ML IV PRN; -LIDOCAINE 0.5% INJ-PF (5 MG/ML) 50 ML SDV SUBCUT PRN; +LIDOCAINE 1%/EPINEPHRINE INJ 20 ML VIAL ONE; +POVIDONE-IODINE 5% OPH PREP SOLN 30 ML ONE; +SODIUM BICARBONATE 8.4% INJ 50 MEQ/50 ML DISP.SYRIN ONE
[2018-05-11] MEDS ORDERED: PROPOFOL INJ 200 MG/20 ML VIAL IV ONE (09:09)
[2018-05-11] MEDS ORDERED: LIDOCAINE 1% INJ-PF (10 MG/ML) 30 ML SDV ONE (09:41)
[2018-05-11] MEDS ORDERED: MIDAZOLAM 2 MG/2 ML INJ ONE (09:53)
--- NOTE | 2018-05-11 11:18 | Operative Report ---
Operative Report DATE OF SURGERY: 05/11/18 PREOPERATIVE DIAGNOSIS: Suspected basal cell carcinoma of the right forehead POSTOPERATIVE DIAGNOSIS: Basal squamous cell carcinoma of the right forehead OPERATION: Excision of basal squamous cell carcinoma of the right forehead with frozen section margin control and reconstruction with a 0 to S plasty flap reconstruction SURGEON: FELISHA SOLIS ANESTHESIA: LMAC TISSUE REMOVED OR ALTERED: Basal squamous cell carcinoma from the right forehead COMPLICATIONS: None ESTIMATED BLOOD LOSS: Minimal PROCEDURE: Patient seen and was marked prior to being brought into the operating room. Patient was brought into the operating room and placed on the operating room table in a supine position. Patient was then prepped with a Betadine scrub and Betadine solution and draped in a sterile and aseptic manner. The area was then marked. 12 O'clock was marked towards the midline forehead 3 O'clock was marked towards the brow 6:00 was marked towards the amish 9:00 was marked towards the hairline The area was then anesthetized with 1% lidocaine with epinephrine and bicarbonate for its anesthetic and hemostatic effects. The area was then excised and marked at 12:00. The specimen was sent for frozen section. The results came back that the deep and lateral margins were free. We had considered a primary closure but this would go against the natural relaxed skin tension lines. A primary closure would be too tight and would have increased chance of dehiscence. This will leave more of a scar so we decided to use a the hairline flap reconstruction which would camouflage the scar better and take tension off of the closure so that would be less chances of complications. This flap will allow us to have the reconstructive final incision better aligned with the forehead wrinkles. Then we went ahead and outlined the flap and anesthetized it. We then incised the flap and developed a flap maintaining the subdermal plexus. Then we undermined 360 to allow for plate like scarring and minimize trap door deformity. Throughout the case hemostasis was achieved with the bipolar. We then sutured the flap into its new position using 5-0 Vicryl for the subcutaneous and deep dermis. Skin was closed with a interrupted stitch using 5-0 Prolene with knots being tied on the outside. We then applied tincture benzoin and Steri-Strips followed by a light pressure dressing. Patient was then reversed from anesthesia and taken to the [facility] for recovery. The patient tolerated well. There were no complications. Lesion size was approximately 1.5 x 1.6 cm please see pathology for actual size. Portions of this note may be dictated using [employer] voice recognition software. Occasional variations and spelling and vocabulary could be possible and are unintentional. Additionally, there is a chance that some errors may not be caught or corrected. Please notify the author of any discrepancies noted or if any statements are unclear. Subjective: No complaints Objective: Vital signs stable afebrile No bleeding Dressing intact Assessment and plan: Doing well. Elevate the operative site. Resume medications. Take antibiotics for 1 day Follow-up Full instructions were given to the patient and family and they understand Portions of this note may be dictated using [employer] voice recognition software. Occasional variations and spelling and vocabulary could be possible and are unintentional. Additionally, there is a chance that some errors may not be caught or corrected. Please notify the offer of any discrepancies noted or if any statements are unclear.
--- NOTE | 2018-05-11 11:20 | Discharge Summary ---
Discharge Summary (SDC) - Discharge Final Diagnosis: Basal squamous cell carcinoma of the right forehead Date of Surgery: 05/11/18 Condition: Good Treatment or Instructions: Leave the top dressing on for 2 days, then removed. Leave the steri-strip tapes on for 5 days, then removal. Then cleaning wound with peroxide and apply Neosporin/bacitracin 3 times per day. Antibiotics for 1 day, then discontinue. Elevate operative area to decrease swelling. Do not strain, or lift heavy objects. Call for excessive bleeding, increased temperature of 101, uncontrolled pain, or excessive nausea or vomiting. You may reach Dr. Hoang through his office at [phone]. In the event of an emergency after hours, then contact Dr. Hoang through [facility]. Return to the office for a postop check on . The time will be scheduled by the nursing staff of [facility] prior to discharge. Please give the patient a copy of their labs and EKG so they can bring this to their PMD. Thank you Portions of this note may be dictated using [employer] voice recognition software. Occasional variations and spelling and vocabulary could be possible and are unintentional. Additionally, there is a chance that some errors may not be caught or corrected. Please notify the offer of any discrepancies noted or if any statements are unclear. Referrals: BLAISE RAY MD [Primary Care Provider] - Discharge Diet: As Tolerated Discharge Activity: No Lifting/Push/Pulling Report the Following to Your Physician Immediately: Unusual Bleeding - Keep head elevated. No bending or straining.
== END 2018-05-11 11:55 | disposition home or self-care (01) ==
LOC: SC 09:06
PROVIDERS: ATTEND Plastic Surgery
DX: C44.329 Squamous cell carcinoma of skin of other parts of face (principal); L57.0 Actinic keratosis; L57.8 Other skin changes due to chronic exposure to nonionizing radiation; E11.9 Type 2 diabetes mellitus without complications; I11.9 Hypertensive heart disease without heart failure; I48.91 Unspecified atrial fibrillation; E07.9 Disorder of thyroid, unspecified; R06.02 Shortness of breath; K21.9 Gastro-esophageal reflux disease without esophagitis; Z79.01 Long term (current) use of anticoagulants; Z79.4 Long term (current) use of insulin; Z79.899 Other long term (current) drug therapy; Z95.0 Presence of cardiac pacemaker; Z99.81 Dependence on supplemental oxygen
CPT/HCPCS: 82962; 88305 ×2; 88331 ×2; 14040; J2250; J0690; J3490 ×4; J2704; 300

== ENCOUNTER → 2018-07-01 | Outpatient (CLI) | payer MEDICARE ==
[2018-07-01 09:49] LABS: ALANINE AMINOTRANSFERASE 23 U/L (9-52); ALBUMIN 4.1 g/dL (3.5-5.0); ALKALINE PHOSPHATASE 97 U/L (38-126); ANION GAP 8 (5-19); ASPARTATE AMINO TRANSFERASE 19 U/L (14-36); BILIRUBIN,DIRECT 0.3 mg/dL (0.0-0.4); BILIRUBIN,TOTAL 0.3 mg/dL (0.2-1.3); BLOOD UREA NITROGEN 16 mg/dL (7-20); CALCIUM 9.5 mg/dL (8.4-10.2); CARBON DIOXIDE 30 mmol/L (22-30); CHLORIDE 103 mmol/L (98-107); CHOLESTEROL 186.02 mg/dL (0-200); GLUCOSE 228 mg/dL (75-110); POTASSIUM 4.2 mmol/L (3.6-5.0); SODIUM 140.6 mmol/L (137-145); TOTAL PROTEIN 6.9 g/dL (6.3-8.2); TRIGLYCERIDES 285 mg/dL (<150)
[2018-07-01 10:01] LABS: DIRECT LDL 65 mg/dL (<100)
[2018-07-01 10:08] LABS: FREE T3 3.97 pg/mL (2.77-5.27); FREE T4 (FREE THYROXINE) 0.73 ng/dL (0.78-2.19)
[2018-07-01 10:21] LABS: THYROID STIMULATING HORMONE 6.23 uIU/mL (0.47-4.68)
[2018-07-02 12:37] LABS: MICROALBUMIN URINE 8.5 ug/mL (Not Estab.)
== END ==
LOC: OD 08:25
PROVIDERS: ATTEND Family Medicine
DX: E11.8 Type 2 diabetes mellitus with unspecified complications (principal); E78.5 Hyperlipidemia, unspecified; E03.9 Hypothyroidism, unspecified; G31.84 Mild cognitive impairment of uncertain or unknown etiology; Z51.81 Encounter for therapeutic drug level monitoring; Z79.899 Other long term (current) drug therapy
CPT/HCPCS: 36415; 80053; 80061; 82043; 82570; 82607; 83036; 84439; 84443; 84481